=== PATIENT | male | born 1940 | race Caucasian/White ===

== ENCOUNTER → 2016-11-26 | Outpatient (CLI) | payer OTHER ==
[~2016-11-26] MED LIST: ASPEC325 PO; ATOR-22 PO; INSDGI SC; LISI-729 PO; METF-384 PO; NTRGSL/4 UT; TAMS0.4C38 PO
[2016-11-26 10:11] LABS: ESTIMATED AVERAGE GLUCOSE 163 mg/dl; HA1C FLAG Normal (Normal)
[2016-11-26 10:34] LABS: RATIO 47.7 mcg/mg (0-30.0)
[2016-11-26 10:43] LABS: ALB/GLOB RATIO 1.2 (0.9-2); ALKALINE PHOSPHATASE 74 U/L (45-117); ALT/SGPT 40 U/L (12-78); AST/SGOT 18 U/L (15-37); BLOOD UREA NITROGEN 29 mg/dl (7-18); BUN/CREATININE RATIO 20.8 (10-20); CALCIUM 9.2 mg/dl (8.5-10.1); CARBON DIOXIDE 26 mmol/L (21-32); CHLORIDE 104 mmol/L (98-107); CHOLESTEROL 111 mg/dl (0-200); CHOLESTEROL/HDL RATIO 3.1; GLUCOSE 159 mg/dl (70-99); HDL CHOLESTEROL 36 mg/dl; LDL CHOLESTEROL CALCULATED 55 mg/dl; POTASSIUM 4.9 mmol/L (3.5-5.1); SODIUM 136 mmol/L (136-145); TRIGLYCERIDES 102 mg/dl (0-150); VERY LOW DENSITY LIPOPROT CALC 20 mg/dl
== END | disposition home or self-care (01) ==
LOC: C.LAB1850 08:29
PROVIDERS: ATTEND Internal Medicine Cardiovascular Disease
DX: I10 Essential (primary) hypertension (principal); E78.00 Pure hypercholesterolemia, unspecified; E11.9 Type 2 diabetes mellitus without complications

== ENCOUNTER → 2017-06-08 | Outpatient (CLI) | payer OTHER ==
[2017-06-08 09:53] LABS: CHOLESTEROL/HDL RATIO 3.1
[2017-06-08 10:10] LABS: ESTIMATED AVERAGE GLUCOSE 148 mg/dl; HA1C FLAG Normal (Normal)
[2017-06-08 10:10] LABS: RATIO 29.2 mcg/mg (0-30.0)
== END | disposition home or self-care (01) ==
LOC: C.LAB1850 07:48
PROVIDERS: ATTEND Internal Medicine Cardiovascular Disease
DX: E78.00 Pure hypercholesterolemia, unspecified (principal); E11.9 Type 2 diabetes mellitus without complications

== ENCOUNTER 2017-09-13 08:25 | Emergency (ER) | payer OTHER ==
[~2017-09-13] VITALS: Ht 165.1 cm; Wt 84.2 kg
[2017-09-13 08:29] VITALS: TEMP 36.9; Ht 165.1 cm; Wt 84.2 kg
[2017-09-13] MEDS ORDERED: ALBUT/IPRATROP 3MG/0.5MG NEB 3 ML VIAL INH STA (08:57)
[2017-09-13 09:37] LABS: HEMATOCRIT 38.6 % (42-52); HEMOGLOBIN 13.7 g/dL (14.0-18.0); MEAN CELL VOLUME 91.7 fL (80-100); MEAN CORPUSCULAR HEMOGLOBIN 32.5 pg (25-34); MEAN CORPUSCULAR HGB CONC 35.5 g/dl (32-36); MEAN PLATELET VOLUME 8.4 fL (7.4-10.4); PLATELET COUNT 251 K/uL (130-400); RED CELL DISTRIBUTION WIDTH CV 13.3 % (11.5-14.5); RED CELL DISTRIBUTION WIDTH SD 44.4 fL (36.4-46.3); WHITE BLOOD COUNT 5.51 K/uL (4.8-10.8)
[2017-09-13 09:49] LABS: ALBUMIN 3.5 gm/dl (3.4-5.0); ALT/SGPT 30 U/L (12-78); BLOOD UREA NITROGEN 20 mg/dl (7-18); CALCIUM 8.8 mg/dl (8.5-10.1); CARBON DIOXIDE 25 mmol/L (21-32); CREATININE 1.41 mg/dl (0.60-1.40); GLUCOSE 169 mg/dl (70-99); POTASSIUM 4.6 mmol/L (3.5-5.1); SODIUM 135 mmol/L (136-145)
[2017-09-13 09:52] LABS: INR 1.1 (0.9-1.1); PTT PATIENT 28.9 SECONDS (21.0-31.0)
[2017-09-13 09:54] LABS: ALKALINE PHOSPHATASE 60 U/L (45-117); AST/SGOT 15 U/L (15-37); CKMB < 0.5 ng/ml (0.5-3.6); TOTAL PROTEIN 7.6 gm/dl (6.4-8.2)
--- NOTE | 2017-09-13 09:54 | DIAGNOSTIC IMAGING REPORT ---
CHEST ONE VIEW PORTABLE CLINICAL HISTORY: Fever, sepsis COMPARISON STUDY: October 2013 FINDINGS: The heart is enlarged. There is aortic tortuosity/ectasia. There are left basal airspace opacities suspicious for a pneumonia. Films subsequent to treatment are recommended in follow-up[ IMPRESSION: Left basal airspace opacities suspicious for pneumonia. Films subsequent to treatment are recommended in follow-up Electronically signed by: Ayush Dillon M.D. 09/13/2017 9:53 AM Dictated Date/Time: 09/13/2017 9:52 AM
[2017-09-13] MEDS ORDERED: ASPI325T39 PO (10:01)
[2017-09-13] MEDS ORDERED: INSDGI SC (10:01)
[2017-09-13 10:09] LABS: BASO % 0.4 %; BASO ABS # 0.02 K/uL (0-0.2); EOS % 0.2 %; EOS ABS # 0.01 K/uL (0-0.5); IG# 0.04 K/uL (0.00-0.02); LYMPH % 17.2 %; LYMPH ABS # 0.95 K/uL (1.2-3.4); MONO % 9.8 %; MONO ABS # 0.54 K/uL (0.11-0.59); NEUT % 71.7 %; NEUT ABS # 3.95 K/uL (1.4-6.5)
[2017-09-13 10:20] LABS: INFLUENZA B ANTIGEN Neg for Influ B (NEG)
[2017-09-13] MEDS ORDERED: LEVO-366 PO (10:55)
--- NOTE | 2017-09-13 10:56 | EMERGENCY ROOM VISIT NOTE ---
History Report prepared by Juan Manuel: Jan Claros Under the Supervision of: Dr. Ridge Gary D.O. First contact with patient: 08:51 Chief Complaint: DEHYDRATION Stated Complaint: DEHYDRATED FLU Nursing Triage Summary: Pt reports "My equilibrium is entirely off". Pt c/o cough over a week, loss of appetite, denies n/v/d. Pt daughter states "I think he has the flu. He's dehyradted" History of Present Illness The patient is a 76 year old male with a history of CAD who presents to the Emergency Room with complaints of a worsening illness that started a week ago. Per the patient's daughter, the patient started getting a bit better a few days after the onset of the illness, but started a few days ago, his symptoms worsened again and are now worse than they ever had been. The patient states that he has generalized achiness, and has had a decreased appetite. The patient says that he has not been drinking much as well, and thinks that he is dehydrated. He notes that he has had a dry cough, and has been in bed all day for the past 2 days. Per the patient's daughter, the patient was exposed to someone with the flu a week ago. He is an ex-smoker. The patient denies any vomiting. Per the patient's daughter, the patient had a recent stress echo a few months ago. The patient's daughter adds that the patient has been having increased shortness of breath on exertion recently, and may be developing COPD. Source of History: patient, family (daughter) Onset: A week ago Position: other (global - illness) Quality: other (exposed to flu) Timing: worsening Associated Symptoms: + cough (dry), + fatigue, No vomiting Note: Associated symptoms: Generalized achiness. Decreased appetite, not drinking much. Review of Systems See HPI for pertinent positives & negatives. A total of 10 systems reviewed and were otherwise negative. 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 (2) Coron Atheroscler Nos Type Vessel, [place] Or Graft (3) Diab Alicia Wo Compl, Type Ii Or Unspec Type, Not Uncntrld (4) Diverticulosis Colon (W/O Ment Of Hemorrhage) (5) Dysmetabolic Syndrome X (6) Hypertension Nos (7) Pure Hypercholesterolem Surgical Problems: (1) History of cardiac cath Family History No printed history provided Social History Smoking Status: Former Smoker Alcohol Use: occasionally Marital Status: Housing Status: lives with significant other Occupation Status: retired Current/Historical Medications Scheduled Aspirin (Aspirin Ec), 325 MG PO DAILY Atorvastatin (Lipitor), 20 MG PO HS Insulin Glargine (Lantus), 30 UNITS SC AMPM Levofloxacin (Levaquin), 500 MG PO DAILY Lisinopril (Zestril), 2.5 MG PO QAM Metformin Hcl (Glucophage), 1,000 MG PO BID Nitroglycerin (Nitrostat), 0.4 MG UT PRN Tamsulosin Hcl (Flomax), 0.4 MG PO HS Allergies Coded Allergies: No Known Allergies (Verified , 09/13/17) Physical Exam Vital Signs Date Time Temp Pulse Resp B/P (MAP) Pulse Ox O2 Delivery O2 Flow Rate FiO2 09/13/17 10:59 81 21 129/65 92 Room Air 09/13/17 09:57 70 18 146/78 96 Room Air 09/13/17 09:02 68 09/13/17 08:47 75 16 146/78 94 Room Air 09/13/17 08:29 36.9 78 20 108/56 94 Room Air Physical Exam CONSTITUTIONAL/VITAL SIGNS: Reviewed / noted above. GENERAL: Non-toxic in appearance. INTEGUMENTARY: Warm, dry, and [place]. HEAD: Normocephalic. EYES: without scleral icterus or trauma. ENT/OROPHARYNX: clear and moist. LYMPHADENOPATHY/NECK: Is supple without lymphadenopathy or meningismus. RESPIRATORY: Scattered wheezing left lung. CARDIOVASCULAR: Regular rate and rhythm. GI/ABDOMEN: Soft and nontender. No organomegaly or pulsatile mass. No rebound or guarding. Normal bowel sounds. EXTREMITIES: Warm and well perfused. BACK: No CVA tenderness. NEUROLOGICAL: Intact without focal deficits. PSYCHIATRIC: normal affect. MUSCULOSKELETAL: Normally developed with good muscle tone. Medical Decision & Procedures ER Provider Diagnostic Interpretation: X ray results and stated below per my interpretation and radiology interpretation. CHEST ONE VIEW PORTABLE CLINICAL HISTORY: Fever, sepsis COMPARISON STUDY: October 2013 FINDINGS: The heart is enlarged. There is aortic tortuosity/ectasia. There are left basal airspace opacities suspicious for a pneumonia. Films subsequent to treatment are recommended in follow-up[ IMPRESSION: Left basal airspace opacities suspicious for pneumonia. Films subsequent to treatment are recommended in follow-up Electronically signed by: Ayush Dillon M.D. 09/13/2017 9:53 AM Dictated Date/Time: 09/13/2017 9:52 AM Laboratory Results 09/13/17 09:20 Red Blood Count 4.21, Mean Corpuscular Volume 91.7, Mean Corpuscular Hemoglobin 32.5, Mean Corpuscular Hemoglobin Concent 35.5, Mean Platelet Volume 8.4, Neutrophils (%) (Auto) 71.7, Lymphocytes (%) (Auto) 17.2, Monocytes (%) (Auto) 9.8, Eosinophils (%) (Auto) 0.2, Basophils (%) (Auto) 0.4, Neutrophils # (Auto) 3.95, Lymphocytes # (Auto) 0.95, Monocytes # (Auto) 0.54, Eosinophils # (Auto) 0.01, Basophils # (Auto) 0.02 09/13/17 09:20 Test 09/13/17 09:20 09/13/17 09:30 White Blood Count 5.51 K/uL (4.8-10.8) Red Blood Count 4.21 M/uL (4.7-6.1) Hemoglobin 13.7 g/dL (14.0-18.0) Hematocrit 38.6 % (42-52) Mean Corpuscular Volume 91.7 fL (80-100) Mean Corpuscular Hemoglobin 32.5 pg (25-34) Mean Corpuscular Hemoglobin Concent 35.5 g/dl (32-36) Platelet Count 251 K/uL (130-400) Mean Platelet Volume 8.4 fL (7.4-10.4) Neutrophils (%) (Auto) 71.7 % Lymphocytes (%) (Auto) 17.2 % Monocytes (%) (Auto) 9.8 % Eosinophils (%) (Auto) 0.2 % Basophils (%) (Auto) 0.4 % Neutrophils # (Auto) 3.95 K/uL (1.4-6.5) Lymphocytes # (Auto) 0.95 K/uL (1.2-3.4) Monocytes # (Auto) 0.54 K/uL (0.11-0.59) Eosinophils # (Auto) 0.01 K/uL (0-0.5) Basophils # (Auto) 0.02 K/uL (0-0.2) RDW Standard Deviation 44.4 fL (36.4-46.3) RDW Coefficient of Variation 13.3 % (11.5-14.5) Immature Granulocyte % (Auto) 0.7 % Immature Granulocyte # (Auto) 0.04 K/uL (0.00-0.02) Prothrombin Time 11.4 SECONDS (9.0-12.0) Prothromb Time International Ratio 1.1 (0.9-1.1) Activated Partial Thromboplast Time 28.9 SECONDS (21.0-31.0) Partial Thromboplastin Ratio 1.1 Anion Gap 9.0 mmol/L (3-11) Est Creatinine Clear Calc Drug Dose 45.9 ml/min Estimated GFR () 56.5 Estimated GFR (Non- 48.7 BUN/Creatinine Ratio 14.2 (10-20) Calcium Level 8.8 mg/dl (8.5-10.1) Total Bilirubin 1.0 mg/dl (0.2-1) Direct Bilirubin 0.2 mg/dl (0-0.2) Aspartate Amino Transf (AST/SGOT) 15 U/L (15-37) Alanine Aminotransferase (ALT/SGPT) 30 U/L (12-78) Alkaline Phosphatase 60 U/L (45-117) Total Creatine Kinase 191 U/L (39-308) Creatine Kinase MB < 0.5 ng/ml (0.5-3.6) Creatine Kinase MB Ratio (0-3.0) Troponin I < 0.015 ng/ml (0-0.045) Total Protein 7.6 gm/dl (6.4-8.2) Albumin 3.5 gm/dl (3.4-5.0) Influenza Type A Antigen Neg for Influ A (NEG) Influenza Type B Antigen Neg for Influ B (NEG) Laboratory results as stated above per my review. Medications Administered Medications (Trade) Dose Ordered Sig/Jb Route Start Time Stop Time Status Last Admin Dose Admin Albuterol/ Ipratropium (Duoneb) 3 ml NOW STAT INH 09/13/17 08:57 09/13/17 09:00 DC 09/13/17 08:57 3 ML Levofloxacin (Levaquin Tab) 500 mg DAILY@11 PO 09/13/17 11:00 09/13/17 12:14 DC 09/13/17 11:20 500 MG ECG Per My Interpretation Indication: weakness Rate (beats per minute): 68 Rhythm: normal sinus Findings: other (no ST elevations, no ST depressions) ED Course 0852: Previous medical records were reviewed. The patient was evaluated in room B11B. A complete history and physical examination was performed. 0857: Ordered DuoNeb 3 ml INH. 1055: On reevaluation, the patient is resting comfortably. I discussed the results and findings with the patient. He verbalized agreement of the treatment plan. He was discharged home. 1100: Ordered Levaquin Tab 500 mg PO. Medical Decision Differentials include: Acute coronary syndrome, myocardial infarction, CVA, TIA , anemia, infection, pneumonia, UTI, pyelonephritis, poor nutrition, dehydration , electrolyte disturbance, and hypoglycemia. This is a 76-year-old male who presents to the ED with a chief complaint of cough for the past week. He has had decreased p.o. intake has felt a little off balance. There was concerns for dehydration. He denies any fevers. His cough is nonproductive. He does report some achiness as well. Last Thursday he was in contact with somebody who had the flu. His vital signs are normal. He is not febrile. His saturations are normal. EKG shows normal sinus rhythm. CBC is unremarkable, complete metabolic panel was unremarkable, troponin was negative, flu swab was negative. Chest x-ray is concerning for left base pneumonia. The patient was started on Levaquin p.o. He was felt to be stable for discharge and outpatient follow-up. Medication Reconcilliation Current Medication List: was personally reviewed by me Blood Pressure Screening Patient's blood pressure: Normal blood pressure Impression Primary Impression: Pneumonia Scribe Attestation The scribe's documentation has been prepared under my direction and personally reviewed by me in its entirety. I confirm that the note above accurately reflects all work, treatment, procedures, and medical decision making performed by me. Departure Information Dispostion Home / Self-Care Prescriptions Levofloxacin (Levaquin) 500 Mg Tab 500 MG PO DAILY for 7 Days, #7 TAB Prov: Ridge Gary D.O. 09/13/17 Referrals Kimo Lamar III, CRNP (PCP) Patient Instructions My [facility] Additional Instructions Levaquin as prescribed. Follow-up with your doctor for further care and evaluation in 1-2 days. Return to the emergency department for worsening or new symptoms or any concerns. You have been examined and treated today on an emergency basis only. This is not a substitute for, or an effort to provide, complete comprehensive medical care. It is impossible to recognize and treat all injuries or illnesses in a single emergency department visit. It is therefore important that you follow up closely with your doctor. Call as soon as possible for an appointment.
[2017-09-13 10:59] VITALS: BP 129/65; PULSE 81; O2SAT 92
[2017-09-13] MEDS ORDERED: LEVOFLOXACIN 250 MG TAB ONE (11:17)
[2017-09-13] MEDS: LEVOFLOXACIN 500 MG TAB PO SCH ×2 (11:20→11:21)
== END 2017-09-13 11:30 | disposition home or self-care (01) ==
LOC: C.EDB 08:26
DX: J18.9 Pneumonia, unspecified organism (principal); E86.0 Dehydration; E78.00 Pure hypercholesterolemia, unspecified; E11.9 Type 2 diabetes mellitus without complications; I10 Essential (primary) hypertension; Z79.899 Other long term (current) drug therapy

== ENCOUNTER → 2017-10-06 | Outpatient (CLI) | payer OTHER ==
[~2017-10-06] MED LIST changes: -ASPEC325 PO; +ASPI325T39 PO
--- NOTE | 2017-10-06 10:51 | DIAGNOSTIC IMAGING REPORT ---
CHEST 2 VIEWS ROUTINE CLINICAL HISTORY: 76 years-old Male presenting with J18.9 history of pneumonia 2 weeks ago. TECHNIQUE: PA and lateral views of the chest were obtained. COMPARISON: 09/13/2017. FINDINGS: Atherosclerosis of the aortic arch. Cardiac silhouette normal in size. Interval resolution of previously noted left lower lung opacity. No new focal opacity. No pleural effusion or pneumothorax. Osseous structures normal. Upper abdomen normal. IMPRESSION: 1. Interval resolution of left lower lung consolidation. No acute cardiopulmonary disease. Electronically signed by: Juan Mota M.D. 10/06/2017 10:49 AM Dictated Date/Time: 10/06/2017 10:48 AM
== END | disposition home or self-care (01) ==
LOC: C.RAD1850 10:34
PROVIDERS: ATTEND Nurse Practitioner Family
DX: J18.9 Pneumonia, unspecified organism (principal)

== ENCOUNTER → 2017-12-07 | Outpatient (CLI) | payer OTHER ==
[2017-12-07 10:10] LABS: ALBUMIN 3.7 gm/dl (3.4-5.0); ALKALINE PHOSPHATASE 66 U/L (45-117); ALT/SGPT 31 U/L (12-78); AST/SGOT 17 U/L (15-37); BLOOD UREA NITROGEN 23 mg/dl (7-18); CALCIUM 8.7 mg/dl (8.5-10.1); CARBON DIOXIDE 27 mmol/L (21-32); CHOLESTEROL 96 mg/dl (0-200); CREATININE 1.28 mg/dl (0.60-1.40); GLUCOSE 114 mg/dl (70-99); LDL CHOLESTEROL CALCULATED 45 mg/dl; POTASSIUM 4.8 mmol/L (3.5-5.1); SODIUM 137 mmol/L (136-145); TOTAL PROTEIN 7.2 gm/dl (6.4-8.2)
[2017-12-07 10:39] LABS: HEMOGLOBIN A1C 6.6 % (4.5-5.6)
== END | disposition home or self-care (01) ==
LOC: C.LAB1850 07:36
PROVIDERS: ATTEND Internal Medicine Cardiovascular Disease
DX: E78.00 Pure hypercholesterolemia, unspecified (principal); I10 Essential (primary) hypertension; E88.81 Metabolic syndrome and other insulin resistance; R80.9 Proteinuria, unspecified; I25.10 Atherosclerotic heart disease of native coronary artery without angina pectoris; N40.1 Benign prostatic hyperplasia with lower urinary tract symptoms; E11.9 Type 2 diabetes mellitus without complications

== ENCOUNTER 2019-03-25 08:11 | Inpatient (IN) ==
--- NOTE | 2019-02-21 15:19 | PAT Medication Instructions ---
Medication Instructions Date of Service February 21, 2019 Home Medications Medication Instructions Recorded albuterol sulfate HFA 90 2 puffs INH QID PRN #8 gm 12/22/18 mcg/actuation aerosol inhaler metoprolol succinate ER 25 mg 25 mg PO BID #60 ea 12/22/18 capsule sprinkle, ext. release 24 hr albuterol sulfate HFA 90 mcg/actuation aerosol inhaler 2 puffs INH QID PRN metoprolol succinate ER 25 mg capsule sprinkle, ext. release 24 hr 25 mg PO BID aspirin 325 mg tablet 325 mg PO HS atorvastatin 20 mg tablet 20 mg PO HS metformin 1,000 mg tablet 1,000 mg PO BID insulin degludec [Tresiba FlexTouch U-200] 46 units SQ QPM tamsulosin 0.4 mg PO HS ASK your prescriber and surgeon aspirin 325 mg tablet 325 mg PO HS DO NOT take the morning of surgery metformin 1,000 mg tablet 1,000 mg PO BID Take morning of surgery With a small sip of water, OTHERWISE NOTHING TO EAT OR DRINK AFTER MIDNIGHT: albuterol sulfate HFA 90 mcg/actuation aerosol inhaler 2 puffs INH QID PRN (use if needed; please bring with you to hospital day of surgery if possible) metoprolol succinate ER 25 mg capsule sprinkle, ext. release 24 hr 25 mg PO BID Take evening before surgery albuterol sulfate HFA 90 mcg/actuation aerosol inhaler 2 puffs INH QID PRN (if needed) metoprolol succinate ER 25 mg capsule sprinkle, ext. release 24 hr 25 mg PO BID atorvastatin 20 mg tablet 20 mg PO HS metformin 1,000 mg tablet 1,000 mg PO BID insulin degludec [Tresiba FlexTouch U-200] 46 units SQ QPM tamsulosin 0.4 mg PO HS Other Notes If you have any questions please call us at [phone] or [phone] or [phone] or [phone]
--- NOTE | 2019-02-22 10:15 | Anesthesiology Consultation ---
Date of Service February 22, 2019 Assessment & Plan (1) Encounter for pre-operative examination: - Check BSG AM DOS - ASA instructions: per surgeon/cardio - Cardio: 12/01/18: "stable from a CV standpoint." Suspect chronic exertional dyspnea related moderate LVH and diastolic dysfunction [stable at PAT visit 02/22/19]. Continued on same regimen. F/U 6 months recommended. Chart Review Chart Review: Acceptable Risk for Surgery (pending evaluation of clinical status AM DOS) and Patient seen in Pre Admission Testing Teaching & Discussion Pre-Anesthesia Teaching/Discussion Notes: Instructed NPO after midnight before surgery,except medications with 15 cc of water. Medication instructions provided according to the [facility] guidelines. History Surgery Operation Date: 03/25/19 10:40 Proposed Procedures p Left Total Shoulder Arthroplasty - Rashaun Bright DO Height/Weight Height: 5 ft 5 in Weight: 89.6 kg Allergies Allergy/AdvReac Type Severity Reaction Status Date / Time lisinopril AdvReac Mild Dizziness Verified 02/17/19 08:39 Medications Home Medications Medication Instructions Recorded Confirmed Last Taken albuterol sulfate HFA 90 2 puffs INH QID PRN #8 gm 12/22/18 02/17/19 Unknown mcg/actuation aerosol inhaler metoprolol succinate ER 25 mg 25 mg PO BID #60 ea 12/22/18 02/17/19 Unknown capsule sprinkle, ext. release 24 hr aspirin 325 mg tablet 325 mg PO HS tab 02/10/19 02/17/19 Unknown atorvastatin 20 mg tablet 20 mg PO HS #1 tab 02/10/19 02/17/19 Unknown metformin 1,000 mg tablet 1,000 mg PO BID #180 tab 02/10/19 02/17/19 Unknown insulin degludec [Tresiba 46 units SQ QPM 02/17/19 02/17/19 Unknown FlexTouch U-200] tamsulosin 0.4 mg PO HS 02/17/19 02/17/19 Unknown Past Medical History Medical History BPH (benign prostatic hyperplasia) Coronary artery disease 100% RCA with collateralization per cardio Diabetes mellitus, type 2 IDDM Hyperlipidemia Obesity Osteoarthritis Uses inhaler device ? remote hx bronchitis with inhaler PRN; per patient, no recent inhaler use/need Exercise / Class Metabolic Activity III < 4 Walking/Shop/Light housework Past Family History Family History Father Heart murmur Acute myocardial infarction Cardiac disorder Past Surgical History Surgical History History of cardiac cath 7 YEARS AGO History of colonoscopy History of repair of rotator cuff RT History of tonsillectomy History of tooth extraction Hx of vasectomy Past Anesthesia History No Hx of Anesthesia Complications and No Family Hx of Anesthesia Complications History of PONV No Hx of PONV and No Hx of Motion Sickness Social History Smoking Status: Former smoker tobacco type: cigarettes Do You Dip or Chew Tobacco: Yes (CHEWS SNUFF/PACK EVERY 2 DAYS; ADVISED NPO AM DOS) Smoking End Date: Quit 10 years ago Hx Alcohol Use: Yes Alcohol type: hard liquor alcohol intake frequency: holidays/special occasions only Hx Substance Use: No substance use type: does not use Review of Systems Patient denies chest pain, shortness of breath, reflux, cough, wheezing, palpitations. Physical Exam Vital Signs VITALS BP 117/63 P 57 TEMP 98.0 SP02 96%RA RESP 18 PHYSICAL Full neck and c-spine range of motion. Full TMJ range of motion. TMD 3 finger breaths Mallampati Score 3 Dentition: full dentures upper/lower; edentulous Lungs: clear throughout to auscultation Cardiac: regular rate and rhythm, I/ systolic murmur Spine: normal Carotid arteries: negative bruit Extremities: no edema Testing Laboratory Results 02/22/19 10:56 02/22/19 10:56 PT 10.5 Seconds (9.0-12.0) 02/22/19 10:56 INR 1.0 (0.9-1.1) 02/22/19 10:56 APTT 24.2 Seconds (21.0-31.0) 02/22/19 10:56 Hemoglobin A1c 7.6 % (4.5-5.6) H 02/22/19 10:56 Blood Type B Positive 02/22/19 10:56 Antibody Screen NEGATIVE 02/22/19 10:56 *Surgeon made aware elevated hgba1c* Electrocardiogram Date: 02/22/19 SB with first degree AVB at 54bpm. LAD. NS STA. No significant change compared to 08/2017 EKG per cardio. Chest X-Ray Date: 02/22/19 No pneumothorax. No pleural effusions. The heart remains mildly enlarged. Mild perihilar interstitial thickening most pronounced at the right lung base. This is slightly progressed. Calcifications within the aortic knob remain unchanged. Echocardiogram Date: 11/14/13 EF 54%. Mild cLVH. No RWMA. No significant valvular disease. Stress Test Date: 06/29/17 Type: DSE EF 65%. Basal inferior wall HK. Abnormal DSE with small area of proximal inferior wall ischemia at 88% MPHR. This was reviewed by cardio and felt consistent with known 100% RCA obstruction with distal collateralization (no further cardiac testing recommended).
--- NOTE | 2019-02-22 12:00 | XRay Report ---
XR chest Pre-admission PA/Lat HISTORY: Preop. COMPARISON: Chest 10/06/2017. FINDINGS: No pneumothorax. No pleural effusions. The heart remains mildly enlarged. Mild perihilar in terstitial thickening most pronounced at the right lung base. This is slightly progressed. Calcificat ions within the aortic knob remain unchanged. IMPRESSION: 1. Slight progression of the mild perihilar interstitial thickening. This is nonspecific but could re present developing congestive change. 2. Stable mild cardiomegaly. Electronically signed by: Thaddeus Park M.D. 02/22/2019 11:58 AM
[2019-02-22 12:58] LABS: Basophils # (auto) 0.02 K/uL (0-0.2); Basophils % (auto) 0.3 %; Eosinophils # (auto) 0.13 K/uL (0-0.5); Hematocrit (blood only) 35.9 % (42-52); Hemoglobin 12.2 g/dL (14.0-18.0); Immature Granulocytes # (auto) 0.03 K/uL (0.00-0.02); Immature Granulocytes % (auto) 0.5 %; Lymphocytes # (auto) 1.75 K/uL (1.2-3.4); Lymphocytes % (auto) 26.9 %; Mean Platelet Volume 9.5 fL (7.4-10.4); Monocytes # (auto) 0.32 K/uL (0.11-0.59); Monocytes % (auto) 4.9 %; Neutrophils # (auto) 4.25 K/uL (1.4-6.5); Neutrophils % (auto) 65.4 %; Platelet Count 276 K/uL (130-400); RDW Standard Deviation 47.3 fL (36.4-46.3); Red Blood Count 3.86 M/uL (4.7-6.1)
[2019-02-22 13:07] LABS: BUN Creatinine Ratio 17.2 (10-20); Calcium 8.6 mg/dl (8.5-10.1); Creatinine Clr Calc Pharmacy 46.2 ml/min; Est GFR (African American) 56.2; Est GFR (Non-African American) 48.5; Potassium 5.1 mmol/L (3.5-5.1)
[2019-02-22 13:09] LABS: Estimated Average Glucose 171 mg/dl; Hemoglobin A1C 7.6 % (4.5-5.6)
[2019-02-22 13:17] LABS: Partial Thromboplastin Ratio 0.9; Partial Thromboplastin Time 24.2 Seconds (21.0-31.0); Prothrombin Time 10.5 Seconds (9.0-12.0)
--- NOTE | 2019-03-25 06:35 | History & Physical Report ---
Date of Service March 25, 2019 Assessment & Plan (1) Osteoarthritis of left shoulder: We will proceed with a left total shoulder arthroplasty. Postoperatively he will be placed in a sling and kept overnight for postop medical management. He plans to use STEERads upon discharge. Present on Admission?: Yes History of Present Illness Chief Complaint: Primary osteoarthritis of the left shoulder Primary Care Provider: Kimo Lamar III, NIK Ronn is a pleasant 78-year-old male who is been dealing with chronic increasing left shoulder pain. X-rays and clinical examination have been diagnostic for primary osteoarthritis of the left shoulder. After failing conservative treatment, he has elected to proceed with a left total shoulder arthroplasty. Allergies Allergy/AdvReac Type Severity Reaction Status Date / Time lisinopril AdvReac Mild Dizziness Verified 02/17/19 08:39 Home Medications Home Medications Medication Instructions Recorded Confirmed Type albuterol sulfate HFA 90 2 puffs INH QID PRN #8 gm 12/22/18 02/17/19 Rx mcg/actuation aerosol inhaler metoprolol succinate ER 25 mg 25 mg PO BID #60 ea 12/22/18 02/17/19 Rx capsule sprinkle, ext. release 24 hr aspirin 325 mg tablet 325 mg PO HS tab 02/10/19 02/17/19 History atorvastatin 20 mg tablet 20 mg PO HS #1 tab 02/10/19 02/17/19 History metformin 1,000 mg tablet 1,000 mg PO BID #180 tab 02/10/19 02/17/19 History insulin degludec [Tresiba 46 units SQ QPM 02/17/19 02/17/19 History FlexTouch U-200] tamsulosin 0.4 mg PO HS 02/17/19 02/17/19 History Past Med/Surg History Medical History BPH (benign prostatic hyperplasia) Coronary artery disease 100% RCA with collateralization per cardio Diabetes mellitus, type 2 IDDM Hyperlipidemia Obesity Osteoarthritis Uses inhaler device ? remote hx bronchitis with inhaler PRN; per patient, no recent inhaler use/need Surgical History History of cardiac cath 7 YEARS AGO History of colonoscopy History of repair of rotator cuff RT History of tonsillectomy History of tooth extraction Hx of vasectomy Family History Father Heart murmur Acute myocardial infarction Cardiac disorder Social History Preferred Language: Jordanian Communication Ability: Effective Palletiser Operator Required: No Beliefs That Will Affect Care: None Current Living Situation: Family Other Information That Helps Us Care for You: No Feels Safe at Home: Yes Safety Concerns: Feels Safe At This Time Smoking Status: Former smoker Tobacco Type: cigarettes ; Do You Dip or Chew To bacco: Yes (CHEWS SNUFF/PACK EVERY 2 DAYS; ADVISED NPO AM DOS) ; Smoking End Date: Quit 10 years ago ; Second Hand Exposure: No ; Tobacco Cessation Education Requested by Patient: No Hx Alcohol Use: Yes Alcohol type: hard liquor Hx Substance Use: No Review of Systems All systems reviewed & are unremarkable except as noted in HPI & below Physical Exam Constitutional: WD/WN, vitals as above Eyes: PERRL, conjunctivae normal, anicteric sclerae ENMT: external ear and nose normal, oropharynx normal Neck: trachea midline, no thyromegaly Respiratory: normal respiratory effort Cardiovascular: RRR, no murmur, no edema Gastrointestinal (Abdomen): normal bowel sounds, soft, nontender, no hepatosplenomegaly Musculoskeletal: Physical examination of the left shoulder reveals decreased range of motion and crepitis throughout. There is good strength with full can testing and external rotation. There is tenderness palpation along the anterior glenohumeral joint line. The right upper extremity is neurovascularly intact. Psychiatric: A+Ox3, euthymic affect Results & Data Diagnostic Findings Radiographs of the left shoulder show osteoarthritis of the glenohumeral joint. There is joint space narrowing, osteophyte formation, and [id number] articulation.
[~2019-03-25 08:11] MED LIST changes: +ACETAMINOPHEN 500 MG TAB PO SCH; -ASPI325T39 PO; -ATOR-22 PO; +BUPIVACAINE 0.5 % 5 MG/1 ML PF 10ML VIAL ONE; +CEFAZOLIN 2000MG 2,000 MG/15 ML SYR IV SCH; +FAMOTIDINE 20 MG TAB PO SCH; +GABAPENTIN 300 MG CAP PO SCH; -INSDGI SC; -LISI-729 PO; +LR 15ML/HR IV SCH; +LR 60ML/HR IV SCH; -METF-384 PO; -NTRGSL/4 UT; +ROPIVACAINE 0.5% HCL/PF 150 MG, BUPIVACAINE 0.5% MPF 30 ML, EPINEPHrine 30MG/30ML (OR U... INSTIL SCH; -TAMS0.4C38 PO; +TRANEXAMIC ACID 1,000 MG **IV Intra-op IV SCH; +TRANEXAMIC ACID 1,000 MG **IV Pre-op IV SCH
--- NOTE | 2019-03-25 08:40 | History & Physical Bridge Note ---
Date of Service March 25, 2019 History & Physical Bridge Note I have examined the patient, reviewed the History & Physical and in the interval since the performance of the History & Physical I have noted the following changes of clinical significance: no changes noted
[2019-03-25] MEDS ORDERED: ONDANSETRON INJ 2 MG/ML 2 ML VIAL ONE (09:48)
[2019-03-25] MEDS ORDERED: PROPOFOL IV EMULSION 10 MG/ML 20 ML VIAL IV ONE (09:48)
[2019-03-25] MEDS ORDERED: ROCURONIUM BROMIDE 10 MG/ML 5 ML VIAL ONE (09:48)
[2019-03-25] MEDS ORDERED: MIDAZOLAM HCL 1 MG/ML 2ML VIAL ONE (09:48)
[2019-03-25] MEDS ORDERED: LIDOCAINE HCL 2% 2 ML VIAL/AMP(20MG/ML) INFIL ONE (09:48)
[2019-03-25] MEDS ORDERED: fentaNYL citrate 100 MCG/2 ML VIAL ONE (09:48)
[2019-03-25] MEDS ORDERED: ORTHO JOINT ANESTHETIC ONE (11:13)
[2019-03-25] MEDS ORDERED: ONDANSETRON INJ 2 MG/ML 2 ML VIAL IV PRN ×2 (11:45→14:14)
[2019-03-25] MEDS ORDERED: fentaNYL citrate 100 MCG/2 ML VIAL IV PRN (11:45)
[2019-03-25] MEDS ORDERED: ePHEDrine sulfate 50 MG/ML AMP IV PRN (11:45)
[2019-03-25] MEDS ORDERED: ATROPINE SULFATE 0.1 MG/ML 10ML SYR IV PRN (11:45)
[2019-03-25] MEDS ORDERED: ePHEDrine sulfate 50 MG/ML SYR ONE (11:49)
--- NOTE | 2019-03-25 12:57 | Operative Report ---
Post Operative Report Pre & Post Diagnosis Operation Date: 03/25/19 10:40 Pre-Op Diagnosis: Left Shoulder Degnerative Joint Disease Post-Op Diagnosis: Left Shoulder Degnerative Joint Disease Procedure Operation Date: 03/25/19 10:40 Actual Procedures p Left Total Shoulder Arthroplasty(Left) - Rashaun Bright DO Surgeon Rashaun Bright DO Woven Label Designer Rashaun Corea PAC Estimated Blood Loss 250 Findings Consistent with Post-Op Diagnosis Specimens Left humeral head Complications none Disposition Disposition: Recovery Room Indications Ronn is a pleasant 78-year-old male who is been complaining of chronic increasing left shoulder pain. X-rays and clinical examination were diagnostic for primary osteoarthritis of the left shoulder. After failing conservative treatment, he elected to proceed with a left total shoulder arthroplasty. Description of Procedure Implants used: I used a Biomet Comprehensive total shoulder arthroplasty system with a size 13 press fit mini humeral stem, a size 50 x 21 eccentric humeral head, and a large size glenoid with a Regenerex peg. The glenoid was cemented in place with Palacos G cement. The patient arrived at [facility] for the above procedure. There were seen in the preoperative holding area and the operative extremity was identified and signed. They were given a preoperative antibiotic and an interscalene nerve block. They were taken back to the operating room, laid on table in supine position, and put under general anesthesia. They were then put into the beachchair position. The shoulder was then prepped and draped in sterile fashion. A timeout was done and the patient in the operative extremity was properly identified. A deltopectoral approach was used. Dissection was taken down through the fascia and the deltoid was retracted laterally and the conjoined tendon was retracted medially. The anterior shoulder was exposed. The long head of the biceps tendon was tenodesed to the upper border of the pectoralis major. The subscapularis was then released off the lesser tuberosity with a centimeter of cuff tissue remaining. The inferior capsule was released and the humeral head was dislocated. The rotator cuff was inspected and intact. A canal finding reamer was sent down the center of the humeral canal. Sequential reaming up to a size 13 reamer was done. Offset reamer a proximal humeral resection guide was placed. The proximal humerus was resected at 135 of inclination and 30 of retroversion. Inferior osteophytes were then removed and the glenoid was exposed. Time was spent doing an appropriate labral release. The glenoid measured to be a size large. A 3.2 mm Steinmann pin was placed in the central hole of the glenoid vault pin guide. The glenoid was then reamed with a propeller reamer. The central post cutter was then used to prepare for the central boss. The cannulated peripheral peg drill guide was then placed and 3 peg holes were drilled. The final size large glenoid was then cemented in place with Palacos G cement. Surrounding soft tissues were then injected with 100 cc of an orthopedic pain control cocktail. Once cement had dried the proximal humerus was once again exposed. Sequential broaching of the humerus up to a size 13 broach was done. Off that broach a size 50 x 21 eccentric humeral head was trialed. The shoulder was then reduced, brought through a full range of motion and felt to be stable. The shoulder was then dislocated and the broach was removed. The final size 13 mini humeral stem implant was then impacted into place. A size 50 x 21 eccentric humeral head was then impacted onto the humeral stem. The shoulder was then reduced and once again brought through a full range of motion and felt to be stable. The subscapularis was then tenodesed back to the lesser tuberosity with transosseous FiberWire sutures and side to side sutures with the arm in 45 of external rotation. 2 sutures were placed in the lateral rotator interval. A dilute betadyne lavage was then done for 3 minutes. The joint was then irrigated with normal saline solution. Hemostasis was obtained. The skin was then closed with 2-0 Vicryl, 3-0V lock suture, and faisal. A soft dressing was placed as well as a regular arm sling. The patient was then extubated and transferred to a hospital bed. There were taken to the postanesthesia care unit in stable condition. The tolerated the procedure well. I attest to the content of the Intraoperative Record and any orders documented therein. Any exceptions are noted below.
[2019-03-25] MEDS ORDERED: ESMOLOL HCL INJ 10 MG/ML 10ML VIAL IV ONE (13:15)
[2019-03-25] MEDS ORDERED: NEOSTIGMINE METHYLSULFATE 5 MG/5 ML SYR ONE (13:15)
[2019-03-25] MEDS ORDERED: GLYCOPYRROLATE 0.2 MG/ML VIAL ONE (13:15)
--- NOTE | 2019-03-25 13:44 | Anesthesiology Progress Note ---
Date of Service March 25, 2019 Anesthesia Post Procedure Vital Signs Vital Signs: Temp Pulse Pulse Resp BP Pulse Ox 03/25/19 13:40 57 L 16 123/57 L 100 03/25/19 13:30 62 16 118/59 L 99 03/25/19 13:20 36.5 C 64 16 85/72 L 99 03/25/19 08:57 36.6 C 49 L 20 137/68 98 Pain Intensity Left Shoulder: Pain Intensity: 2 Transfer of Care Handoff Completed per policy Notes Mental Status: alert / awake / arousable and participated in evaluation Patient Amnestic to Procedure: Yes Nausea / Vomiting: adequately controlled Pain: adequately controlled Airway Patency, RR, SpO2: stable & adequate BP & HR: stable & adequate Hydration State: stable & adequate Anesthetic Complications: no major complications apparent and Pt Satisfied with anesthetic care Notes: block is functioning well
[2019-03-25] MEDS ORDERED: OXYCODONE HCL IR 5 MG TAB (IMMEDIATE RELEASE) PO PRN (14:14)
[2019-03-25] MEDS ORDERED: METOCLOPRAMIDE HCL INJ 5 MG/ML 2 ML VIAL IV PRN (14:14)
[2019-03-25] MEDS ORDERED: ALBUTEROL HFA 8 GM INHALER INH PRN (14:14)
[2019-03-25] MEDS ORDERED: NALOXONE HCL 0.4 MG/1 ML VIAL/CARP IV PRN (14:14)
[2019-03-25] MEDS ORDERED: SODIUM CHLORIDE 0.9% 1000ML 1,000 ML IV SCH (14:14)
[2019-03-25] MEDS ORDERED: MAGNESIUM HYDROXIDE SUSP 30 ML UDC PO PRN (14:14)
[2019-03-25] MEDS ORDERED: HYDROmorphone INJ 0.5 MG/0.5 ML SYR IV PRN (14:14)
[2019-03-25] MEDS ORDERED: BISACODYL 10 MG SUPP PR PRN (14:14)
[2019-03-25] MEDS ORDERED: PHARMACY GLYCEMIC MGMT CONSULT PRN (14:30)
--- NOTE | 2019-03-25 14:41 | XRay Report ---
XR shoulder LT min 2V routine CLINICAL HISTORY: Post shoulder surgery COMPARISON: June 2018 DISCUSSION: There are postsurgical changes of a total left shoulder arthroplasty. There is no disloca tion. There are no fractures. Overlying skin faisal are evident. IMPRESSION: Postsurgical changes of a total left shoulder arthroplasty Electronically signed by: Ayush Dillon M.D. 03/25/2019 2:40 PM
[2019-03-25] MEDS ORDERED: DEXTROSE 50% 50 ML SYRINGE IV PRN (15:00)
[2019-03-25] MEDS ORDERED: GLUCOSE 40% GEL 15 GM TUBE PO PRN (15:00)
[2019-03-25] MEDS ORDERED: GLUCOSE 10 TABS/TUBE PO PRN (15:00)
[2019-03-25] MEDS ORDERED: CARBOHYDRATES FOR HYPOGLYCEMIA PO PRN (15:00)
[2019-03-25] MEDS ORDERED: GLUCAGON FOR INJ 1 MG VIAL SQ PRN (15:00)
--- NOTE | 2019-03-25 16:12 | Pharmacy Report ---
Pharmacy Glycemic Short Note 2 - Date of Service March 25, 2019 - Glycemic Short BSG Results (Last 24 hours): 03/25/19 03/25/19 08:39 14:00 POC Glucose 138 H 140 H OUTPATIENT ANTIDIABETIC REGIMEN: * Tresiba 46 units SQ qPM + metformin 1000 mg PO BID * A1c 7.6% 02/22/19 ASSESSMENT: * 78 yr old T2DM male s/p left total shoulder arthroplasty * Patient was not administered steroids in the [facility]-op setting * Basal insulin dose will be based on home usage of 46 units per day * Novolog parameters will be based on weight/stress 2 * Metformin will be resumed once patient is tolerating oral diet and there is evidence of renal function at baseline PLAN FOR INPATIENT GLYCEMIC CONTROL: * Hold outpatient oral diabetes medications * Basal insulin * Lantus SQ qPM per scale: * 35 units for BSG < 140 * 46 units for BSG 140 - 180 (home dose) * 55 units for BSG > 180 * Bolus insulin * NovoLog per scale ACHS or Q6hrs while NPO * Goal Range: Low 110 mg/dL - High 140 mg/dL * Correction Factor: 25 mg/dL/unit * Nutritional / Prandial insulin per carb ratio of 1 unit per 9 grams CHO consumed
[2019-03-25] MEDS: KETOROLAC TROMETHAMINE 15 MG/ML VIAL IV SCH ×2 (17:13→21:03)
[2019-03-25] MEDS: INSULIN ASPART 100 UNITS/ML 3 ML PEN SC SCH ×2 (18:28→20:49)
[2019-03-25] MEDS: DOCUSATE SODIUM 100 MG CAP PO SCH (20:43)
[2019-03-25] MEDS: METOPROLOL SUCC 25MG EXT REL TAB PO SCH (20:43)
[2019-03-25] MEDS: CEFAZOLIN 2000MG 2,000 MG/15 ML SYR IV SCH (20:51)
[2019-03-25] MEDS ORDERED: INSULIN GLARGINE SOLOSTAR 100 UNITS/ML 3 ML PEN SC SCH (21:00)
[2019-03-25] MEDS ORDERED: ASPIRIN 325 MG ECTAB PO SCH (21:00)
[2019-03-25] MEDS ORDERED: TAMSULOSIN HCL 0.4 MG CAP PO SCH (21:00)
[2019-03-25] MEDS ORDERED: ATORVASTATIN 20 MG TAB PO SCH (21:00)
[2019-03-25] MEDS ORDERED: SENNA 8.6 MG TAB PO SCH (21:00)
[2019-03-25] MEDS: ACETAMINOPHEN 500 MG TAB PO SCH (21:02)
[2019-03-26] MEDS: KETOROLAC TROMETHAMINE 15 MG/ML VIAL IV SCH ×2 (03:51→10:31)
[2019-03-26] MEDS: CEFAZOLIN 2000MG 2,000 MG/15 ML SYR IV SCH (03:52)
[2019-03-26] MEDS: ACETAMINOPHEN 500 MG TAB PO SCH (05:32)
[2019-03-26 07:17] LABS: Basophils # (auto) 0.01 K/uL (0-0.2); Basophils % (auto) 0.1 %; Eosinophils # (auto) 0.02 K/uL (0-0.5); Eosinophils % (auto) 0.2 %; Hematocrit (blood only) 33.6 % (42-52); Hemoglobin 11.4 g/dL (14.0-18.0); Immature Granulocytes # (auto) 0.03 K/uL (0.00-0.02); Immature Granulocytes % (auto) 0.4 %; Lymphocytes # (auto) 1.09 K/uL (1.2-3.4); Lymphocytes % (auto) 12.7 %; Mean Corpuscular Hgb Conc 33.9 g/dL (32-36); Mean Corpuscular Volume 93.3 fL (80-100); Mean Platelet Volume 8.6 fL (7.4-10.4); Monocytes # (auto) 0.74 K/uL (0.11-0.59); Monocytes % (auto) 8.6 %; Neutrophils # (auto) 6.68 K/uL (1.4-6.5); Platelet Count 217 K/uL (130-400); RDW Coefficient of Variation 14.3 % (11.5-14.5); RDW Standard Deviation 48.8 fL (36.4-46.3); White Blood Count 8.57 K/uL (4.8-10.8)
[2019-03-26 07:52] LABS: BUN Creatinine Ratio 16.5 (10-20); Calcium 8.3 mg/dl (8.5-10.1); Creatinine Clr Calc Pharmacy 39.7 ml/min; Est GFR (African American) 47.4; Est GFR (Non-African American) 40.9; Potassium 4.4 mmol/L (3.5-5.1)
--- NOTE | 2019-03-26 08:21 | Orthopedic Progress Note ---
Date of Service March 26, 2019 Assessment & Plan (1) Osteoarthritis of left shoulder: Overall he is doing very well. Is not having much pain in the left shoulder. He will be seen by physical therapy this morning for range of motion exercises and ambulation. He can be discharged home later today. He will follow-up with orthopedics in 2 weeks. Present on Admission?: Yes Subjective Ronn was seen and examined at bedside this morning. Overall he is doing very well. Is not having great he was able to get some sleep last night. He has no complaints. Physical Exam 2 Musculoskeletal: On physical examination of the left shoulder, the dressing is clean and dry. He has a little bit of extension of his fingers but the nerve bl ock is still working. He has minimal motion of his left hand. Results & Data Vital Signs (Past 12 Hours) Vital Signs Temp Pulse Pulse Resp BP Pulse Ox 03/26/19 07:26 36.8 C 64 16 133/64 98 03/26/19 07:00 36.8 C 61 17 149/75 H 93 03/26/19 03:18 36.9 C 66 18 138/69 97 03/26/19 00:00 36.7 C 63 17 146/70 H 95 03/25/19 21:39 151/76 H 03/25/19 20:40 66 176/78 H Laboratory Results H & H 02/22/19 03/26/19 Range/Units 10:56 06:43 Hgb 12.2 L 11.4 L (14.0-18.0) g/dL Hct 35.9 L 33.6 L (42-52) % Coagulation 02/22/19 Range/Units 10:56 INR 1.0 (0.9-1.1) Diagnostic Findings Postoperative x-rays of the left shoulder show the prosthesis to be in anatomic alignment without any evidence of fracture, dislocation, or loosening. PG Care Time/CCT Total # of Minutes Spent Total Time Spent with Patient: Total time spent is greater than 50% in coordination of care (as documented) at patient's floor/unit and/or counseling patient:
--- NOTE | 2019-03-26 08:22 | Discharge Summary ---
Date of Service March 26, 2019 Admission HPI Per Admitting Provider Ronn is a pleasant 78-year-old male who is been dealing with chronic increasing left shoulder pain. X-rays and clinical examination have been diagnostic for primary osteoarthritis of the left shoulder. After failing conservative treatment, he has elected to proceed with a left total shoulder arthroplasty. Principal Diagnosis Left total shoulder arthroplasty Discharge Data Allergies Allergy/AdvReac Type Severity Reaction Status Date / Time lisinopril AdvReac Mild Dizziness Verified 03/25/19 08:49 Consultations 03/25/19 14:14 Consult Case Management - Discharge Planning Routine Procedures Performed Operation Date: 03/25/19 10:40 Actual Procedures p Left Total Shoulder Arthroplasty(Left) - Rashaun Bright DO Ordered Studies 03/25/19 05:00 US - OR guided needle placemen Routine Hospital Course (1) Osteoarthritis of left shoulder: On March 25, 2019 Ronn arrived at [facility] in the hospital and underwent a left total shoulder arthroplasty without complication. He had a general anesthetic and a left interscalene nerve block. Postoperatively he was placed in arm sling and discharged to general orthopedic floors. His hospital course is uneventful. On postop day #1 his H&H was stable and his pain was well controlled. He was able to participate well with physical therapy doing range of motion exercises. He was then discharged home. He will follow-up with orthopedics in 2 weeks. Total Time Total Time Spent Total Time Spent (In Minutes): 20 Discharge Plan Discharge Items Patient Disposition: Home - Home Health Services Reason For Visit: Left Shoulder Degnerative Joint Disease Discharge Diagnosis: Left total shoulder arthroplasty Discharge Goals: Decrease discomfort and Improve function Activity: Per 'Additional Instructions' section Non-emergency contact: Surgeon Call non-emergency contact if: your wound has increased redness and your wound has increased drainage Follow-up/Referrals: Kimo Lamar III, CRNP [Primary Care Provider] - Diet: Carb Consistent or DM2 Addtl Provider Instructions: Activity and Therapy Recommendations: * If you are using [facility] then therapy will be provided at your home until they feel you have accomplished all of your goals. * If you are using [facility] then Physical Therapy will be provided until they feel you are ready to start Outpatient Physical Therapy. * If you are not using home therapy then Outpatient Physical Therapy should start about 3-5 days from your day of surgery. Therapy will last about 8-12 weeks * Wear your sling for 3 weeks, unless otherwise instructed. You may remove your sling to shower and to dress, but otherwise, you should be in your sling at all times, including while sleeping * The shoulder replacement is very stable and you can use your hand while in the sling * You were shown a series of exercises in the hospital. Do these exercises daily including the exercises you were shown in physical therapy. Medications: * Narcotic You will likely be sent home from the hospital with a prescription for the narcotic pain medication that worked best throughout your stay. * Other medications may be prescribed for specific circumstances. If you have any questions, please call the office at . * Resume previous home medications unless otherwise instructed Dressing Care: Leave the plastic dressing in place for 5 days. After 5 days you may remove the plastic dressing. If the incision is not draining then you may leave the faisal open to air. If there is a little bit of drainage or if the faisal are getting stuck on your clothing then cover the incision with a dry dressing. The faisal will be removed at your 2 week follow-up appointment. Showering: You may shower with the plastic dressing in place. Let the shower spray hit the other shoulder. You can pat the plastic dry. If the dressing becomes wet underneath the plastic then simply remove the dressing. Keep the incision dry until you are 5 days out from the day of surgery. At that time you can shower with the faisal exposed. Let the soapy shower water run over the faisal and pat them dry. Do not scrub or soak the incision. Things To Watch For: * Drainage from the incision site that occurs more than one week after your surgery. * Increased redness at the incision site. * Fever above 102 degrees Fahrenheit. * Unusual chest pain or shortness of breath. * Call [facility] at with any of the above problems Follow-Up Visit: Follow-up with Dr. Bright 2-3 weeks after your day of surgery. An appointment was probably scheduled when you signed-up for surgery in the office. If you have any questions call Office Instructions: More detailed instructions as well as Frequently Asked Questions were provided in a folder by our office when you signed-up for surgery. Please review these instructions when you get home. If you have any further questions or concerns, please feel free to call the office at [phone] Prescriptions: New oxycodone 5 mg Tablet 5 mg PO Q4H PRN (Reason: pain) Qty: 20 RF: 0 Continued metoprolol succinate 25 mg capsule,sprinkle,ER 24hr 25 mg PO BID Qty: 60 RF: 2 albuterol sulfate [ProAir HFA] 90 mcg/actuation HFA aerosol inhaler 2 puffs INH QID PRN (Reason: shortness of breath or wheezing) Qty: 8 RF: 0 atorvastatin 20 mg tablet 20 mg PO HS Qty: 1 RF: 0 aspirin 325 mg tablet 325 mg PO HS RF: 0 metformin 1,000 mg tablet 1,000 mg PO BID Qty: 180 RF: 0 tamsulosin 0.4 mg Capsule 0.4 mg PO HS RF: 0 Tresiba FlexTouch U-200 200 unit/mL (3 mL) insulin pen 46 units SQ QPM RF: 0 Stand-Alone Forms: [facility] Discharge Orders: Discharge Order (Routine); Ordered 03/26/19 Ordered By: Rashaun Bright Admission Data Admit Date/Time: 03/25/19 13:22 Attending Provider: Rashaun Bright Admit Provider: Rashaun Bright Primary Care Provider: Kimo Lamar III Service: Surgical Services
[2019-03-26] MEDS: METOPROLOL SUCC 25MG EXT REL TAB PO SCH (08:42)
[2019-03-26] MEDS: DOCUSATE SODIUM 100 MG CAP PO SCH (08:42)
[2019-03-26] MEDS: INSULIN ASPART 100 UNITS/ML 3 ML PEN SC SCH (08:43)
[2019-03-26] MEDS ORDERED: MULTIVITAMIN TAB PO SCH (09:00)
== END 2019-03-26 11:19 | disposition home health service (06) | DRG 483 ==
LOC: ASU 08:11 → 3E 13:22

== ENCOUNTER 2021-04-06 15:04 | Observation (INO) ==
--- NOTE | 2021-04-06 15:27 | Emergency Department Note ---
Impression & Plan Syncope and collapse Admission ED Provider Note HPI: The patient is a 80-year-old gentleman with history of hypertension, coronary artery disease, insulin-dependent diabetes, presents the emergency department with a chief complaint of several presyncopal episodes over the past month. Patient states that the last episode of actual syncope when he completely lost consciousness was 2 to 3 weeks ago. He states, however, that he has had multiple issues with presyncope since. He states that he was discussing the symptoms with some of his friends today who recommended that he come to the emergency department to be evaluated. Patient states that at times when he ambulates or walks long distances he gets a sensation as if he is going to pass out. He denies any chest pain, states at times he does get some intermittent shortness of breath. Denies any recent coughing or fevers. Patient states currently he feels well, denies any chest pain or shortness of breath on my evaluation. He is otherwise in no acute distress on arrival to the ED, hemodynamically stable, no focal deficits. He is saturating well on room air on my initial assessment. ROS: - Neuro: Presyncope *10 point review systems was conducted and is otherwise negative unless stated above *Outpatient medications and allergy history reviewed PE: General: Alert, NAD HEENT: Normocephalic, atraumatic, trachea midline Eyes: Extraocular eye movement is intact, no scleral erythema Pulmonary: Clear to auscultation bilaterally, no wheezing Cardio: Regular rate and rhythm, systolic murmur GI: Abdomen is soft, nontender : No suprapubic tenderness, no flank tenderness to palpation bilaterally MSK: No evidence of trauma or malformation of the extremities, no edema Skin: No evidence of rash Neuro: Alert, no focal deficits, Symmetrical facial movements are appreciated, equal bilateral personnel and payroll technician strength, patient is ambulatory without issue in the ED Psychiatric: Cooperative Order placed for cardiac monitoring, patient noted to be in Sinus rhythm with Regular rate ED Interventions:Patient was given IV fluid bolus EKG: - Time:1531 - Rate:54 - Rhythm:Sinus bradycardia with first-degree AV block, Bifascicular block - Intervals:WV interval 256 ms, QRS 140 ms, QTC 432 ms - ST changes:No ST elevation Medical Decision Making: On my evaluation the patient appears well, lab work-up was initiated, troponin is negative x1, Creatinine slightly elevated beyond baseline,D-dimer was elevated therefore CT angiography of the chest was performed that shows some aortic valvular calcifications. Patient was given IV fluids in the ED. CT scan of the head does not show any evidence of an acute process. Patient's EKG shows evidence of a bifascicular block with prolonged WV interval. Case was discussed with on-call cardiology, Dr. Harrison, EKG reviewed, recommendation was made for the patient to be admitted to a telemetry bed for evaluation for possible pacemaker to be placed given EKG changes. Patient is in agreement to this plan. Case was discussed with the on-call hospitalist Dr. Mai, who is in agreement for admission for cardiology consultation and further care. Patient was admitted in stable condition. * Diagnosis: Presyncope, abnormal EKG * Disposition: Admission Salvador Salmon DO Emergency Medicine Past Med/Surg History Medical History (Updated 04/06/21 @ 19:14 by Salvador Salmon DO) BPH (benign prostatic hyperplasia) Ch DVT/embl low ext NOS Coronary artery disease 100% RCA with collateralization per cardio Diabetes mellitus, type 2 IDDM Diverticulosis of colon Hyperlipidemia Obesity Osteoarthritis Uses inhaler device ? remote hx bronchitis with inhaler PRN; per patient, no recent inhaler use/need Surgical History History of cardiac cath 7 YEARS AGO History of colonoscopy History of repair of rotator cuff RT History of tonsillectomy History of tooth extraction Hx of vasectomy Status post total shoulder arthroplasty Left- done 03/25/[address] Bright Family History Father Heart murmur Acute myocardial infarction Cardiac disorder Myocardial infarction Denies family history of Ovarian cancer Prostate cancer Breast cancer Colorectal cancer Social History Smoking Status: Never smoker Tobacco Type: Cigarettes and Cigars Age Started Using Tobacco: 8; Age Quit Using Tobacco: 62; packs per day: 1; Years Smoked: 56; Second Hand Exposure: No; Hx Alcohol Use: Yes Alcohol type: hard liquor Alcohol Intake Frequency: Monthly or Less Hx Substance Use: No Preferred Language: Iranian Communication Ability: Effective Visual Impairment: No Limitations Hearing Ability: Normal Photo Cartographer Required: No Beliefs That Will Affect Care: None marital status: / Current Living Situation: Family current occupational status: retired Feels Safe at Home: Yes Childhood Exposure to Second-Hand Smoke: Yes Dental Care, Regularly: No Physical Activity Frequency: Does not Exercise Seatbelt Use: sometimes Sunscreen Use: No Assistive Devices: Denture - Upper and Denture - Lower Allergies Allergies Allergy/AdvReac Type Severity Reaction Status Date / Time lisinopril AdvReac Mild Dizziness Verified 04/06/21 16:13 Home Meds Home Medications Medication Instructions Recorded Confirmed aspirin 325 mg tablet 325 mg PO HS tab 02/10/19 04/06/21 blood-glucose meter (Axion BioSystemsTouch #1 ea 03/29/19 02/28/21 Ultra2 Meter) lancets 33 gauge (OneTouch Delica #100 ea 03/29/19 02/28/21 Plus Lancet) pen needle, diabetic 31 gauge x #30 ea 03/29/19 02/28/21 3/16" (BD Ultra-Fine Mini Pen Needle) metformin 1,000 mg tablet 1,000 mg PO BID 04/06/21 04/06/21 Previous Rx's Medication Instructions Recorded albuterol sulfate 90 mcg/actuation 2 puffs INH QID PRN #8 gm 12/22/18 aerosol inhaler (ProAir HFA) tamsulosin 0.4 mg capsule 0.4 mg PO DAILY #90 cap 11/07/20 dulaglutide 0.75 mg/0.5 mL 0.75 mg SUBCUT ONCE #6 ml 11/12/20 subcutaneous pen injector (Trulicity) insulin degludec 200 unit/mL (3 46 unit SQ QPM #21 ml 12/11/20 mL) subcutaneous pen (Tresiba FlexTouch U-200 insulin) atorvastatin 20 mg tablet 20 mg PO HS #90 tab 12/24/20 blood sugar diagnostic (OneTouch #200 ea 12/24/20 Ultra Blue Test Strip) metoprolol succinate 25 mg 25 mg PO DAILY #90 tab 02/18/21 tablet,extended release 24 hr (Toprol XL) Results & Data (ED) Vital Signs Vital Signs - 24 hr 04/06/21 15:15 04/06/21 15:42 04/06/21 16:49 Temperature 36.6 C 36.8 C 36.7 C Temperature Source Temporal Artery Scan Oral Oral Pulse Rate 61 652 H Pulse Rate [Apical] 53 L 147 H Pulse Rhythm Regular Pulse Rhythm [Apical] Regular Regular Pulse Strength [Apical] Normal Normal Respiratory Rate 18 18 16 Respiratory Effort / Characteristics Non-Labored Non-Labored Non-Labored Respiratory Depth Normal Normal Normal Respiratory Pattern Regular Regular Blood Pressure 121/70 Blood Pressure [Left Arm] 139/77 147/79 H Blood Pressure Mean 87 Blood Pressure Mean [Left Arm] 97 101 Pulse Oximetry 97 98 97 Oxygen Delivery Method Room Air Room Air Room Air Sepsis Recent Fever Within 48 Hours No Sepsis New/Unexplained Change in Mental Status No Sepsis Action Taken by Nursing No Action Required 04/06/21 18:18 Temperature 36.7 C Temperature Source Oral Pulse Rate Pulse Rate [Apical] 55 L Pulse Rhythm Pulse Rhythm [Apical] Regular Pulse Strength [Apical] Normal Respiratory Rate 17 Respiratory Effort / Characteristics Non-Labored Respiratory Depth Normal Respiratory Pattern Regular Blood Pressure Blood Pressure [Left Arm] 165/71 H Blood Pressure Mean Blood Pressure Mean [Left Arm] 102 Pulse Oximetry 97 Oxygen Delivery Method Room Air Sepsis Recent Fever Within 48 Hours Sepsis New/Unexplained Change in Mental Status Sepsis Action Taken by Nursing Laboratory Data Result diagrams: 04/06/21 15:45 04/06/21 15:45 Lab Results 04/06/21 04/06/21 04/06/21 Range/Units 15:45 15:45 15:45 WBC 5.52 (4.8-10.8) K/uL RBC 4.01 L (4.7-6.1) M/uL Hgb 12.7 L (14.0-18.0) g/dL Hct 37.4 L (42-52) % MCV 93.3 (80-100) fL MCH 31.7 (25-34) pg MCHC 34.0 (32-36) g/dL RDW Std Deviation 50.8 H (36.4-46.3) fL RDW Coeff of Karin 15.0 H (11.5-14.5) % Plt Count 310 (130-400) K/uL MPV 8.2 (7.4-10.4) fL Immature Gran % (Auto) 0.4 % Neut % (Auto) 58.5 % Lymph % (Auto) 29.7 % Elbert % (Auto) 8.5 % Eos % (Auto) 2.5 % Baso % (Auto) 0.4 % Neut # (Auto) 3.23 (1.4-6.5) K/uL Lymph # (Auto) 1.64 (1.2-3.4) K/uL Elbert # (Auto) 0.47 (0.11-0.59) K/uL Eos # (Auto) 0.14 (0-0.5) K/uL Baso # (Auto) 0.02 (0-0.2) K/uL Immature Gran # (Auto) 0.02 (0.00-0.02) K/uL PT 10.3 (9.0-12.0) Seconds INR 1.0 (0.9-1.1) D-Dimer 600 H* (0-500) ug/L FEU Sodium 141 (136-145) mmol/L Potassium 4.1 (3.5-5.1) mmol/L Chloride 109 H (98-107) mmol/L Carbon Dioxide 29 (21-32) mmol/L Anion Gap 3.0 (3-11) BUN 21 H (7-18) mg/dl Creatinine 1.49 H (0.6-1.4) mg/dl Est Cr Clr Drug Dosing 41.8 ml/min Est GFR ( Amer) 51.4 ml/min Est GFR (Non-Af Amer) 44.3 ml/min BUN/Creatinine Ratio 14.2 (10-20) Glucose 127 H (70-99) mg/dl Calcium 8.5 (8.5-10.1) mg/dl Magnesium 2.0 (1.8-2.4) mg/dl Total Bilirubin 0.5 (0.2-1) mg/dl AST 13 L (15-37) U/L ALT 25 (12-78) U/L Alkaline Phosphatase 107 (45-117) U/L Troponin I < 0.015 (0-0.045) ng/ml Total Protein 7.1 (6.4-8.2) gm/dl Albumin 3.7 (3.4-5.0) gm/dl Globulin 3.4 (2.5-4.0) gm/dl Albumin/Globulin Ratio 1.1 (0.9-2) Urine Color Urine Appearance (Clear) Urine pH (4.5-7.5) Ur Specific [place] (1.000-1.030) Urine Protein (Negative) Urine Glucose (UA) (Negative) Urine Ketones (Negative) Urine Blood (Negative) Urine Nitrite (Negative) Urine Bilirubin (Negative) Urine Urobilinogen (Negative) Ur Leukocyte Esterase (Negative) COVID-19 Eval Order 04/06/21 04/06/21 Range/Units 15:45 19:31 WBC (4.8-10.8) K/uL RBC (4.7-6.1) M/uL Hgb (14.0-18.0) g/dL Hct (42-52) % MCV (80-100) fL MCH (25-34) pg MCHC (32-36) g/dL RDW Std Deviation (36.4-46.3) fL RDW Coeff of Karin (11.5-14.5) % Plt Count (130-400) K/uL MPV (7.4-10.4) fL Immature Gran % (Auto) % Neut % (Auto) % Lymph % (Auto) % Elbert % (Auto) % Eos % (Auto) % Baso % (Auto) % Neut # (Auto) (1.4-6.5) K/uL Lymph # (Auto) (1.2-3.4) K/uL Elbert # (Auto) (0.11-0.59) K/uL Eos # (Auto) (0-0.5) K/uL Baso # (Auto) (0-0.2) K/uL Immature Gran # (Auto) (0.00-0.02) K/uL PT (9.0-12.0) Seconds INR (0.9-1.1) D-Dimer (0-500) ug/L FEU Sodium (136-145) mmol/L Potassium (3.5-5.1) mmol/L Chloride (98-107) mmol/L Carbon Dioxide (21-32) mmol/L Anion Gap (3-11) BUN (7-18) mg/dl Creatinine (0.6-1.4) mg/dl Est Cr Clr Drug Dosing ml/min Est GFR ( Amer) ml/min Est GFR (Non-Af Amer) ml/min BUN/Creatinine Ratio (10-20) Glucose (70-99) mg/dl Calcium (8.5-10.1) mg/dl Magnesium (1.8-2.4) mg/dl Total Bilirubin (0.2-1) mg/dl AST (15-37) U/L ALT (12-78) U/L Alkaline Phosphatase (45-117) U/L Troponin I (0-0.045) ng/ml Total Protein (6.4-8.2) gm/dl Albumin (3.4-5.0) gm/dl Globulin (2.5-4.0) gm/dl Albumin/Globulin Ratio (0.9-2) Urine Color Yellow Urine Appearance Clear (Clear) Urine pH 6.0 (4.5-7.5) Ur Specific [place] 1.007 (1.000-1.030) Urine Protein Negative (Negative) Urine Glucose (UA) Trace H (Negative) Urine Ketones Negative (Negative) Urine Blood Negative (Negative) Urine Nitrite Negative (Negative) Urine Bilirubin Negative (Negative) Urine Urobilinogen Negative (Negative) Ur Leukocyte Esterase Negative (Negative) COVID-19 Eval Order Covid19 at [facility] Administered Medications Discontinued Medications Sodium Chloride (Nss) 500 mls @ 999 mls/hr IV .Q31M STARLA Stop: 04/06/21 16:00 Last Infusion: 04/06/21 17:36 Dose: 0 mls/hr Documented by: [id number] Admin: 04/06/21 16:18 Dose: 999 mls/hr Documented by: [id number] Ioversol (Optiray 320 125ml) 117 ml IV ONCE ONE Stop: 04/06/21 17:50 Last Admin: 04/06/21 17:50 Dose: 117 ml Documented by: [id number] Imaging Data Radiologist's Impression: Chest X-Ray 04/06/21 15:24 XR chest 1V portable CLINICAL HISTORY: syncope COMPARISON STUDY: Chest radiograph February 22, 2019. FINDINGS: Lung volumes are normal. Lungs are clear. There is no pneumothorax. Cardiac size is stable. Mediastinal contours are normal. There is no evidence for pulmonary edema. Left shoulder arthroplasty is partially imaged. Postoperative findings within the right shoulder are incidentally noted as well. Several old left rib fractures are noted. There is a possible trace right pleural effusion. IMPRESSION: No acute cardiopulmonary findings. ACT 112: Negative or not required by law. Electronically signed by: Tip Liu M.D. 04/06/2021 3:[address] 04/06/21 15:25 CT OF THE HEAD WITHOUT CONTRAST CLINICAL HISTORY: Syncope. COMPARISON STUDY: Head CT November 13, 2013. CT DOSE: 537.48 mGy.cm TECHNIQUE: Helical axial images of the head were obtained without IV contrast. Automated exposure control was utilized for the study. A dose lowering technique was utilized adhering to the principles of ALARA. FINDINGS: No acute intracranial hemorrhage, midline shift or mass effect is present. The ventricular system is unremarkable. The basal cisterns are patent. No extra-axial collections are present. There are no findings to suggest acute dural sinus thrombosis or acute territorial infarct. No significant calvarial abnormalities are present. Visualized portions of the sinuses and mastoid air cells are clear. IMPRESSION: No acute intracranial findings. ACT 112: Negative or not required by law. Electronically signed by: Tip Liu M.D. 04/06/2021 4:04 PM Chest CTA 04/06/21 17:41 CT ANGIOGRAPHY OF THE CHEST, PULMONARY EMBOLUS PROTOCOL CLINICAL HISTORY: Shortness of breath. Syncope. COMPARISON STUDY: Chest radiograph February 22, 2019 and April 06, 2021. TECHNIQUE: Following IV administration of 117 mL of Optiray, helical axial images of the chest were obtained utilizing the pulmonary embolus protocol. Maximal intensity projections and sagittal and coronal reformats were viewed on an independent 3D workstation. IV contrast was administered without complication. Automated exposure control was utilized for the study. A dose lowering technique was utilized adhering to the principles of ALARA. CT DOSE: 392.55 mGy.cm FINDINGS: No pulmonary emboli are identified. There is no thoracic aortic dissection. Note is made of moderate aortic valvular and supravalvular calcification. Caliber of the thoracic aorta is normal. There is moderate plaque of the descending thoracic aorta. There is moderate coronary artery calcification. No pericardial effusion is present. There is a small hiatal hernia. There is no thoracic lymphadenopathy. There is no consolidation to suggest pneumonia. No pneumothorax or pleural effusion is present. No acute fracture or suspicious lesion is identified within visualized portions of the bony thorax. IMPRESSION: 1. No pulmonary emboli identified. 2. No acute process within the chest. 3. Mild to moderate aortic valvular/supravalvular calcification. Echocardiography could be performed if clinical suspicion for aortic stenosis. Normal caliber thoracic aorta. No thoracic aortic dissection. 4. Moderate coronary artery calcification. ACT 112: Negative or not required by law. Electronically signed by: Tip Liu M.D. 04/06/2021 6:26 PM Discharge Plan Visit Data Chief Complaint: Syncope (Near Syncope) Stated Complaint: PASSING OUT ED Provider: Salvador Salmon Discharge Problem: Syncope and collapse Forms Stand Alone Forms: My [facility] TimePoints Prescriptions Prescriptions: No Action albuterol sulfate [ProAir HFA] 90 mcg/actuation HFA aerosol inhaler 2 puffs INH QID PRN (Reason: shortness of breath or wheezing) Qty: 8 RF: 0 tamsulosin 0.4 mg capsule 0.4 mg PO DAILY Qty: 90 RF: 1 Tresiba FlexTouch U-200 200 unit/mL (3 mL) insulin pen 46 unit SQ QPM Qty: 21 RF: 1 metoprolol succinate [Toprol XL] 25 mg tablet extended release 24 hr 25 mg PO DAILY Qty: 90 RF: 3 aspirin 325 mg tablet 325 mg PO HS RF: 0 (DME) lancets [Axion BioSystemsTouch Delica Plus Lancet] 33 gauge misc See Dose Instructions .ROUTE .MEDSUPPLY Qty: 100 RF: 0 (DME) blood-glucose meter [Axion BioSystemsTouch Ultra2 Meter] kit See Dose Instructions .ROUTE .MEDSUPPLY Qty: 1 RF: 0 (DME) pen needle, diabetic [BD Ultra-Fine Mini Pen Needle] 31 gauge x 3/16" needle See Dose Instructions .ROUTE .MEDSUPPLY Qty: 30 RF: 0 Trulicity 0.75 mg/0.5 mL pen injector 0.75 mg subcut ONCE Qty: 6 RF: 1 (DME) OneTouch Ultra Blue Test Strip Strip See Dose Instructions .ROUTE .MEDSUPPLY Qty: 200 RF: 3 atorvastatin 20 mg tablet 20 mg PO HS Qty: 90 RF: 3 metformin 1,000 mg tablet 1,000 mg PO BID RF: 0 Referrals Referrals: Kimo Lamar III, CRNP [Primary Care Provider] -
[2021-04-06] MEDS ORDERED: SODIUM CHLORIDE 0.9% 500 ML IV SCH (15:30)
--- NOTE | 2021-04-06 15:44 | XRay Report ---
XR chest 1V portable CLINICAL HISTORY: syncope COMPARISON STUDY: Chest radiograph February 22, 2019. FINDINGS: Lung volumes are normal. Lungs are clear. There is no pneumothorax. Cardiac size is stable. Mediastinal contours are normal. There is no evidence for pulmonary edema. Left shoulder arthroplast y is partially imaged. Postoperative findings within the right shoulder are incidentally noted as wel l. Several old left rib fractures are noted. There is a possible trace right pleural effusion. IMPRESSION: No acute cardiopulmonary findings. ACT 112: Negative or not required by law. Electronically signed by: Tip Liu M.D. 04/06/2021 3:42 PM
[2021-04-06 15:55] LABS: Basophils # (auto) 0.02 K/uL (0-0.2); Basophils % (auto) 0.4 %; Eosinophils # (auto) 0.14 K/uL (0-0.5); Eosinophils % (auto) 2.5 %; Hematocrit (blood only) 37.4 % (42-52); Hemoglobin 12.7 g/dL (14.0-18.0); Immature Granulocytes # (auto) 0.02 K/uL (0.00-0.02); Immature Granulocytes % (auto) 0.4 %; Lymphocytes # (auto) 1.64 K/uL (1.2-3.4); Lymphocytes % (auto) 29.7 %; Mean Corpuscular Hemoglobin 31.7 pg (25-34); Mean Corpuscular Volume 93.3 fL (80-100); Mean Platelet Volume 8.2 fL (7.4-10.4); Monocytes # (auto) 0.47 K/uL (0.11-0.59); Monocytes % (auto) 8.5 %; Neutrophils # (auto) 3.23 K/uL (1.4-6.5); Neutrophils % (auto) 58.5 %; Platelet Count 310 K/uL (130-400); RDW Standard Deviation 50.8 fL (36.4-46.3); Red Blood Count 4.01 M/uL (4.7-6.1); White Blood Count 5.52 K/uL (4.8-10.8)
[2021-04-06 15:57] LABS: Appearance Urine Clear (Clear); Bilirubin Urine Negative (Negative); Blood Urine Negative (Negative); Color Urine Yellow; Glucose Urine UA Trace (Negative); Ketones Urine Negative (Negative); Leukocyte Esterase Urine Negative (Negative); Nitrite Urine Negative (Negative); Protein Urine Negative (Negative); Specific Gravity Urine 1.007 (1.000-1.030); Urobilinogen Urine Negative (Negative)
[2021-04-06 16:06] LABS: Prothrombin Time 10.3 Seconds (9.0-12.0)
--- NOTE | 2021-04-06 16:06 | CT Scan Report ---
CT OF THE HEAD WITHOUT CONTRAST CLINICAL HISTORY: Syncope. COMPARISON STUDY: Head CT November 13, 2013. CT DOSE: 537.48 mGy.cm TECHNIQUE: Helical axial images of the head were obtained without IV contrast. Automated exposure con trol was utilized for the study. A dose lowering technique was utilized adhering to the principles o f ALARA. FINDINGS: No acute intracranial hemorrhage, midline shift or mass effect is present. The ventricular system is unremarkable. The basal cisterns are patent. No extra-axial collections are present. There are no findings to suggest acute dural sinus thrombosis or acute territorial infarct. No significant calvarial abnormalities are present. Visualized portions of the sinuses and mastoid air cells are migue ar. IMPRESSION: No acute intracranial findings. ACT 112: Negative or not required by law. Electronically signed by: Tip Liu M.D. 04/06/2021 4:04 PM
[2021-04-06 16:14] LABS: Alanine Aminotransferase 25 U/L (12-78); Albumin Level 3.7 gm/dl (3.4-5.0); Aspartate Aminotransferase 13 U/L (15-37); BUN Creatinine Ratio 14.2 (10-20); Blood Urea Nitrogen 21 mg/dl (7-18); Calcium 8.5 mg/dl (8.5-10.1); Carbon Dioxide 29 mmol/L (21-32); Chloride 109 mmol/L (98-107); Creatinine Clr Calc Pharmacy 41.8 ml/min; Est GFR (African American) 51.4 ml/min; Est GFR (Non-African American) 44.3 ml/min; Glucose 127 mg/dl (70-99); Potassium 4.1 mmol/L (3.5-5.1); Sodium 141 mmol/L (136-145)
[2021-04-06 16:19] LABS: Albumin Globulin Ratio 1.1 (0.9-2); Alkaline Phosphatase 107 U/L (45-117); Bilirubin,Total 0.5 mg/dl (0.2-1); Globulin 3.4 gm/dl (2.5-4.0); Total Protein 7.1 gm/dl (6.4-8.2); Troponin I < 0.015 ng/ml (0-0.045)
[2021-04-06 16:33] LABS: D Dimer 600 ug/L FEU (0-500)
[2021-04-06] MEDS ORDERED: OPTIRAY 320 125ml IV ONE (17:49)
--- NOTE | 2021-04-06 18:27 | CT Scan Report ---
CT ANGIOGRAPHY OF THE CHEST, PULMONARY EMBOLUS PROTOCOL CLINICAL HISTORY: Shortness of breath. Syncope. COMPARISON STUDY: Chest radiograph February 22, 2019 and April 06, 2021. TECHNIQUE: Following IV administration of 117 mL of Optiray, helical axial images of the chest were o btained utilizing the pulmonary embolus protocol. Maximal intensity projections and sagittal and cor onal reformats were viewed on an independent 3D workstation. IV contrast was administered without co mplication. Automated exposure control was utilized for the study. A dose lowering technique was ut ilized adhering to the principles of ALARA. CT DOSE: 392.55 mGy.cm FINDINGS: No pulmonary emboli are identified. There is no thoracic aortic dissection. Note is made o f moderate aortic valvular and supravalvular calcification. Caliber of the thoracic aorta is normal. There is moderate plaque of the descending thoracic aorta. There is moderate coronary artery calcific ation. No pericardial effusion is present. There is a small hiatal hernia. There is no thoracic lymph adenopathy. There is no consolidation to suggest pneumonia. No pneumothorax or pleural effusion is pr esent. No acute fracture or suspicious lesion is identified within visualized portions of the bony th orax. IMPRESSION: 1. No pulmonary emboli identified. 2. No acute process within the chest. 3. Mild to moderate aortic valvular/supravalvular calcification. Echocardiography could be performed if clinical suspicion for aortic stenosis. Normal caliber thoracic aorta. No thoracic aortic dissecti on. 4. Moderate coronary artery calcification. ACT 112: Negative or not required by law. Electronically signed by: Tpi Liu M.D. 04/06/2021 6:26 PM
--- NOTE | 2021-04-06 20:13 | History & Physical Report ---
Date of Service April 06, 2021 Assessment & Plan (1) Syncope and collapse: Plan: 80 yo M w/ pMHx. of CAD (100% RCA with collaterals), HTN, Hypercholesterolemia, BPH and IDDM (A1c 7.1 in November) who presents with 2 months of progressively worsening presyncopal and syncopal symptoms last episode this morning. Syncope/Presyncope potentially due to symptomatic bradycardia, currently HR 55 and asymptomatic vs. ischemia less likely with nl. troponin, lack of chest pain although symptoms are worse with activity vs. structural cardiac causes such as worsening valvular disease - admitted to a monitored floor - cardiology consulted for evaluation and if necessary pace maker placement - trend troponin Q6H - Metoprolol held - TTE ordered to evaluate for a structural cause of his syncope - lyme testing given bradycardia, heart block and potential for exposure IDDM - held oral agents - placed on SSI - 10U BID long acting insulin - consider increasing if poorly controlled HTN - holding Metoprolol due to bradycardia BPH - continue tamsulosin Hypercholesterolemia - continue Atorvastatin CAD w/ 100% RCA occlusion with collaterals - continue ASA - Metoprolol held currently due to bradycardia Tobacco use disorder w/ 73 years of tobacco use not interested in stopping currently - consider nicotine replacement if patient has cravings while hospitalized Code: DNR/DNI Diet: CC DM II, NPO at midnight DVT: SCD's (2) Diabetes mellitus: (3) Benign essential hypertension: (4) Coronary artery arteriosclerosis: (5) Benign localized hyperplasia of prostate with urinary obstruction: (6) Diastolic dysfunction: (7) Cor athrscl-uns vessel: History of Present Illness Chief Complaint: presyncope Primary Care Provider: Kimo Lamra, ZAHRA, NIK Alvarezale is a 80-year-old male who has a past medical history of CAD (100% RCA with collaterals), HTN, Hypercholesterolemia, BPH and IDDM (A1c 7.1 in November) who presents with 2 months of presyncopal and syncopal symptoms. He has never had anything like this before and the episodes are occurring daily and are getting progressively worse. His most recent episode was on 04/06 at 11AM. He does not have any warning prior to the episode. The episodes consist of lightheadedness, shortness of breath and disorientation. He does not have chest pain or palpitations with this. He notes that the episodes are occurring with activity and do not occur if he is at rest or lying down. He has noted that over the last couple days that he the episodes are lasting longer. They were lasting 30 minutes and now are lasting over the day. 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 He has not tried any medication for this. He mentions he had a cold a couple of days ago and he is not vaccinated against COVID. He is outside frequently hunting but has not been bitten by a tick that he is aware of. He has not had any rashes. Social Hx. - chewed tobacco for 73 years, no alcohol over the last several months, no recreational drug use. Allergies Allergy/AdvReac Type Severity Reaction Status Date / Time lisinopril AdvReac Mild Dizziness Verified 04/06/21 16:13 Home Medications Medication Instructions Recorded Confirmed Type albuterol sulfate 90 mcg/actuation 2 puffs INH QID PRN #8 gm 12/22/18 04/06/21 Rx aerosol inhaler (ProAir HFA) aspirin 325 mg tablet 325 mg PO HS tab 02/10/19 04/06/21 History blood-glucose meter (OneTouch #1 ea 03/29/19 02/28/21 History Ultra2 Meter) lancets 33 gauge (OneTouch Delica #100 ea 03/29/19 02/28/21 History Plus Lancet) pen needle, diabetic 31 gauge x #30 ea 03/29/19 02/28/21 History 3/16" (BD Ultra-Fine Mini Pen Needle) tamsulosin 0.4 mg capsule 0.4 mg PO DAILY #90 cap 11/07/20 04/06/21 Rx dulaglutide 0.75 mg/0.5 mL 0.75 mg SUBCUT ONCE #6 ml 11/12/20 04/06/21 Rx subcutaneous pen injector (Trulicity) insulin degludec 200 unit/mL (3 46 unit SQ QPM #21 ml 12/11/20 04/06/21 Rx mL) subcutaneous pen (Tresiba FlexTouch U-200 insulin) atorvastatin 20 mg tablet 20 mg PO HS #90 tab 12/24/20 04/06/21 Rx blood sugar diagnostic (OneTouch #200 ea 12/24/20 04/06/21 Rx Ultra Blue Test Strip) metoprolol succinate 25 mg 25 mg PO DAILY #90 tab 02/18/21 04/06/21 Rx tablet,extended release 24 hr (Toprol XL) metformin 1,000 mg tablet 1,000 mg PO BID 04/06/21 04/06/21 History Past Med/Surg History Medical History (Updated 04/07/21 @ 13:37 by Hadley Harrison MD) BPH (benign prostatic hyperplasia) Ch DVT/embl low ext NOS Coronary artery disease 100% RCA with collateralization per cardio Diabetes mellitus, type 2 IDDM Diverticulosis of colon Hyperlipidemia Obesity Osteoarthritis Uses inhaler device ? remote hx bronchitis with inhaler PRN; per patient, no recent inhaler use/need Surgical History History of cardiac cath 7 YEARS AGO History of colonoscopy History of repair of rotator cuff RT History of tonsillectomy History of tooth extraction Hx of vasectomy Status post total shoulder arthroplasty Left- done 03/25/[address] Bright Family History Father Heart murmur Acute myocardial infarction Cardiac disorder Myocardial infarction Denies family history of Ovarian cancer Prostate cancer Breast cancer Colorectal cancer Social History Smoking Status: Never smoker Tobacco Type: Cigarettes and Cigars Age Started Using Tobacco: 8; Age Quit Using Tobacco: 62; packs per day: 1; Years Smoked: 56; Second Hand Exposure: No; Do You Dip or Chew Tobacco: Yes; Hx Alcohol Use: Yes Alcohol type: beer Alcohol Intake Frequency: Monthly or Less Hx Substance Use: No Preferred Language: Surinamese Communication Ability: Effective Visual Impairment: No Limitations Hearing Ability: Normal Supervisor Customer Complaint Service Required: No Beliefs That Will Affect Care: None marital status: / Current Living Situation: Alone current occupational status: retired Other Information That Helps Us Care for You: No Feels Safe at Home: Yes Safety Concerns: Feels Safe At This Time Childhood Exposure to Second-Hand Smoke: Yes Dental Care, Regularly: No Physical Activity Frequency: Does not Exercise Seatbelt Use: sometimes Sunscreen Use: No Assistive Devices: Denture - Upper and Denture - Lower Review of Systems Review of Systems: Constitutional: denies fevers, chills, nausea, general weakness, diaphoresis, night sweats, weight loss Head: denies trauma, headaches, confusion, vision changes, admits lightheadedness Neuro: denies slurring speech, focal weakness, numbness, tingling ENT: denies rhinorrhea, stuffiness, sneezing, sore throat Cardiac: denies chest pain, palpitations, leg edema, orthopnea Pulm.: denies cough, hemoptysis admits shortness of breath with episodes, a small amount of brown sputum (associates to tobacco use) GI: denies diarrhea, constipation, blood in stool : denies urgency, pain, frequency Physical Exam Constitutional: WD/WN, vitals as above no acute distress Eyes: PERRL, conjunctivae normal, anicteric sclerae ENMT: external ear and nose normal, oropharynx normal Neck: normal visual inspection Respiratory: normal respiratory effort, lungs clear to auscultation Cardiovascular: Rate/Rhythm: regular rate Heart Sounds: + murmur Gastrointestinal (Abdomen): normal bowel sounds, soft, nontender, no hepatosplenomegaly Musculoskeletal: no cyanosis or clubbing, extremities motor strength 5/5 Skin: no rashes, warm and dry Neurologic: PERRL, EOMI, accommodation nl, no face palsy, no dysarthria Psychiatric: A+Ox3, euthymic affect Results & Data Results & Data ([facility]) Vital Signs (Past 12 Hours) Vital Signs Temp Pulse Pulse Resp BP BP Pulse Ox 04/06/21 18:18 36.7 C 55 L 17 165/71 H 97 04/06/21 16:49 36.7 C 147 H 16 147/79 H 97 04/06/21 15:42 36.8 C 652 H 53 L 18 139/77 98 04/06/21 15:15 36.6 C 61 18 121/70 97 CBC Results Results Complete Blood Count Results: RBC 3.96 M/uL (4.7-6.1) L 04/07/21 WBC 5.73 K/uL (4.8-10.8) 04/07/21 Hgb 12.3 g/dL (14.0-18.0) L 04/07/21 Hct 37.0 % (42-52) L 04/07/21 Plt Count 347 K/uL (130-400) 04/07/21 Chemistry (BMP) Results BMP Results: Sodium 141 mmol/L (136-145) 04/07/21 Potassium 4.5 mmol/L (3.5-5.1) 04/07/21 Chloride 110 mmol/L (98-107) H 04/07/21 BUN 20 mg/dl (7-18) H 04/07/21 Creatinine 1.27 mg/dl (0.6-1.4) 04/07/21 Glucose 140 mg/dl (70-99) H 04/07/21 Code Status & VTE Plan VTE Prophylaxis Plan VTE Prophylaxis will be ordered: Yes Supervising Physician Co-Signing Physician Notes Attending addendum: I have physically seen this patient, have supervised the medical residents activities, and agree with the H&P unless as otherwise noted. Assessment and Plan: Syncope and collapse- The patient will be admitted to telemetry for serial cardiac enzymes, serial EKG's, cardiac rhythm monitoring and a 2-D echocardiogram with Dopplers. Concern regarding potential symptomatic bradycardia hold metoprolol succinate Consult cardiology Diabetes mellitus- Holding oral agents Placed on Accu-Cheks before meals and at bedtime with NovoLog coverage per scale Reducing insulin degludec as noted Hypertension/CAD with 100% RCA occlusion with collaterals- Holding metoprolol as noted above due to bradycardia continue aspirin BPH- Continue tamsulosin Remaining orders and notations as noted Resident Activity Tracking Resident Involvement: Resident Care Provided Care Provided: Adult Hospital Medicine
[2021-04-06] MEDS ORDERED: CARBOHYDRATES FOR HYPOGLYCEMIA PO PRN (21:55)
[2021-04-06] MEDS ORDERED: GLUCOSE 10 TABS/TUBE PO PRN (21:55)
[2021-04-06] MEDS ORDERED: GLUCOSE 40% GEL 15 GM TUBE PO PRN (21:55)
[2021-04-06] MEDS ORDERED: DEXTROSE 50% 50 ML SYRINGE IV PRN (21:55)
[2021-04-06] MEDS ORDERED: GLUCAGON FOR INJ 1 MG VIAL SQ PRN (21:55)
[2021-04-06] MEDS ORDERED: POLYETHYLENE (MIRALAX) 17 GM PACK PO PRN (21:55)
[2021-04-06] MEDS ORDERED: ACETAMINOPHEN 325 MG TAB PO PRN (21:55)
[2021-04-06] MEDS ORDERED: ALBUTEROL HFA 8 GM INHALER INH PRN (21:59)
[2021-04-06] MEDS ORDERED: INSULIN ASPART 100 UNITS/ML 3 ML PEN SC SCH (22:30)
[2021-04-06 22:36] LABS: Lyme Ab IgG w/WB Rflx Negative (Negative); Lyme Ab IgM w/WB Rflx Negative (Negative)
[2021-04-06] MEDS: ASPIRIN 325 MG ECTAB PO SCH (22:38)
[2021-04-06] MEDS: ATORVASTATIN 20 MG TAB PO SCH (22:38)
[2021-04-06] MEDS: INSULIN GLARGINE SOLOSTAR 100 UNITS/ML 3 ML PEN SC SCH (22:40)
[2021-04-07] MEDS ORDERED: Nursing to Pharmacy Communication SCH ×2 (07:00→15:15)
[2021-04-07] MEDS: INSULIN ASPART 100 UNITS/ML 3 ML PEN SC SCH ×4 (07:13→21:53)
[2021-04-07] MEDS: TAMSULOSIN HCL 0.4 MG CAP PO SCH (08:29)
[2021-04-07] MEDS: INSULIN GLARGINE SOLOSTAR 100 UNITS/ML 3 ML PEN SC SCH ×2 (08:29→21:52)
[2021-04-07 08:30] LABS: Basophils # (auto) 0.02 K/uL (0-0.2); Basophils % (auto) 0.3 %; Eosinophils % (auto) 3.5 %; Hemoglobin 12.3 g/dL (14.0-18.0); Immature Granulocytes # (auto) 0.02 K/uL (0.00-0.02); Immature Granulocytes % (auto) 0.3 %; Lymphocytes # (auto) 1.52 K/uL (1.2-3.4); Lymphocytes % (auto) 26.5 %; Mean Corpuscular Hemoglobin 31.1 pg (25-34); Mean Corpuscular Hgb Conc 33.2 g/dL (32-36); Mean Corpuscular Volume 93.4 fL (80-100); Mean Platelet Volume 8.8 fL (7.4-10.4); Monocytes # (auto) 0.43 K/uL (0.11-0.59); Monocytes % (auto) 7.5 %; Neutrophils # (auto) 3.54 K/uL (1.4-6.5); Neutrophils % (auto) 61.9 %; Platelet Count 347 K/uL (130-400); RDW Standard Deviation 51.1 fL (36.4-46.3); Red Blood Count 3.96 M/uL (4.7-6.1); White Blood Count 5.73 K/uL (4.8-10.8)
[2021-04-07 08:52] LABS: BUN Creatinine Ratio 15.9 (10-20); Blood Urea Nitrogen 20 mg/dl (7-18); Calcium 8.6 mg/dl (8.5-10.1); Carbon Dioxide 25 mmol/L (21-32); Chloride 110 mmol/L (98-107); Creatinine Clr Calc Pharmacy 48.9 ml/min; Est GFR (African American) 62.3 ml/min; Est GFR (Non-African American) 53.8 ml/min; Glucose 140 mg/dl (70-99); Potassium 4.5 mmol/L (3.5-5.1); Sodium 141 mmol/L (136-145)
[2021-04-07 08:57] LABS: Troponin I < 0.015 ng/ml (0-0.045)
--- NOTE | 2021-04-07 09:16 | Hospitalist Progress Note ---
Date of Service April 07, 2021 Assessment & Plan (1) Syncope and collapse: Plan: 80 yo M w/ pMHx. of CAD (100% RCA with collaterals), HTN, HLD, IDDM (A1c 7.1 in November) admitted for chronic presyncope with multiple syncopal episodes 1) Chronic presyncope with syncopal episodes - Most likely cardiogenic given significant history of cardiac disease, persistent bradycardia with EKG demonstrating 1st degree heart block with bifascicular block - Echocardiogram ordered to evaluate for structural/valvular abnormality - Cardiology consulted to evaluate for potential pacemaker placement- recommended treadmill stress test tomorrow in AM to reproduce symptoms and obse rve for development of heart block/hypoxia. Bradyarrhythmia still possible, pt will likely receive pacemaker placement this hospitalization. - Serial troponins wnl, low suspicion for ischemic process - Home metoprolol held for bradyardia - Lyme testing negative 2) HTN - Holding metoprolol for bradycardia 3) CAD - Continue ASA - Low suspicion for acute coronary disease as etiology of syncope 4) IDDM - Novolog ISS - Lantus 10u BID 5) HLD - Continue atorvastatin 6) Tobacco use disorder - Former smoker, quit in 60s - Continuing to chew tobacco, currently in contemplative stage Code: DNR/DNI Diet: CC DM II DVT: SCD's (2) Diabetes mellitus: (3) Benign essential hypertension: (4) Coronary artery arteriosclerosis: (5) Benign localized hyperplasia of prostate with urinary obstruction: (6) Diastolic dysfunction: (7) Cor athrscl-uns vessel: Admission and Anticipated Discharge Date Admission Date: April 06, 2021 Supervising Physician Co-Signing Physician Notes I personally examined the patient and verified all lynn points of history and exam, discussed case, and agree with decision making with Dr Calvillo. Feeling okay, but notes that he is just lying in bed. Cardiology input greatly appreciated. Vitals noted, in general he is awake and alert pleasant no distress. HEENT normocephalic atraumatic mucous membranes moist. Breathing unlabored no accessory muscle use good effort. Skin shows no rashes no pallor or icterus. Neuro without focal deficits. Syncope/weakness/dizzinesshis symptoms, his recurrent syncopal events with very little to no prodrome, his bradycardia, and his bifascicular block all raise high concern for bradycardia arrhythmia/intermittent high-grade AV block as the cause of his symptoms. Appreciate cardiology inputagree with plan to try to reproduce symptoms or capture rhythm, anticipate eventually this will end with pacemaker placement once the etiology has been clearly identified. Otherwise as above. Subjective Pt denying any acute complaints, has not experienced similar presyncopal episodes since being hospitalized. Denying chest pain, SOB, lightheadedness on exam. Is aware he may need pacemaker placement. Review of Systems Constitutional: as per Subjective / HPI Physical Exam Constitutional: WD/WN, vitals as above no acute distress Neck: normal visual inspection Respiratory: normal respiratory effort, lungs clear to auscultation Cardiovascular: Rate/Rhythm: regular rhythm and + bradycardic Heart Sounds: normal S1, normal S2 and + murmur (low grade systolic over LUSB) Gastrointestinal (Abdomen): Percussion/Palpation: abdomen soft; abdomen nontender and no guarding Skin: no rashes, warm and dry Psychiatric: Orientation: alert Results & Data Results & Data ([facility]) Vital Signs (Past 12 Hours) Vital Signs Temp Pulse Pulse Resp BP Pulse Ox 04/07/21 08:20 36.8 C 52 L 16 162/73 H 97 04/07/21 05:17 36.4 C L 56 L 18 137/65 94 04/07/21 02:28 54 L 04/06/21 23:26 66 04/06/21 22:00 36.5 C 64 18 153/64 H 97 04/06/21 21:45 36.5 C 64 18 153/64 H 97 Resident Activity Tracking Resident Involvement: Resident Care Provided Care Provided: Adult Hospital Medicine
--- NOTE | 2021-04-07 12:54 | XCELERA ---
[id number] \\[id number]
--- NOTE | 2021-04-07 13:22 | Cardiology Consultation ---
Date of Consultation April 07, 2021 Assessment & Plan (1) Syncope and collapse: (2) Bifascicular bundle branch block: (3) Coronary artery arteriosclerosis: 1. Presyncope and syncope: From his description I can't tell for sure whether he actually loses consciousness or just has to stop due to "wooziness". The symptoms always occur with exercise, with his baseline conduction abnormalities (noted below) this is worrisome as it could be due to heart block. With walking in the hallway today I did not reproduce his symptoms but did not observe heart block. He has not clinically had any heart block on the monitor. There are 2 possible approaches, 1 would be to send him home with a monitor to see whether the symptoms are due to an arrhythmia the other is to try to reproduce them here. I am in favor of reproducing them here, although he tells me he can't walk on a treadmill because he loses his breath quickly I think it would be worthwhile to try a treadmill stress test to see if we can reproduce his symptoms. I would like to see if he develops heart block or hypoxia. I'm going to arrange that for tomorrow morning. If that fails I would probably recommend sending you home with some type of monitoring to try to identify his rhythm during the symptoms. I would keep him on the monitor to see if anything occurs spontaneously. 2. Bifascicular bundle branch block: This appears to be a new development based on his electrocardiogram and it certainly could be related to his symptoms. The time course might be about right and he may have transient higher degree AV block causing his symptoms. His Lyme screen was negative yesterday. It is not likely beta-blockade is doing it but he is now off of beta-blockade and he may need a pacemaker in this case. 3. Coronary disease: He does have coronary disease but this does not sound like an anginal equivalent although I suppose it is conceivable. It would probably be prudent to do his stress test as a stress echo although we may not get appropriate heart rate response but this should not be done as a pharmacologic stress test since we are trying to reproduce his symptoms. History of Present Illness Reason for Consultation: Presyncope and syncope Attending Physician: Elvin Maynard, History of Present Illness This is a 80-year-old male with a history of hypertension, hyperlipidemia, coronary artery disease including an occluded right coronary artery with collateralization. He also has moderate left ventricular hypertrophy and d iastolic dysfunction. He presented to the emergency room on April 06, 2021 with presyncopal and syncopal episodes. He describes to me progressive worsening of a symptom complex which starts with shortness of breath while he is active (his symptoms never occur at rest) and then proceed to lightheadedness and presyncope, I can't tell if he is truly lost consciousness. The symptoms can occur multiple times in a day, they're not associated with chest discomfort. He does not have palpitations. He is on metoprolol succinate 25 mg daily which has been held now. His presenting electrocardiogram showed sinus bradycardia 54 bpm with first- degree AV block (PA interval 256 ms) as well as bifascicular block with a right bundle branch block and left anterior fascicular block. A prior electroca rdiogram of February 22, 2019 showed sinus bradycardia at the same heart rate with first-degree AV block but no intraventricular conduction abnormalities. An echocardiogram done today shows normal left ventricular systolic function with borderline concentric left ventricular hypertrophy and no significant valvular abnormality. He does have mild aortic sclerosis without stenosis. Troponin x3 is normal. Telemetry monitoring demonstrates sinus rhythm with first-degree AV block but no higher degree AV block or bradycardia. Allergies Allergy/AdvReac Type Severity Reaction Status Date / Time lisinopril AdvReac Mild Dizziness Verified 04/06/21 16:13 Home Medications Medication Instructions Recorded Confirmed Type albuterol sulfate 90 mcg/actuation 2 puffs INH QID PRN #8 gm 12/22/18 04/06/21 Rx aerosol inhaler (ProAir HFA) aspirin 325 mg tablet 325 mg PO HS tab 02/10/19 04/06/21 History blood-glucose meter (OneTouch #1 ea 03/29/19 02/28/21 History Ultra2 Meter) lancets 33 gauge (OneTouch Delica #100 ea 03/29/19 02/28/21 History Plus Lancet) pen needle, diabetic 31 gauge x #30 ea 03/29/19 02/28/21 History 3/16" (BD Ultra-Fine Mini Pen Needle) tamsulosin 0.4 mg capsule 0.4 mg PO DAILY #90 cap 11/07/20 04/06/21 Rx dulaglutide 0.75 mg/0.5 mL 0.75 mg SUBCUT ONCE #6 ml 11/12/20 04/06/21 Rx subcutaneous pen injector (Trulicity) insulin degludec 200 unit/mL (3 46 unit SQ QPM #21 ml 12/11/20 04/06/21 Rx mL) subcutaneous pen (Tresiba FlexTouch U-200 insulin) atorvastatin 20 mg tablet 20 mg PO HS #90 tab 12/24/20 04/06/21 Rx blood sugar diagnostic (OneTouch #200 ea 12/24/20 04/06/21 Rx Ultra Blue Test Strip) metoprolol succinate 25 mg 25 mg PO DAILY #90 tab 02/18/21 04/06/21 Rx tablet,extended release 24 hr (Toprol XL) metformin 1,000 mg tablet 1,000 mg PO BID 04/06/21 04/06/21 History Patient History Medical History (Updated 04/07/21 @ 13:37 by Hadley Harrison MD) BPH (benign prostatic hyperplasia) Ch DVT/embl low ext NOS Coronary artery disease 100% RCA with collateralization per cardio Diabetes mellitus, type 2 IDDM Diverticulosis of colon Hyperlipidemia Obesity Osteoarthritis Uses inhaler device ? remote hx bronchitis with inhaler PRN; per patient, no recent inhaler use/need Surgical History History of cardiac cath 7 YEARS AGO History of colonoscopy History of repair of rotator cuff RT History of tonsillectomy History of tooth extraction Hx of vasectomy Status post total shoulder arthroplasty Left- done 03/25/[address] Bright Family History Father Heart murmur Acute myocardial infarction Cardiac disorder Myocardial infarction Denies family history of Ovarian cancer Prostate cancer Breast cancer Colorectal cancer Social History Smoking Status: Never smoker Tobacco Type: Cigarettes and Cigars Age Started Using Tobacco: 8; Age Quit Using Tobacco: 62; packs per day: 1; Years Smoked: 58; Second Hand Exposure: No; Do You Dip or Chew Tobacco: Yes; Hx Alcohol Use: Yes Alcohol type: beer Alcohol Intake Frequency: Monthly or Less Hx Substance Use: No Preferred Language: Lithuanian Communication Ability: Effective Visual Impairment: No Limitations Hearing Ability: Normal Chairman Emeritus Required: No Beliefs That Will Affect Care: None marital status: / Current Living Situation: Alone current occupational status: retired Other Information That Helps Us Care for You: No Feels Safe at Home: Yes Safety Concerns: Feels Safe At This Time Childhood Exposure to Second-Hand Smoke: Yes Dental Care, Regularly: No Physical Activity Frequency: Does not Exercise Seatbelt Use: sometimes Sunscreen Use: No Assistive Devices: Denture - Upper and Denture - Lower Review of Systems Review of Systems: All systems reviewed & are unremarkable except as noted in HPI & below Physical Exam Physical Exam: Constitutional: Alert, cooperative and in no distress. HEENT: Unremarkable Neck: No jugular venous distention, carotid pulses are normal and equal bilaterally without bruits. Pulmonary: Clear to auscultation bilaterally. Cardiac: Regular rhythm with no murmur, gallop or rub. Abdomen: Soft, nontender with normal bowel sounds. Extremities: No edema. Distal pulses intact. Neurologic: No focal findings. Gait is steady. Skin: No rash, ecchymoses or petechiae. Results & Data ([facility]) Vital Signs (Past 12 Hours) Vital Signs Temp Pulse Pulse Resp BP Pulse Ox 04/07/21 11:35 36.7 C 53 L 16 137/69 94 04/07/21 08:20 36.8 C 52 L 16 162/73 H 97 04/07/21 05:17 36.4 C L 56 L 18 137/65 94 04/07/21 02:28 54 L Laboratory Results Cardiac Enzymes 04/06/21 04/06/21 04/07/21 Range/Units 15:45 22:25 07:14 AST 13 L (15-37) U/L Troponin I < 0.015 < 0.015 < 0.015 (0-0.045) ng/ml Coagulation 04/06/21 Range/Units 15:45 PT 10.3 (9.0-12.0) Seconds CBC 04/06/21 04/07/21 Range/Units 15:45 07:14 WBC 5.52 5.73 (4.8-10.8) K/uL RBC 4.01 L 3.96 L (4.7-6.1) M/uL Hgb 12.7 L 12.3 L (14.0-18.0) g/dL Hct 37.4 L 37.0 L (42-52) % Plt Count 310 347 (130-400) K/uL Neut # (Auto) 3.23 3.54 (1.4-6.5) K/uL Lymph # (Auto) 1.64 1.52 (1.2-3.4) K/uL [place] # (Auto) 0.47 0.43 (0.11-0.59) K/uL Eos # (Auto) 0.14 0.20 (0-0.5) K/uL Baso # (Auto) 0.02 0.02 (0-0.2) K/uL Comprehensive Metabolic Panel 04/06/21 04/07/21 Range/Units 15:45 07:14 Sodium 141 141 (136-145) mmol/L Potassium 4.1 4.5 (3.5-5.1) mmol/L Chloride 109 H 110 H (98-107) mmol/L Carbon Dioxide 29 25 (21-32) mmol/L BUN 21 H 20 H (7-18) mg/dl Creatinine 1.49 H 1.27 (0.6-1.4) mg/dl Glucose 127 H 140 H (70-99) mg/dl Calcium 8.5 8.6 (8.5-10.1) mg/dl AST 13 L (15-37) U/L ALT 25 (12-78) U/L Alkaline Phosphatase 107 (45-117) U/L Total Protein 7.1 (6.4-8.2) gm/dl Albumin 3.7 (3.4-5.0) gm/dl Intake and Output 04/06/21 04/07/21 04/07/21 22:59 06:59 14:59 Intake Total 500 / 500 Output Total 500 / 500 Balance 500 / 0 -500 / 0 Intake: IV 500 / 500 Sodium Chloride 0.9% 500 ml @ 500 / 500 999 mls/hr IV .Q31M [facility] Rx#: [id number] Output: Urine 500 / 500 Other: Other Intake Source npo,sip, ice chips npo,ice chips, sips Weight 84.7 kg Weight Measurement Method Standing Scale Diagnostic Findings Telemetry: On telemetry his rhythm is sinus with first-degree AV block and no higher degree AV block. I had him walk around the hallway several times, initially on standing he felt "woozy" and seemed a little bit unsteady but had a steady pulse, we walked a round the hallway several times, his heart rate picked up appropriately and he had no AV block on telemetry but we did not reproduce his clinical symptoms. PG Care Time/CCT Total # of Minutes Spent Total Time Spent with Patient: Total time spent is greater than 50% in coordination of care (as documented) at patient's floor/unit and/or counseling patient: Coding Level of Care Code 21317 Initial Inpt Care Lvl 3 Diagnoses Syncope and collapse R55 Coronary artery arteriosclerosis I25.10 Bifascicular bundle branch block I45.2
--- NOTE | 2021-04-07 16:26 | Billing Data ---
Date of Service April 07, 2021 Coding Level of Care Code 35905 Subseq Hosp Care Lvl 2
--- NOTE | 2021-04-07 19:18 | Billing Data ---
Date of Service April 07, 2021 Coding Level of Care Code 74669 Initial Inpt Care Lvl 3
--- NOTE | 2021-04-07 20:23 | Electrocardiogram Report ---
Test Reason : Blood Pressure : / mmHG Vent. Rate : 054 BPM Atrial Rate : 054 BPM P-R Int : 256 ms QRS Dur : 140 ms QT Int : 456 ms P-R-T Axes : 023 -61 013 degrees QTc Int : 432 ms Poor data quality, interpretation may be adversely affected Sinus bradycardia with 1st degree A-V block Right bundle branch block Left anterior fascicular block Bifascicular block Abnormal ECG When compared with ECG of 22-FEB-2019 10:54, (RBBB and left anterior fascicular block) is now Present Confirmed by Hadley Harrison ([id number]) on 04/07/2021 8:23:08 PM Referred By: Confirmed By:Hadley Harrison
[2021-04-07] MEDS: ATORVASTATIN 20 MG TAB PO SCH (21:53)
[2021-04-07] MEDS: ASPIRIN 325 MG ECTAB PO SCH (21:53)
[2021-04-08 06:26] LABS: BUN Creatinine Ratio 15.9 (10-20); Calcium 8.5 mg/dl (8.5-10.1); Creatinine Clr Calc Pharmacy 46.4 ml/min; Est GFR (African American) 58.4 ml/min; Est GFR (Non-African American) 50.4 ml/min; Potassium 4.2 mmol/L (3.5-5.1)
--- NOTE | 2021-04-08 07:15 | Hospitalist Progress Note ---
Date of Service April 08, 2021 Assessment & Plan Admission and Anticipated Discharge Date Admission Date: April 06, 2021 Results & Data Results & Data ([facility]) Vital Signs (Past 12 Hours) Vital Signs Temp Pulse Pulse Resp BP Pulse Ox 04/08/21 03:00 36.4 C L 54 L 18 129/69 97 04/07/21 23:12 36.5 C 51 L 18 139/62 96 04/07/21 22:19 58 L Resident Activity Tracking Resident Involvement: Resident Care Provided Care Provided: Adult [facility] Medicine
[2021-04-08 07:31] LABS: Estimated Average Glucose 189 mg/dl; Hemoglobin A1C 8.2 % (4.5-5.6)
[2021-04-08] MEDS: INSULIN ASPART 100 UNITS/ML 3 ML PEN SC SCH ×2 (08:22→12:44)
[2021-04-08] MEDS: TAMSULOSIN HCL 0.4 MG CAP PO SCH (08:23)
[2021-04-08] MEDS: INSULIN GLARGINE SOLOSTAR 100 UNITS/ML 3 ML PEN SC SCH (08:23)
--- NOTE | 2021-04-08 09:24 | Cardiology Progress Note ---
Date of Service April 08, 2021 Assessment & Plan (1) Syncope and collapse: Plan: -No further episodes since hospital admission. -No ischemia on stress echocardiogram performed today. -clinical research monitor has been benign. -We will place a 30 day long-term event monitor. -Stable for hospital discharge. (2) Bifascicular bundle branch block: Plan: -Lyme titer negative. -clinical research monitor has been benign. -Thirty day event monitor as described above. (3) Coronary artery arteriosclerosis: Plan: -History of totally occluded RCA with good distal collateralization. -Undetectable troponin I level -No ischemia on stress echocardiogram today. -Would continue to hold metoprolol. (4) Benign essential hypertension: Plan: -With moderate LVH on echocardiogram. -Continue to hold metoprolol. -Consider addition of amlodipine if blood pressure elevated. Admission and Anticipated Discharge Date Admission Date: April 06, 2021 Subjective The patient is resting comfortably in bed without complaints of chest pain, dyspnea, syncope, or presyncope. Physical Exam Physical Exam: In general this is a well-developed well-nourished white male in no acute distress. HEENT exam is negative. Neck reveals normal carotid upstrokes without bruits. No jugular venous distention. There is no thyromegaly. Cardiovascular exam reveals a regular rhythm with a normal S1 and S2. No murmurs, S3, or S4 are noted. Lungs are clear without rales, rhonchi, or wheezes. Abdomen is soft without bruits. Extremities reveal intact radial artery and posterior tibial pulses bilaterally. There is no peripheral edema. Results & Data ([facility]) Vital Signs (Past 12 Hours) Vital Signs Temp Pulse Pulse Resp BP BP Pulse Ox 04/08/21 08:12 53 L 04/08/21 07:56 36.3 C L 50 L 18 144/66 H 97 04/08/21 03:00 36.4 C L 54 L 18 129/69 97 04/07/21 23:12 36.5 C 51 L 18 139/62 96 04/07/21 22:19 58 L Laboratory Results Troponin I level has been undetectable x3. Diagnostic Findings EKG notes sinus bradycardia with right bundle-branch block and left anterior hemiblock. clinical research monitor notes sinus bradycardia and sinus rhythm. No p auses or inappropriate bradycardias. PG Care Time/CCT Total # of Minutes Spent Total Time Spent with Patient: Total time spent is greater than 50% in coordination of care (as documented) at patient's floor/unit and/or counseling patient: Coding Level of Care Code 89869 Subseq Hosp Care Lvl 3 Diagnoses Syncope and collapse R55 Bifascicular bundle branch block I45.2 Coronary artery arteriosclerosis I25.10 Benign essential hypertension I10
--- NOTE | 2021-04-08 09:41 | XCELERA ---
[id number] \\[id number]
--- NOTE | 2021-04-08 14:45 | Discharge Summary ---
Date of Service April 08, 2021 Admission HPI Per Admitting Provider Ronn Lima is a 80-year-old male who has a past medical history of CAD (100% RCA with collaterals), HTN, Hypercholesterolemia, BPH and IDDM (A1c 7.1 in November) who presents with 2 months of presyncopal and syncopal symptoms. He has never had anything like this before and the episodes are occurring daily and are getting progressively worse. His most recent episode was on 04/06 at 11AM. He does not have any warning prior to the episode. The episodes consist of lightheadedness, shortness of breath and disorientation. He does not have chest pain or palpitations with this. He notes that the episodes are occurring with activity and do not occur if he is at rest or lying down. He has noted that over the last couple days that he the episodes are lasting longer. They were lasting 30 minutes and now are lasting over the day. He came to the ER today because a friend told him that he should get evaluated, he has not seen or discussed this with his PCP or box annealer. He has not tried any medication for this. He men tions he had a cold a couple of days ago and he is not vaccinated against COVID. He is outside frequently hunting but has not been bitten by a tick that he is aware of. He has not had any rashes. Social Hx. - chewed tobacco for 73 years, no alcohol over the last several months, no recreational drug use. Admission Exam Per Admitting Provider Constitutional: WD/WN, vitals as above no acute distress Eyes: PERRL, conjunctivae normal, anicteric sclerae ENMT: external ear and nose normal, oropharynx normal Neck: normal visual inspection Respiratory: normal respiratory effort, lungs clear to auscultation Cardiovascular: Rate/Rhythm: regular rate Heart Sounds: + murmur Gastrointestinal (Abdomen): normal bowel sounds, soft, nontender, no hepatosplenomegaly Musculoskeletal: no cyanosis or clubbing, extremities motor strength 5/5 Skin: no rashes, warm and dry Neurologic: PERRL, EOMI, accommodation nl, no face palsy, no dysarthria Psychiatric: A+Ox3, euthymic affect Principal Diagnosis Syncope Discharge Exam General: Well appearing, age appropriate Heart: RRR, +S1 S2, no murmurs/gallops/rubs Lungs: cta b/l, no wheezes/rales/rhonchi Abd: soft, NT/ND, +BS Extremities: no swelling, no rashes Discharge Data Allergies Allergy/AdvReac Type Severity Reaction Status Date / Time lisinopril AdvReac Mild Dizziness Verified 04/06/21 16:13 Consultations 04/06/21 20:34 ED Decision to Admit Stat 04/06/21 21:55 Consult Cardiology Routine Ordered Studies 04/06/21 15:25 CT head/brain wo con Stat 04/06/21 17:41 CT angio chest PE protocol Stat Hospital Course (1) Syncope and collapse: 80 yo M w/ pMHx. of CAD (100% RCA with collaterals), HTN, HLD, IDDM (A1c 7.1 in November) admitted for chronic presyncope with multiple syncopal episodes 1) presyncope with syncopal episodes Most likely cardiogenic given significant history of cardiac disease, persistent bradycardia with EKG demonstrating 1st degree heart block with bifascicular block. Serial troponins negative. Lyme negative. Echocardiogram 04/07 demonstrated EF 55-60% borderline concentric LVH and mild tricuspid regurge. Cardiology consulted, recommended stress echo performed 04/08, patient tolerated 2.14min exercise, negative stress test. Cardiology recommends 30 day event monitor, stopping metoprolol, and starting amlodipine for his HTN. Patient will be sent home with cardiac event monitor, metoprolol discontinued, start amlodipine 5mg daily. He is to follow up with his PCP and his box annealer. 2) HTN Stopped metoprolol, start amlodipine 5mg daily 3) CAD Low suspicion for acute coronary disease as etiology of syncope. Continue aspirin. 4) IDDM Continue home insulin 5) HLD Continue atorvastatin 6) Tobacco use disorder Former smoker, quit in 60s.Continuing to chew tobacco, currently in contemplative stage (2) Diabetes mellitus: (3) Benign essential hypertension: (4) Coronary artery arteriosclerosis: (5) Benign localized hyperplasia of prostate with urinary obstruction: (6) Diastolic dysfunction: (7) Cor athrscl-uns vessel: Total Time Total Time Spent Total Time Spent (In Minutes): see attending attestation Discharge Plan Discharge Items Patient Disposition: Home - Self-Care Reason For Visit: SYNCOPE Discharge Diagnosis: Syncope Activity: Resume your previous activity Non-emergency contact: Primary Care Provider Call non-emergency contact if: your symptoms worsen and you have a fever Follow-up/Referrals: Kimo Lamar III, CRNP [Primary Care Provider] - 04/17/21 9:20 am Diet: Regular Addtl Attending Provider Instructions: You were admitted to the hospital for syncope, otherwise known as fainting. You were evaluated for possible cardiac related causes of syncope. When we imaged your heart we found that it is still pumping normally, there is no evidence of a previous heart attack, and it continues to pump normally even while you are exercising. We think your syncope may be caused by an arrythmia, or unusual heart rhythm, that happens occasionally and has not occured while you were in the hospital. Therefore we are sending you home with a heart monitor for 30 days to see if we can catch any unusual heart rhythms you may have at home, to better evualuate your condition. We will replace one of your hypertension medications called Metoprolol with Amlodipine, as it is less likely to worsen your syncope. A discharge summary will be sent to your primary care physician to ensure continuity of care. Please bring this discharge summary with you to your next office appointment so that your provider can review it at that time. Follow-up appointments: Make a follow-up appointment with your PCP within the next week. It is very important that you follow up with them shortly after discharge from the hospital. Make a follow-up appointment with your box annealer. It is very important that you follow up with them after discharge from the hospital. Keep all your follow-up appointments as already scheduled. If you cannot make an appointment, notify your provider. Medications: Your medication list has been reviewed and reconciled upon discharge to ensure accuracy and continuity of care. An updated list of all your medications is included with your hospital discharge paperwork. Please review this list closely, and make note of any changes. * We sent a new medication called Amlodipine to your pharmacy. Take Amlodipine 5mg one tablet daily. * We have discontinued your medication called Metoprolol. Take your medications as instructed; do not skip a dose of your medicines. Make sure all of your doctors know every medicine you are taking (including tswv-krm-psxnhzl medicines, vitamins, and supplements). Call your primary care provider before taking any new medicines (including pcts-fak-kghptir medicines, vitamins, and supplements), because some of these may interact with your current medications, or may make your symptoms worse. Tell your primary care provider if you cannot afford your medications. CONTACT YOUR PRIMARY CARE PROVIDER if you experience any of the following: Chest pain, shortness of breath Fainting at rest Difficulty following your treatment plan, or difficulty taking medications CALL 911 OR GO TO THE EMERGENCY DEPARTMENT if you experience any of the following: Sudden, severe abdominal pain or nausea/vomiting Severe chest pain, or chest pain that radiates (moves) to your jaw or arm Sudden, severe shortness of breath or difficulty breathing Thank you for allowing us to participate in your care. Pending Studies at Discharge: No Stand-Alone Forms: [facility], Smoking Cessation Medications and DC Order Prescriptions: New amlodipine 5 mg tablet 5 mg PO DAILY 30 Days Qty: 30 RF: 0 Continued albuterol sulfate [ProAir HFA] 90 mcg/actuation HFA aerosol inhaler 2 puffs INH QID PRN (Reason: shortness of breath or wheezing) Qty: 8 RF: 0 tamsulosin 0.4 mg capsule 0.4 mg PO DAILY Qty: 90 RF: 1 Tresiba FlexTouch U-200 200 unit/mL (3 mL) insulin pen 46 unit SQ QPM Qty: 21 RF: 1 aspirin 325 mg tablet 325 mg PO HS RF: 0 (DME) lancets [OneTouch Delica Plus Lancet] 33 gauge misc See Dose Instructions .ROUTE .MEDSUPPLY Qty: 100 RF: 0 (DME) blood-glucose meter [BlizuuTouch Ultra2 Meter] kit See Dose Instructions .ROUTE .MEDSUPPLY Qty: 1 RF: 0 (DME) pen needle, diabetic [BD Ultra-Fine Mini Pen Needle] 31 gauge x 3/16" needle See Dose Instructions .ROUTE .MEDSUPPLY Qty: 30 RF: 0 Trulicity 0.75 mg/0.5 mL pen injector 0.75 mg subcut ONCE Qty: 6 RF: 1 atorvastatin 20 mg tablet 20 mg PO HS Qty: 90 RF: 3 metformin 1,000 mg tablet 1,000 mg PO BID RF: 0 Discontinued metoprolol succinate [Toprol XL] 25 mg tablet extended release 24 hr 25 mg PO DAILY Qty: 90 RF: 3 No Action (DME) OneTouch Ultra Blue Test Strip Strip See Dose Instructions .ROUTE .MEDSUPPLY Qty: 200 RF: 3 Discharge Orders: Discharge Order (Routine); Ordered 04/08/21 Ordered By: Robina Stokes/Other Patient Handouts: A1C, Managing Type 2 Diabetes Admission Data Admit Date/Time: 04/06/21 20:33 Attending Provider: Roxie Pope Admit Provider: Dawood Lynn Primary Care Provider: Kimo Lamar III Other Providers: Robin Park ; Hadley Harrison Other Interventions: Discharge Summary Assessment (RN) Last Done: 04/08/21 14:55 Supervising Physician Co-Signing Physician Notes Resident Physician Supervision Note: I independently interviewed and examined the patient and verified the lynn history and physical, reviewed labs and image studies and agree with resident Dr. Pedraza findings and care plan. Resident Activity Tracking Resident Involvement: Resident Care Provided Care Provided: Adult Hospital Medicine
== END 2021-04-08 14:57 | disposition home or self-care (01) | DRG 310 ==
LOC: ED 15:04 → INTOOBSV 20:33 → 2N 20:33 → SUATTDRO 20:33 → 2N 21:29
DX: E66.9 Obesity, unspecified; R00.1 Bradycardia, unspecified; N40.1 Benign prostatic hyperplasia with lower urinary tract symptoms; Z79.899 Other long term (current) drug therapy; Z86.718 Personal history of other venous thrombosis and embolism; I25.10 Atherosclerotic heart disease of native coronary artery without angina pectoris; I44.0 Atrioventricular block, first degree; M19.90 Unspecified osteoarthritis, unspecified site; Z68.28 Body mass index [BMI] 28.0-28.9, adult; I45.2 Bifascicular block; E78.00 Pure hypercholesterolemia, unspecified; Z87.891 Personal history of nicotine dependence; Z79.82 Long term (current) use of aspirin; E11.9 Type 2 diabetes mellitus without complications; I10 Essential (primary) hypertension; Z20.822 Contact with and (suspected) exposure to COVID-19; Z88.8 Allergy status to other drugs, medicaments and biological substances; Z79.4 Long term (current) use of insulin; R55 Syncope and collapse; Z82.49 Family history of ischemic heart disease and other diseases of the circulatory system

== ENCOUNTER 2025-01-30 14:04 | Inpatient (IN) ==
--- NOTE | 2025-01-30 15:20 | Electrocardiogram Report ---
Test Reason : Blood Pressure : */* mmHG Vent. Rate : 57 BPM Atrial Rate : 57 BPM P-R Int : 246 ms QRS Dur : 146 ms QT Int : 466 ms P-R-T Axes : 33 -67 -36 degrees QTcB Int : 453 ms Sinus bradycardia with 1st degree A-V block Right bundle branch block Left anterior fascicular block Bifascicular block Minimal voltage criteria for LVH, may be normal variant ( R in aVL ) T wave abnormality, consider lateral ischemia Abnormal ECG When compared with ECG of 06-Apr-2021 15:31, T wave inversion more evident in Inferior leads T wave inversion now evident in Anterolateral leads Confirmed by Ezra Rodriges ([id number]) on 01/30/2025 3:20:11 PM Referred By: Confirmed By: Ezra Rodriges
--- NOTE | 2025-01-30 15:31 | XRay Report ---
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 Heart size and pulmonary vasculature are normal. No consolidation or p leural effusion. No pneumothorax. IMPRESSION: No acute findings. ACT 112: Negative or not required by law. Electronically signed by: Camilo Otero M.D. 01/30/2025 3:29 PM
[2025-01-30 15:32] LABS: Hematocrit (blood only) 35.9 % (42.0-52.0); Hemoglobin 12.1 g/dl (14.0-18.0); Immature Granulocytes # (auto) 0.04 K/uL (0.01-0.20); Immature Granulocytes % (auto) 0.7 %; Mean Corpuscular Hemoglobin 30.3 pg (25.0-34.0); Mean Corpuscular Volume 90.0 fL (80.0-100.0); Platelet Count 277 K/uL (130-400); RDW Standard Deviation 46.9 fL (36.4-46.3); Red Blood Count 3.99 M/uL (4.70-6.10); White Blood Count 5.94 K/ul (4.8-10.8)
[2025-01-30 15:47] LABS: Alanine Aminotransferase 19.0 U/L (7-52); Albumin Globulin Ratio 1.3 (0.9-2); Alkaline Phosphatase 93.0 U/L (34-104); Anion Gap 7.0 (3-11); Bilirubin,Total 0.6 mg/dl (0.2-1.0); Blood Urea Nitrogen 34.0 mg/dl (6-23); Calcium 8.7 mg/dl (8.6-10.3); Carbon Dioxide 31.0 mmol/L (21-32); Chloride 102.0 mmol/L (98-107); Creatinine Clr Calc Pharmacy 35.2 ml/min; Globulin 3.2 gm/dl (2.5-4.0); Glucose 175.0 mg/dl (70-99(Fasting)); Potassium 4.0 mmol/L (3.5-5.1); Sodium 140.0 mmol/L (136-145); Total Protein 7.4 gm/dl (6.0-8.3)
[2025-01-30 16:07] LABS: INR 1.0 (0.9-1.1); Partial Thromboplastin Time 24 Seconds (21-31); Prothrombin Time 10.7 Seconds (9.0-12.0)
--- NOTE | 2025-01-30 16:21 | Emergency Department Note ---
Impression & Plan Syncope and collapse, CKD (chronic kidney disease), Atrioventricular block, first degree, Bradycardia ED Provider Note NAME: NANCY MAGUIRE AGE: 84 SEX: M : 1940 ARRIVES VIA: Walk-In INFORMANT: Patient, friend ED PROVIDER(S): Jovany Wyatt DO CHIEF COMPLAINT: syncope HPI: This is a 84-year-old male with the PMHx of CAD s/p CABG at [facility] Feb 2024, HTN, HLD, LVH, and DM presenting to [facility] for further evaluation of syncopal episodes. Patient is accompanied by friend who provide additional history. They report ongoing issues with lightheadedness and syncopal episodes. Patient states this did happen prior to his CABG but now is happening again. He states that they were out picking up a motor today when he was talking with his friend. He states next thing that he knew he was on the ground. The friend witnessed this. May have lost consciousness for a few seconds. Landed on his butt and back. Did not strike his head. [place] lightheaded and warm prior to falling. Has been compliant with his medications. They deny fever or chills. No cough or congestion. Denies chest pain or palpitations. No shortness of breath. They deny abdominal pain, nausea and vomiting. No urinary complaints. No recent changes in bowel movements. Patient denies recent changes in medications or OTC supplements. Patient offers no other complaints, today. ADDITIONAL HISTORY OBTAINED: Per HPI Chronic Medical/Social Conditions Affecting Care: Per HPI PAST MEDICAL HISTORY: See Below PAST SURGICAL HISTORY: See Below FAMILY HISTORY: See Below SOCIAL HISTORY: See Below HOME MEDICATIONS: See Below ALLERGIES: See Below VITALS: See Below PHYSICAL EXAMINATION: GENERAL: Sitting up in bed, alert, well appearing, well nourished, no distress, non-toxic EYE EXAM: normal conjunctiva. PERRL and EOM's grossly intact. OROPHARYNX: no exudate, no erythema, lips, buccal mucosa, and tongue normal and mucous membranes are moist NECK: supple, no nuchal rigidity, no adenopathy, non-tender LUNGS: Clear to auscultation. Normal chest wall mechanics HEART: no murmurs, regular rate, regular rhythm ABDOMEN: abdomen soft, non-tender, normo-active bowel sounds, no masses, no rebound or guarding. BACK: Back is symmetrical on inspection and there is no deformity, no midline tenderness, no CVA tenderness. SKIN: no rashes and no bruising UPPER EXTREMITIES: upper extremities are grossly normal. there is a single small skin abrasion/tear over the right mid forearm LOWER EXTREMITIES: No pitting edema. NEURO EXAM: Normal sensorium, cranial nerves II-XII grossly intact, normal speech, no gross weakness of arms, no gross weakness of legs. No drift. Finger to nose intact. Gross sensation intact. MEDICAL DECISION MAKING: Differential diagnoses includes but not limited to ACS, dysrhythmia, cardiac syncope, vasovagal episode, orthostasis, intracranial hemorrhage, CVA, traumatic injuries In summary, this is a 84 year old male who presented with syncope. Differential as above. Nursing notes and pertinent past medical records reviewed. Vital signs reviewed and the patient is bradycardic but otherwise hemodynamically stable. History and presentation revealed ongoing issues of lightheadedness and syncopal episodes. Could be related to heat and mild dehydration but given his extensive past medical history including cardiac disease, my primary concern is for cardiac syncope. While the patient did fall, he does not believe he has any significant trauma. Physical examination revealed as above. As a result of my initial evaluation, we will plan for labs as well as troponin levels. Plan for EKG and chest x-ray. Given the patient's significant comorbidities and cardiac history, the patient will require admission for high risk syncope. He will require telemetry and close monitoring. Diagnostics interpreted by me include EKG and cardiac monitoring as listed below: -Cardiac Monitoring: An order was placed for continuous cardiac monitoring. The monitor shows a rate of 55-70 with regular rhythm. -ECG: EKG independently interpreted by me reveals sinus bradycardia at a rate of 57 bpm. There is a new first-degree AV block. There is a bifascicular block present. There are global T wave inversions throughout the precordial leads as well as lateral leads. Patient completed laboratory studies and imaging. Results independently interpreted by me are worsening kidney function. Patient does have mild anemia that is improved from prior. No significant leukocytosis. No electrolyte derangements. In summary, this is a 84yoM PMHx CAD s/p CABG Feb 2024, HTN, HLD, minimal valvular disease presenting for sudden fall today. Slightly antonia and hypertensive but otherwise stable. Unclear if he passed out. GCS 15, no deficits. Skin tear to the RUE. Does not appear in heart failure. No lab findings to suggest cause of syncope. EKG showed some worsening T wave inversions, mostly lateral, compared to prior. Last TTE looks to be in 2023. I did [place] text Dr. Rodriges who is covering for [facility] cardiology group. The patient follows with Dr. Rodriges as well. He is agreeable for plan of admission with telemetry and repeat TTE. He did recommend that the patient is discharged on likely longer-term monitoring. Patient was discussed with the hospitalist team for admission and they accepted. Consults/Care Managements Discussions: Per MDM ER treatment provided: See above Procedures:none Critical Care: None The chart was completed utilizing [employer] Speech voice recognition software. Grammatical errors, random word insertions, pronoun errors, and incomplete sentences are an occasional consequence of this system due to software limitations, ambient noise, and hardware issues. Any formal questions or concerns about the content, text, or information contained within the body of this dictation should be directly addressed to the physician for clarification. Past Med/Surg History Problem List (Updated 01/30/25 @ 23:08 by Jovany Wyatt DO) Bradycardia (Acute) Atrioventricular block, first degree (Acute) CKD (chronic kidney disease) (Acute) Syncope and collapse (Acute) 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) Dysmetabolic syndrome X (Chronic) LVH (left ventricular hypertrophy) (Chronic) Benign localized hyperplasia of prostate with urinary obstruction (Chronic) Coronary artery arteriosclerosis (Chronic) Hypercholesterolemia (Chronic) Benign essential hypertension (Chronic) Microalbuminuria (Chronic) Osteoarthritis of left shoulder (Chronic) Diabetes mellitus (Chronic) Medical History (Updated 01/30/25 @ 23:08 by Jovany Wyatt DO) Multi-vessel coronary artery stenosis Hypertension Bifascicular bundle branch block Diastolic dysfunction Murmur Obesity Osteoarthritis BPH (benign prostatic hyperplasia) Diabetes mellitus, type 2 IDDM Coronary artery disease 100% RCA with collateralization per cardio Hyperlipidemia Ch DVT/embl low ext NOS Diverticulosis of colon Surgical History (Updated 03/17/24 @ 10:02 by Kimo Lamar III, NIK) Status post total shoulder arthroplasty Left- done 03/25/[address] Bright History of repair of rotator cuff RT Hx of vasectomy History of colonoscopy History of tooth extraction History of tonsillectomy History of cardiac cath 7 YEARS AGO Family History Father Heart murmur Acute myocardial infarction Cardiac disorder Myocardial infarction Denies family history of Ovarian cancer Prostate cancer Breast cancer Colorectal cancer Social History Smoking Status: Former smoker Tobacco Type: Cigarettes Age Started Using Tobacco: 8; Age Quit Using Tobacco: 62; packs per day: 1; Second Hand Exposure: No; Do You Dip or Chew Tobacco: No; Hx Alcohol Use: No Hx Substance Use: No Preferred Language: Faroese Communication Ability: Effective Visual Impairment: No Limitations Hearing Ability: Normal 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 Beliefs That Will Affect Care: None marital status: / Current Living Situation: Alone current occupational status: retired How many Children do You have: 2 Feels Safe at Home: Yes Childhood Exposure to Second-Hand Smoke: Yes Diet: regular caffeine: Yes during the past year weight has: remained stable Dental Care, Regularly: No Physical Activity Frequency: Does not Exercise Seatbelt Use: never Sunscreen Use: No Assistive Devices: Denture - Upper and Denture - Lower Allergies Allergies Allergy/AdvReac Type Severity Reaction Status Date / Time lisinopril AdvReac Mild Dizziness Verified 01/30/25 16:38 Home Meds Home Medications Medication Instructions Recorded Confirmed aspirin 325 mg tablet 325 mg PO HS 02/10/19 01/30/25 melatonin 5 mg capsule 5 mg PO PM 03/17/24 01/30/25 Previous Rx's Medication Instructions Recorded blood-glucose meter ([place]own AppTouch #1 ea 11/20/22 Ultra2 Meter) lancets 33 gauge (OneTouch Delica #200 ea 11/20/22 Plus Lancet) insulin degludec 200 unit/mL (3 40 - 50 unit (0.2 - 0.25 mL) 12/28/23 mL) subcutaneous pen (Tresiba subcut BID #45 mL FlexTouch U-200 insulin) atorvastatin 20 mg tablet 20 mg PO HS #90 tabs 03/16/24 tamsulosin 0.4 mg capsule 0.4 mg PO DAILY #90 caps 12/15/24 blood sugar diagnostic (OneTouch #200 strips 01/05/25 Ultra Test strips) furosemide 40 mg tablet 20 mg (1/2 x 40 mg) PO DAILY #90 01/24/25 tabs Results & Data (ED) Vital Signs Vital Signs - 24 hr 01/30/25 14:12 01/30/25 15:24 01/30/25 15:24 Temperature 36.5 C Temperature Source Temporal Artery Scan Pulse Rate 70 Pulse Rate [Apical] 59 L Respiratory Rate 16 17 Respiratory Effort / Characteristics Non-Labored Spontaneous Non-Labored Spontaneous Respiratory Depth Normal Normal Respiratory Pattern Regular Blood Pressure 121/64 Blood Pressure [Right Arm] 152/68 H Blood Pressure Mean 83 Blood Pressure Mean [Right Arm] 96 Pulse Oximetry 98 96 96 Oxygen Delivery Method Room Air Room Air Room Air Sepsis Recent Fever Within 48 Hours No Sepsis New/Unexplained Change in Mental Status No Sepsis Action Taken by Nursing No Action Required 01/30/25 16:00 01/30/25 17:00 Temperature Temperature Source Pulse Rate 54 L 55 L Pulse Rate [Apical] Respiratory Rate 19 Respiratory Effort / Characteristics Respiratory Depth Respiratory Pattern Blood Pressure 151/109 H Blood Pressure [Right Arm] Blood Pressure Mean 117 Blood Pressure Mean [Right Arm] Pulse Oximetry 95 Oxygen Delivery Method Room Air Sepsis Recent Fever Within 48 Hours Sepsis New/Unexplained Change in Mental Status Sepsis Action Taken by Nursing Laboratory Data 01/30/25 15:13 01/30/25 15:13 Lab Results 01/30/25 Range/Units 15:13 WBC 5.94 (4.8-10.8) K/ul RBC 3.99 L (4.70-6.10) M/uL Hgb 12.1 L (14.0-18.0) g/dl Hct 35.9 L (42.0-52.0) % MCV 90.0 (80.0-100.0) fL MCH 30.3 (25.0-34.0) pg MCHC 33.7 (32.0-36.0) g/dL RDW Std Deviation 46.9 H (36.4-46.3) fL RDW Coeff of Karin 14.5 (11.5-14.5) % Plt Count 277 (130-400) K/uL MPV 8.3 L (9.4-12.4) fL Immature Gran % (Auto) 0.7 % Neut % (Auto) 56.4 % Lymph % (Auto) 32.0 % [place]quois % (Auto) 7.4 % Eos % (Auto) 3.2 % Baso % (Auto) 0.3 % Neut # (Auto) 3.35 (1.40-6.50) K/uL Lymph # (Auto) 1.90 (1.20-3.40) K/uL [place]quois # (Auto) 0.44 (0.11-0.59) K/uL Eos # (Auto) 0.19 (0.00-0.50) K/uL Baso # (Auto) 0.02 (0.00-0.20) K/uL Immature Gran # (Auto) 0.04 (0.01-0.20) K/uL PT 10.7 (9.0-12.0) Seconds INR 1.0 (0.9-1.1) APTT 24 (21-31) Seconds PTT Ratio 0.9 Sodium 140 (136-145) mmol/L Potassium 4.0 (3.5-5.1) mmol/L Chloride 102 (98-107) mmol/L Carbon Dioxide 31 (21-32) mmol/L Anion Gap 7 (3-11) BUN 34 H (6-23) mg/dl Creatinine 1.67 H (0.6-1.4) mg/dl Est Cr Clr Drug Dosing 35.2 ml/min eGFR 40.61 BUN/Creatinine Ratio 20.4 H (10-20) Glucose 175 H (70-99(Fasting)) mg/dl Calcium 8.7 (8.6-10.3) mg/dl Total Bilirubin 0.6 (0.2-1.0) mg/dl AST 16 (13-39) U/L ALT 19 (7-52) U/L Alkaline Phosphatase 93 (34-104) U/L Troponin I High Sens 7.0 (0-20) pg/ml B-Natriuretic Peptide 50 (0-100) pg/ml Total Protein 7.4 (6.0-8.3) gm/dl Albumin 4.2 (3.4-5.0) gm/dl Globulin 3.2 (2.5-4.0) gm/dl Albumin/Globulin Ratio 1.3 (0.9-2) Administered Medications Aspirin (Aspirin 325 Mg Ectab) 325 mg PO HS STARLA Stop: 03/01/25 20:59 Last Admin: 01/30/25 21:33 Dose: 325 mg Documented By: LEWK Atorvastatin Calcium (Atorvastatin 20 Mg Tab) 20 mg PO HS STARLA Stop: 03/01/25 20:59 Last Admin: 01/30/25 21:33 Dose: 20 mg Documented By: EFK Lactated Ringer's (Lr) 1,000 mls @ 125 mls/hr IV .Q8H STARLA Stop: 02/02/25 20:55 Last Admin: 01/30/25 21:33 Dose: 125 mls/hr Documented By: EFK Insulin Aspart (Insulin Aspart Per Unit Charge) 0 units SC ACHS STARLA Stop: 03/01/25 20:59 Last Admin: 01/30/25 21:13 Dose: Not Given Documented By: EFK Imaging Data Radiologist's Impression: Chest X-Ray 01/30/25 14:17 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 Heart size and pulmonary vasculature are normal. No consolidation or pleural effusion. No pneumothorax. IMPRESSION: No acute findings. ACT 112: Negative or not required by law. Electronically signed by: Camilo Otero M.D. 01/30/2025 3:29 PM Discharge Plan Visit Data Chief Complaint: Syncope Stated Complaint: PASSING OUT 1X TODAY, 1X LAST EVENING ED Provider: Jovany Wyatt Discharge Problem: Syncope and collapse, CKD (chronic kidney disease), Atrioventricular block, first degree, Bradycardia Patient Disposition: Admitted As Inpatient Condition: Fair Discharge Instructions Interventions: ED Discharge Assessment Last Done: 01/30/25 19:45
--- NOTE | 2025-01-30 17:26 | History & Physical Report ---
Date of Service January 30, 2025 Assessment & Plan (1) Syncope and collapse: (2) Diabetes mellitus: (3) S/P coronary artery bypass graft x 4: (4) Benign essential hypertension: Plan Ronn is an 84yo M with PMH significant for CAD s/p CABG, HLD, HTN, DM2, COPD, OA, and BPH who presents to the hospital after multiple syncopal episodes. Syncope - Pt w/ lightheadedness > 1 year. Had falls w/ loss of consciousness prior to CABG but not since. Sx and falls have become more frequent recently. One yesterday and one today - abrasion on arm, no head hit, did have prodrome, no postictal state or LOC - Orthostatic vitals taken at PCP office showed 136/72 when lying down, 132/78 after sitting up, and 118/46 when standing - ED workup showed: Abnormal EKG w/ first-degree block, RBBB, and L anterior fascicular block. CXR normal. Labs notable for normal cardiac enzymes - Etiology hypovolemia vs symptomatic bradycardia. Worsening of pt's sx does coincide with hotter weather; suspect combination of heat, inadequate hydration, and ongoing orthostatic hypotension underlies frequent falls - Will start mIVF with LR. Also encourage po intake w/ regular diet - Lasix recently decreased from 40mg to 20mg daily; will hold for now, consider need to resume prior to discharge - Will obtain TTE to eval EF and worsening murmur - No cardiology consult at this time; will consider if sx persist despite volume repletion and seem more cardiogenic CAD s/p CABG - 4-vessel CABG in February 2024 at [facility] - EKG stable w/ no acute ischemic changes, trop 7.0, BNP 50 - Continue asa - Obtain TTE as above T2DM - Most recent a1c on 12/16/24 was 9.1% - Home regimen is 40-50u degludec BID - During admission, will do 25u glargine daily + SSI 50 CF, 10 CR. BSG check ACHS BPH - on tamsulosin 0.4mg qd; hold HLD - on atorvastatin 20mg qHS; continue Diet: Regular w/ HH, DM2 + mIVF w/ LR at 125 VTE ppx: lovenox Dispo: admit to med-tele; eventual d/c home with son Code: DNR History of Present Illness Primary Care Provider: Kimo Lamar III, CRNP Ronn is an 84yo M with PMH significant for CAD s/p CABG, HLD, HTN, DM2, OA, and BPH who presents to the hospital after multiple syncopal episodes. His son is present at bedside and helps provide the history. He lives with his son but is active and independent with his ADLs. He has been having lightheadedness whenever he stands for over one year, and associated falls. He had a quadruple bypass in February 2024. His falls before the CABG sometimes involved losing consciousness, whereas since the operation, they had been much less frequent and he remained alert; recently, they have worsened again, in terms of frequency. He denies any recent changes to his diet, lifestyle, or medications. He was seen by his PCP last week, where he had positive orthostatic vitals, and they reduced his Lasix dose by half. He had a fall yesterday and another this morning, while trying to get out of his truck. He did feel lightheaded and sense the fall coming, but was unable to sit back down in time. He caught himself on his arm and has a slight abrasion, but did not hit his head or lose consciousness. Son confirms he was awake and lucid throughout this episode. In the ED, an EKG was obtained showing sinus antonia w/ 1st degree A-V block, RBBB, and L anterior fascicular block along with more prominent T wave inversions compared w/ past EKGs. He is hemodynamically stable, alert, conversant. He denies any chest pain, palpitations, JASSO, vertigo, weakness, abnormal balance, numbness or tingling. He reports some shortness of breath that resolves quickly with rest. Allergies Allergy/AdvReac Type Severity Reaction Status Date / Time lisinopril AdvReac Mild Dizziness Verified 01/30/25 16:38 Home Medications Medication Instructions Recorded Confirmed Type aspirin 325 mg tablet 325 mg PO HS 02/10/19 01/30/25 History blood-glucose meter (OneTouch #1 ea 11/20/22 01/24/25 Rx Ultra2 Meter) lancets 33 gauge (OneTouch Delica #200 ea 11/20/22 01/24/25 Rx Plus Lancet) insulin degludec 200 unit/mL (3 40 - 50 unit (0.2 - 0.25 mL) 12/28/23 01/30/25 Rx mL) subcutaneous pen (Tresiba subcut BID #45 mL FlexTouch U-200 insulin) atorvastatin 20 mg tablet 20 mg PO HS #90 tabs 03/16/24 01/30/25 Rx melatonin 5 mg capsule 5 mg PO PM 03/17/24 01/30/25 History tamsulosin 0.4 mg capsule 0.4 mg PO DAILY #90 caps 12/15/24 01/30/25 Rx blood sugar diagnostic (OneTouch #200 strips 01/05/25 01/24/25 Rx Ultra Test strips) furosemide 40 mg tablet 20 mg (1/2 x 40 mg) PO DAILY #90 01/24/25 01/30/25 Rx tabs Past Med/Surg History Problem List (Updated 01/30/25 @ 23:08 by Jovany Wyatt DO) Bradycardia (Acute) Atrioventricular block, first degree (Acute) CKD (chronic kidney disease) (Acute) Syncope and collapse (Acute) 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) Dysmetabolic syndrome X (Chronic) LVH (left ventricular hypertrophy) (Chronic) Benign localized hyperplasia of prostate with urinary obstruction (Chronic) Coronary artery arteriosclerosis (Chronic) Hypercholesterolemia (Chronic) Benign essential hypertension (Chronic) Microalbuminuria (Chronic) Osteoarthritis of left shoulder (Chronic) Diabetes mellitus (Chronic) Medical History (Updated 01/30/25 @ 23:08 by Jovany Wyatt DO) Multi-vessel coronary artery stenosis Hypertension Bifascicular bundle branch block Diastolic dysfunction Murmur Obesity Osteoarthritis BPH (benign prostatic hyperplasia) Diabetes mellitus, type 2 IDDM Coronary artery disease 100% RCA with collateralization per cardio Hyperlipidemia Ch DVT/embl low ext NOS Diverticulosis of colon Surgical History (Updated 03/17/24 @ 10:02 by NIK Salguero III) Status post total shoulder arthroplasty Left- done 03/25/[address] Bright History of repair of rotator cuff RT Hx of vasectomy History of colonoscopy History of tooth extraction History of tonsillectomy History of cardiac cath 7 YEARS AGO Family History Father Heart murmur Acute myocardial infarction Cardiac disorder Myocardial infarction Denies family history of Ovarian cancer Prostate cancer Breast cancer Colorectal cancer Social History Smoking Status: Former smoker Tobacco Type: Cigarettes Age Started Using Tobacco: 8; Age Quit Using Tobacco: 62; packs per day: 1; Second Hand Exposure: No; Do You Dip or Chew Tobacco: No; Hx Alcohol Use: No Hx Substance Use: No Preferred Language: Armenian Communication Ability: Effective Visual Impairment: No Limitations Hearing Ability: Normal 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 Physical Exam Physical Exam: Gen: Pleasant, WD/WN, in NAD HEENT: NCAT, normal conjunctiva, anicteric sclera, MMM, trachea midline CV: RRR, +systolic murmur, S1/S2 present, no LE edema Resp: CTAB, symmetrical chest rise, breathing non-labored Abd: Soft, NT/ND, +BS, no masses MSK: Full ROM, no gross deformities on inspection Skin: Warm, dry, well-perfused, no rashes, small bruise on R forearm after fall Neuro: AOx3, EOMI, PERRL, face symmetric, tongue midline, str 5/5 x 4, SILT in face and ext x4, no focal deficits Psych: Full, euthymic affect. Speech pace normal. Thoughts linear and goal- directed. Results & Data Results & Data Vital Signs (Past 12 Hours) Vital Signs Temp Pulse Pulse Resp BP BP Pulse Ox 01/30/25 16:00 54 L 01/30/25 15:24 96 01/30/25 15:24 59 L 17 152/68 H 96 01/30/25 14:12 36.5 C 70 16 121/64 98 O2 Del Method 01/30/25 16:00 01/30/25 15:24 Room Air 01/30/25 15:24 Room Air 01/30/25 14:12 Room Air Supervising Physician Co-Signing Physician Notes I personally examined the patient and verified all lynn points of history and exam, discussed case, and agree with decision making with Dr Donna Jimenez whenever he gets up. No syncope. Vitals noted, in general he is awake and alert pleasant no distress. HEENT normocephalic atraumatic mucous membranes moist. Breathing unlabored no accessory muscle use good effort. Skin without rashes pallor or icterus. Neuro without focal deficits. Labs and diagnostics noted. Persistent lightheadednesshe was seen at his PCPs office recently and Lasix w as decreased, I suspect this was the right move, but that he is probably still a bit dry both between Lasix and the weather (probably compounded by poor p.o. intake). He does not carry a personal history of frequent CHF exacerbations, so I suspect we can get rid of the Lasix altogether. Check an echocardiogram for more updated information on his LV function and valve function. Gentle hydration. Follow his symptoms. He does not show significant bradycardia arrhythmias, but he does have some blocks on his EKGfollow on monitor to ensure he does not go in and out of symptomatic bradycardiabut I suspect this is much more likely a volume status issue. Otherwise as above. 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
--- NOTE | 2025-01-30 19:20 | Billing Data ---
Date of Service January 30, 2025 Coding Level of Care Code 37013 INT INP/OBS CARE
--- NOTE | 2025-01-30 19:20 | Billing Data ---
Date of Service January 30, 2025 Coding Level of Care Code 60724 INT INP/OBS CARE
[2025-01-30] MEDS ORDERED: POLYETHYLENE (MIRALAX) 17 GM PACK PO PRN (20:56)
[2025-01-30] MEDS ORDERED: ONDANSETRON INJ 2 MG/ML 2 ML VIAL IV PRN (20:56)
[2025-01-30] MEDS: INSULIN ASPART PER UNIT CHARGE SC SCH (21:13)
[2025-01-30] MEDS: ASPIRIN 325 MG ECTAB PO SCH (21:33)
[2025-01-30] MEDS: ATORVASTATIN 20 MG TAB PO SCH (21:33)
[2025-01-30] MEDS: LACTATED RINGER'S 1,000 ML IV SCH (21:33)
--- NOTE | 2025-01-31 07:45 | Hospitalist Progress Note ---
Date of Service January 31, 2025 Assessment & Plan (1) Syncope and collapse: (2) Diabetes mellitus: (3) S/P coronary artery bypass graft x 4: (4) Benign essential hypertension: Plan Ronn is an 84yo M with PMH significant for CAD s/p CABG, HLD, HTN, DM2, OA, and BPH who presents to the hospital after multiple syncopal episodes. Syncope - Pt w/ lightheadedness > 1 year. Had falls w/ loss of consciousness prior to CABG but not since. Sx and falls have become more frequent recently. One yesterday and one today - abrasion on arm, no head hit, did have prodrome, no postictal state or LOC - Orthostatic vitals taken at PCP office showed 136/72 when lying down, 132/78 after sitting up, and 118/46 when standing - ED workup showed: Abnormal EKG w/ first-degree block, RBBB, and L anterior fascicular block. CXR normal. Labs notable for normal cardiac enzymes - Etiology hypovolemia vs symptomatic bradycardia. Worsening of pt's sx does coincide with hotter weather; suspect combination of heat, inadequate hydration, and ongoing orthostatic hypotension underlies frequent falls - Will continue mIVF with LR. Also encourage po intake w/ regular diet - Lasix recently decreased from 40mg to 20mg daily; Continue to hold, consider need to resume prior to discharge - TTE to eval EF and worsening murmur- performed, pending results - No cardiology consult at this time; will consider if sx persist despite volume repletion and seem more cardiogenic CAD s/p CABG - EKG stable w/ no acute ischemic changes, trop 7.0, BNP 50 - Continue asa - Obtain TTE as above >TTE results pending T2DM - Most recent a1c on 12/16/24 was 9.1% - Home regimen is 40-50u degludec BID - During admission, will do 25u glargine daily + SSI 50 CF, 10 CR. BSG check ACHS -Will [employer] on lifestyle modifications and the importance of checking sugars at home and understanding of why these changes are important. BPH - on tamsulosin 0.4mg qd; hold HLD - on atorvastatin 20mg qHS; continue Diet: Regular w/ HH, DM2 + mIVF w/ LR at 125 VTE ppx: lovenox Dispo: admit to med-tele; eventual d/c home with son Code: DNR Admission and Anticipated Discharge Date Admission Date: January 30, 2025 Supervising Physician Co-Signing Physician Notes I personally examined the patient and verified all lynn points of history and exam, discussed case, and agree with decision making with Dr Dunn and Yeni Huber MS4 overall feeling better. had not gotten up when i saw him. with prompting - able to get up on his own without difficulty and without orthostasis, however, after only ~15-20ft ambulating he started to slow, blink heavily and express some feelings of lightheadedness. was able to walk back to room on his own and sit in bed, but did have lightheadedness with only a short distance of ambulation. vitals noted ambulation as above, breathing unlabored no accessory muscles good effort skin no rashes no pallor or icterus labs noted, echo still pending Persistent lightheadednessfits the most with hypovolemia. could potentially be a degree of orthostasis from alpha vy (tamsulosin) but since it's really helping him w BPH sx and becuase he's doing better with lasix on hold/getting IV fluids - will manage as purely hypovolemia for now and follow. doing better than yesterday but still seems too symptomatic to be safe at home. awaiting echo - if has a degree of cardiomyopathy that needs med management, would consider afterload reduction instead of diuresis and reserve diuresis just for prn volume overload (which does not sound to have been his situation) DM2 - on insulin, poor baseline control. continue to titrate basal/bolus, educate on lifestyle change DVT proph - lovenox Otherwise as above. Subjective Patient was lying in bed comfortably, in no acute distress. Stated that he just had his echo completed. Denies CP, SOB, abdominal pain, weakness, numbness and tingling in extremities. Stated he has not had any dizziness, but he has not been up out of bed. Review of Systems Review of Systems: Full ROS conducted and negative except as noted in HPI. Physical Exam Physical Exam: Gen: Pleasant, WD/WN, in NAD HEENT: NCAT, normal conjunctiva, anicteric sclera, MMM, trachea midline CV: RRR, +systolic murmur, S1/S2 present, no carotid bruits, no LE edema Resp: CTAB, symmetrical chest rise, breathing non-labored Abd: Soft, NT/ND, +BS, no masses MSK: Full ROM, no gross deformities on inspection Skin: Warm, dry, well-perfused, no rashes, small bruise on R forearm after fall Neuro: AOx3, EOMI, PERRL, face symmetric, tongue midline, str 5/5 x 4, SILT in face and ext x4, no focal deficits Psych: Full, euthymic affect. Speech pace normal. Thoughts linear and goal- directed. Results & Data Results & Data Vital Signs (Past 12 Hours) Vital Signs Temp Pulse Pulse Resp BP BP Pulse Ox 01/31/25 04:53 36.6 C 56 L 20 128/69 94 01/31/25 00:00 56 L 01/30/25 23:23 36.5 C 56 L 18 136/70 95 01/30/25 21:01 36.4 C L 57 L 18 149/70 H 94 01/30/25 21:00 55 L O2 Del Method 01/31/25 04:53 Room Air 01/31/25 00:00 01/30/25 23:23 Room Air 01/30/25 21:01 Room Air 01/30/25 21:00 (2) Diabetes mellitus Diabetes mellitus complication detail: with other circulatory complications Diabetes mellitus complication status: with circulatory complication Diabetes mellitus assisted insulin use: with assisted use Diabetes mellitus type: type 2 Qualified Code(s): E11.59 - Type 2 diabetes mellitus with other circulatory complications; Z79.4 - [facility] (current) use of insulin
[2025-01-31] MEDS: ENOXAPARIN INJ 40 MG/0.4 ML SYR SQ SCH (08:02)
[2025-01-31 08:37] LABS: Hematocrit (blood only) 34.5 % (42.0-52.0); Hemoglobin 11.7 g/dl (14.0-18.0); Mean Corpuscular Hemoglobin 30.8 pg (25.0-34.0); Mean Corpuscular Volume 90.8 fL (80.0-100.0); Platelet Count 275 K/uL (130-400); RDW Standard Deviation 47.8 fL (36.4-46.3); Red Blood Count 3.80 M/uL (4.70-6.10); White Blood Count 6.23 K/ul (4.8-10.8)
[2025-01-31 08:55] LABS: Anion Gap 4.0 (3-11); Blood Urea Nitrogen 26.0 mg/dl (6-23); Calcium 8.5 mg/dl (8.6-10.3); Carbon Dioxide 31.0 mmol/L (21-32); Chloride 105.0 mmol/L (98-107); Creatinine Clr Calc Pharmacy 37.8 ml/min; Glucose 192.0 mg/dl (70-99(Fasting)); Potassium 4.6 mmol/L (3.5-5.1); Sodium 140.0 mmol/L (136-145)
[2025-01-31] MEDS: LANTUS PER UNIT CHARGE SQ SCH (09:27)
--- NOTE | 2025-01-31 13:09 | Billing Data ---
Date of Service January 31, 2025 Coding Level of Care Code 94090 SUB INP/OBS CARE 3MIN
[2025-02-01 06:48] LABS: Hematocrit (blood only) 34.1 % (42.0-52.0); Hemoglobin 11.7 g/dl (14.0-18.0); Mean Corpuscular Hemoglobin 30.8 pg (25.0-34.0); Mean Corpuscular Volume 89.7 fL (80.0-100.0); Platelet Count 257 K/uL (130-400); RDW Standard Deviation 46.1 fL (36.4-46.3); Red Blood Count 3.80 M/uL (4.70-6.10); White Blood Count 4.99 K/ul (4.8-10.8)
[2025-02-01 07:08] LABS: Anion Gap 5.0 (3-11); Blood Urea Nitrogen 23.0 mg/dl (6-23); Calcium 8.7 mg/dl (8.6-10.3); Carbon Dioxide 29.0 mmol/L (21-32); Chloride 106.0 mmol/L (98-107); Creatinine Clr Calc Pharmacy 39.4 ml/min; Glucose 156.0 mg/dl (70-99(Fasting)); Potassium 4.5 mmol/L (3.5-5.1); Sodium 140.0 mmol/L (136-145)
[2025-02-01 08:21] VITALS: BP 170/75; RESP 18; TEMP 97.7; O2SAT 95
--- NOTE | 2025-02-01 10:09 | Discharge Summary ---
Date of Service February 01, 2025 Admission HPI Per Admitting Provider Ronn is an 84yo M with PMH significant for CAD s/p CABG, HLD, HTN, DM2, OA, and BPH who presents to the hospital after multiple syncopal episodes. His son is present at bedside and helps provide the history. He lives with his son but is active and independent with his ADLs. He has been having lightheadedness whenever he stands for over one year, and associated falls. He had a quadruple bypass in February 2024. His falls before the CABG sometimes involved losing consciousness, whereas since the operation, they had been much less frequent and he remained alert; recently, they have worsened again, in terms of frequency. He denies any recent changes to his diet, lifestyle, or medications. He was seen by his PCP last week, where he had positive orthostatic vitals, and they reduced his Lasix dose by half. He had a f all yesterday and another this morning, while trying to get out of his truck. He did feel lightheaded and sense the fall coming, but was unable to sit back down in time. He caught himself on his arm and has a slight abrasion, but did not hit his head or lose consciousness. Son confirms he was awake and lucid throughout this episode. In the ED, an EKG was obtained showing sinus antonia w/ 1st degree A-V block, RBBB, and L anterior fascicular block along with more prominent T wave inversions compared w/ past EKGs. He is hemodynamically stable, alert, conversant. He denies any chest pain, palpitations, JASSO, vertigo, weakness, abnormal balance, numbness or tingling. He reports some shortness of breath that resolves quickly with rest. Principal Diagnosis Syncope and collapse Discharge Exam General: Well appearing, age appropriate, no acute distress Heart: RRR, +S1 S2, no gallops/rubs, systolic murmur Lungs: cta b/l, no wheezes/rales/rhonchi Abd: soft, nontender to palpation Extremities: no swelling, no rashes, muscle strength 5/5 bilaterally in all extremities Neuro: CN2-12 grossly intact, sensation intact in all extremities, A&O x3 Discharge Data Allergies Allergy/AdvReac Type Severity Reaction Status Date / Time lisinopril AdvReac Mild Dizziness Verified 01/30/25 16:38 Hospital Course (1) Syncope and collapse: (2) Diabetes mellitus: (3) S/P coronary artery bypass graft x 4: (4) Benign essential hypertension: Kay Brody is an 84yo M with PMH significant for CAD s/p CABG, HLD, HTN, DM2, OA, and BPH who presents to the hospital after multiple syncopal episodes. Syncope - Pt w/ lightheadedness > 1 year. Had falls w/ loss of consciousness prior to CABG but not since. Sx and falls have become more frequent recently. One yesterday and one today - abrasion on arm, no head hit, did have prodrome, no postictal state or LOC - Orthostatic vitals taken at PCP office showed 136/72 when lying down, 132/78 after sitting up, and 118/46 when standing - ED workup showed: Abnormal EKG w/ first-degree block, RBBB, and L anterior fascicular block. CXR normal. Labs notable for normal cardiac enzymes - Etiology hypovolemia vs symptomatic bradycardia. Worsening of pt's sx does coincide with hotter weather; suspect combination of heat, inadequate hydration, and ongoing orthostatic hypotension underlies frequent falls - Started mIVF 125mL/hr with LR. Also encouraged po intake w/ regular diet - Lasix recently decreased from 40mg to 20mg daily; held while hospitalized, discontinue at discharge. - Obtained TTE to eval EF and worsening murmur - completed, below - No cardiology consult needed, patient was able to walk up and down the hallway today without symptoms and under his own power. - Counselled on drinking 60-80 oz of water daily to maintain hydration. CAD s/p CABG - EKG stable w/ no acute ischemic changes, trop 7.0, BNP 50 - Continue asa while hospitalized and at discharge. - Obtained TTE, as above >Left Ventricular Ejection Fraction = 60-65% There is mild concentric left ventricular hypertrophy The aortic valve is moderately calcified Mild valvular aortic stenosis Trace aortic regurgitation There is mild mitral regurgitation Grade I diastolic dysfunction T2DM - Most recent a1c on 12/16/24 was 9.1% - Home regimen is 40-50u degludec BID - During admission, gave 25u glargine daily + SSI 50 CF, 10 CR. BSG check ACHS - Counselled on lifestyle modifications and the importance of checking sugars at home and understanding of why these changes are important. - Continue 40-50 units degludec BID upon discharge BPH - on tamsulosin 0.4mg qd; held while hospitalized, continue at discharge. HLD - on atorvastatin 20mg qHS; continued while hospitalized and at discharge. Diet: Regular w/ HH, DM2 + mIVF w/ LR at 125 VTE ppx: lovenox Dispo: admit to med-tele; eventual d/c home with son Code: DNR Total Time Total Time Spent Total Time Spent (In Minutes): <30 Discharge Plan Discharge Items Patient Disposition: Home - Self-Care Reason For Visit: SYNCOPE Discharge Diagnosis: Dehydration Condition on Discharge: Fair Activity: Resume your previous activity Non-emergency contact: Primary Care Provider Call non-emergency contact if: your symptoms worsen Follow-up/Referrals: Kimo Lamar III, CRNP [Primary Care Provider] - 02/09/25 11:00 am Diet: Heart Healthy Addrobert Attending Provider Instructions: You were admitted for syncope (passing out) due to your recent progression in episodes. A full work up of your heart did not reveal a cardiac cause, however it was noted that you were dehydrated. You have been receiving IV fluids are well as your usual fluids by mouth. At this time we are recommending that you increase your daily fluid intake to 60-80oz daily and that you hold off on taking your lasix (furosemide) until you meet with your Primary Care Physician (PCP). Please resume taking your usual dose of Flomax (tamsulosin) to assist with emptying your bladder as we don't feel this is the main culprit of your dizziness/passing out. Please resume the rest of your daily medications as previous to his hospital stay. Please follow up with your PCP in the next 7-10 days. 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 - Adjusting or holding the dose from day to day can cause unintentional flucuations in blood sugar levels. - Goal is to find the right dose that helps keep blood sugar levels ~130-150 upon waking most days. - If you find it easier, you can take your insulin 1x/day in the evening. 2.) Other Medicaion Options: - Per review of your outpatient records, Kimo recommended adding Mounjaro to help improve your blood sugar levels thru the day. - This is a weekly injectable diabetes medication that helps stimulate your pancreas to make more insulin when needed, helps lower the amount of glucose made by your liver, and helps slow down digestion of food to promote fullness and minimize post-meal blood sugar spikes. - Recommend checking with your insurance to see if this medication or another similar medication (Ozempic or Trulicity) is covered and what your cost would be. 3.) Lifestyle changes: - Try to include protein with all meals to help balance blood sugar levels thru the day. - Try to be mindful of portion sizes of carbs/starches. 4.) Check your blood sugar: - Your provider may consider putting you on a continuous glucose monitor for closer monitoring of blood sugar levels. - These devices go on the back of your arm and automatically check your blood sugar without fingersticks. - These devices also have alarms to alert you if your blood sugar gets too low. Pending Studies at Discharge: No Stand-Alone Forms: [facility], Smoking Cessation Medications and DC Order Prescriptions: Continued (DME) blood-glucose meter [OneTouch Ultra2 Meter] [facility] [place] See Rx Instructions .Route Qty: 1 0RF Rx Instructions: As directed to check blood sugars two times a day (DME) lancets [OneTouch Delica Plus Lancet] 33 gauge [facility] [place] See Dose Instructions .ROUTE .MEDSUPPLY Qty: 200 3RF Rx Instructions: As directed to check blood sugars two times a day Tresiba FlexTouch U-200 200 unit/mL (3 mL) insulin pen 40 - 50 unit SQ BID Qty: 45 3RF Rx Instructions: or as directed atorvastatin 20 mg tablet 20 mg PO HS Qty: 90 3RF (DME) OneTouch Ultra Test Strip See Rx Instructions .ROUTE .COMPLEX Qty: 200 3RF Dose Instruction: TEST TWICE DAILY E11.9 Rx Instructions: TEST TWICE DAILY E11.9 aspirin 325 mg tablet 325 mg PO HS tamsulosin 0.4 mg capsule 0.4 mg PO DAILY Qty: 90 1RF melatonin 5 mg capsule 5 mg PO PM Discontinued furosemide 40 mg tablet 20 mg PO DAILY Qty: 90 3RF Discharge Orders: Discharge Order (Routine); Ordered 02/01/25 Ordered By: Rosita Stokes/Other Patient Handouts: Dehydration Admission Data Admit Date/Time: 01/30/25 17:15 Attending Provider: Elvin Maynard Admit Provider: Shobha Thompson Primary Care Provider: Kimo Lamar III Other Interventions: Discharge Summary Assessment (RN) Last Done: 02/01/25 10:11 Supervising Physician Co-Signing Physician Notes I personally examined the patient and verified all lynn points of history and exam, discussed case, and agree with decision making with Dr Dunn and Yeni Huber MS4 Feeling better. Still gets a little bit lightheaded with walking, but far less than before and is able to walk far better than before. Feels up to going home. Discussed holding off on diuretics, discussed the role of the tamsulosin potentially being a mild culprit in his orthostasis, but also that it seems to be really helping with his BPH symptoms. Vitals noted, in general he is awake and alert pleasant no distress. HEENT normocephalic atraumatic mucous membranes moist. Breathing unlabored no accessory muscle use good effort. Skin without rashes pallor or icterus. Neuro without focal deficits. Persistent lightheadednessfits the most with hypovolemia. could potentially be a degree of orthostasis from alpha vy (tamsulosin) but since it's really helping him w BPH sx and becuase he's doing better with lasix on hold/getting IV fluids - will manage as purely hypovolemia for now and follow. Echo overall reassuring that he seems to be low risk for a CHF decompensationespecially given that that has also not been his individual track record. Home, p.o. hydration outlined. Hold diuretics. Did discuss avoiding salt loading even though that could be helpful with hydration because it would also be a fairly easy way to precipitate CHF. Close outpatient PCP and cardiology follow- upcertainly could consider afterload reduction with TRIPP/ARB/Entresto, but would probably hold off on diuresis unless he shows true volume overload. DM2 - on insulin, poor baseline control. Ongoing close outpatient follow-up. Lifestyle change would be quite helpful. Was not able to really discuss in depth, as I did not want to overwhelm him with information, and discussing the orthostasis/hydration/holding off on diuresis was necessarily the bulk of our di scussions. DVT proph - lovenox Otherwise as above.
[2025-02-01 10:13] VITALS: PULSE 75
--- NOTE | 2025-02-01 16:09 | Billing Data ---
Date of Service February 01, 2025 Coding Level of Care Code 93123 IN/OBS DISCH 30 MIN/LESS
== END 2025-02-01 11:29 | disposition home or self-care (01) | DRG 641 ==
LOC: ED 14:04 → 2N 17:15

== ENCOUNTER 2025-02-08 13:39 | Inpatient (IN) ==
[2025-02-08] MEDS: SODIUM CHLORIDE 0.9% 500 ML IV ONE (14:15)
[2025-02-08 14:26] LABS: Hematocrit (blood only) 37.4 % (42.0-52.0); Hemoglobin 13.1 g/dl (14.0-18.0); Immature Granulocytes # (auto) 0.07 K/uL (0.01-0.20); Immature Granulocytes % (auto) 0.6 %; Mean Corpuscular Hemoglobin 30.8 pg (25.0-34.0); Mean Corpuscular Volume 88.0 fL (80.0-100.0); Platelet Count 342 K/uL (130-400); RDW Standard Deviation 47.3 fL (36.4-46.3); Red Blood Count 4.25 M/uL (4.70-6.10); White Blood Count 11.10 K/ul (4.8-10.8)
--- NOTE | 2025-02-08 14:36 | XRay Report ---
XR chest 1V portable CLINICAL HISTORY: eval for syncope COMPARISON STUDY: 01/30/2025 FINDINGS: Stable CABG. Heart size and pulmonary vasculature are normal. No consolidation or pleural e ffusion. No pneumothorax. IMPRESSION: No acute findings seen. ACT 112: Negative or not required by law. Electronically signed by: Camilo Otero M.D. 02/08/2025 2:34 PM
[2025-02-08 14:52] LABS: Alanine Aminotransferase 18 U/L (7-52); Albumin Globulin Ratio 1.4 (0.9-2); Alkaline Phosphatase 91 U/L (34-104); Anion Gap 8 (3-11); Bilirubin,Total 1.0 mg/dl (0.2-1.0); Blood Urea Nitrogen 25 mg/dl (6-23); Calcium 9.7 mg/dl (8.6-10.3); Carbon Dioxide 25 mmol/L (21-32); Chloride 97 mmol/L (98-107); Globulin 3.2 gm/dl (2.5-4.0); Glucose 336 mg/dl (70-99(Fasting)); Magnesium 1.9 mg/dl (1.7-2.4); Sodium 130 mmol/L (136-145); Total Protein 7.6 gm/dl (6.0-8.3)
[2025-02-08 15:03] LABS: Potassium 4.7 mmol/L (3.5-5.1)
[2025-02-08] MEDS: SODIUM CHLORIDE 0.9% 1,000 ML IV ONE (15:16)
--- NOTE | 2025-02-08 15:43 | Emergency Department Note ---
Impression & Plan Syncope, Hx of CABG, Acute hyponatremia, Acute hyperglycemia ED Provider Note NAME: NANCY MAGUIRE AGE: 84 SEX: M : 1940 ARRIVES VIA: Walk-In INFORMANT: Patient, ED PROVIDER(S): Paul Steinberg MD CHIEF COMPLAINT: Fall, syncope MEDICAL DECISION MAKING: Patient presents for the above. IV was established and blood work was obtained. Patient's EKG was reviewed. Patient was ordered IV fluids. Patient did have a blood pressure 104/58 initially ordered 500 of IV fluids but also ordered an additional thousand. Blood work shows a white count of 13.1. Platelet count is unremarkable. Kidney function about baseline. Possible pseudohyponatremia but slightly lower sodium at 130. Send acute change from the 16th when it was 140. Blood sugar of 336. TSH unremarkable. Screening chest x-ray unremarkable. I did speak with the patient and did speak with the on-call hospitalist Dr. Storey the patient was admitted to the medicine service. Discussion w/ other healthcare providers: Dr. Vera inpatient medicine service Prior /Outside records reviewed: None Differential diagnosis: Vasovagal event, dehydration, infection, hypoglycemia, electrolyte abnormalities, arrhythmia, pulmonary embolism, seizure among others were considered. Diagnostics, as interpreted by me: ECG: Sinus with a first-degree AV block, rate of 70 prolonged OK wide QRS, left axis deviation, right bundle branch block pattern, T wave inversions with depressions in the lateral leads which may be more pronounced from comparison EKG January 30, 2025. Cardiac monitoring: An order was placed for continuous cardiac monitoring. The monitor shows a rate of 75 with sinus rhythm. Patient was placed on pulse oximetry Medical decision rules: None Imaging studies: I informally interpreted the patient's chest x-ray does not show evidence of pneumonia or pneumothorax with formal report to follow. HPI: Patient presents due to concern for syncope. He reports that he was admitted for similar symptoms within the last week and was discharged and did have a follow-up visit today. The patient states that he has been persistently dizzy and passed out while in clinic. He had an EKG performed by Kimo Lamar was concerned about the EKG and sent him here for further evaluation treatment. Patient currently denies any chest pains. He does not complain of any headache and does not think that he struck his head. Patient did have an echocardiogram completed during his most recent admission. Patient reports that he did have his Lasix stopped after he was diagnosed with dehydration and states that he received a total of 4 L of IV fluids during his stay. He does have a prior history of CABG. PAST MEDICAL HISTORY: See Below PAST SURGICAL HISTORY: See Below SOCIAL HISTORY: See Below HOME MEDICATIONS: See Below ALLERGIES: See Below VITALS: See Below PHYSICAL EXAMINATION: GENERAL: NAD, non-toxic. EYE EXAM: Normal conjunctiva. PERRL, no anisocoria and EOM's grossly intact w/o pain. OROPHARYNX: Dry mucus membranes, grossly normal dentition. NECK: Trachea midline, no stridor. LUNGS: Clear to auscultation. Normal chest wall mechanics. HEART: NSR, no MRG. ABDOMEN: Abdomen soft, non-tender, no masses, no rebound or guarding. BACK: No CVA TTP. SKIN: No rashes and no bruising. UPPER EXTREMITIES: Upper extremities are grossly normal. LOWER EXTREMITIES: Grossly normal, no edema. NEURO EXAM: Awake and alert, follows commands, no obvious facial asymmetry, normal speech, moves all 4 extremities. 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) Coronary artery arteriosclerosis (Chronic) Hypercholesterolemia (Chronic) Benign essential hypertension (Chronic) Microalbuminuria (Chronic) Osteoarthritis of left shoulder (Chronic) Diabetes mellitus (Chronic) Medical History Multi-vessel coronary artery stenosis Hypertension Bifascicular bundle branch block Diastolic dysfunction Murmur Obesity Osteoarthritis BPH (benign prostatic hyperplasia) Diabetes mellitus, type 2 IDDM Coronary artery disease 100% RCA with collateralization per cardio Hyperlipidemia Ch DVT/embl low ext NOS Diverticulosis of colon Surgical History Status post total shoulder arthroplasty Left- done 03/25/[address] Bright History of repair of rotator cuff RT Hx of vasectomy History of colonoscopy History of tooth extraction History of tonsillectomy History of cardiac cath 7 YEARS AGO Family History Father Heart murmur Acute myocardial infarction Cardiac disorder Myocardial infarction Denies family history of Ovarian cancer Prostate cancer Breast cancer Colorectal cancer Social History Smoking Status: Never smoker Tobacco Type: Cigarettes Age Started Using Tobacco: 8; Age Quit Using Tobacco: 62; packs per day: 1; Second Hand Exposure: No; Do You Dip or Chew Tobacco: No; Hx Alcohol Use: No Hx Substance Use: No Preferred Language: Hebrew Communication Ability: Effective Visual Impairment: No Limitations Hearing Ability: Normal 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 Beliefs That Will Affect Care: None marital status: / Current Living Situation: Alone current occupational status: retired How many Children do You have: 2 Feels Safe at Home: Yes Childhood Exposure to Second-Hand Smoke: Yes Diet: regular caffeine: Yes during the past year weight has: remained stable Dental Care, Regularly: No Physical Activity Frequency: Does not Exercise Seatbelt Use: never Sunscreen Use: No Assistive Devices: Cane and Walker Allergies Allergies Allergy/AdvReac Type Severity Reaction Status Date / Time lisinopril AdvReac Mild Dizziness Verified 02/08/25 13:02 metformin AdvReac Diarrhea Verified 02/08/25 16:04 Home Meds Home Medications Medication Instructions Recorded Confirmed aspirin 325 mg tablet 325 mg PO HS 02/10/19 02/08/25 docusate sodium 100 mg capsule 100 mg PO BID 02/08/25 02/08/25 Previous Rx's Medication Instructions Recorded lancets 33 gauge (OneTouch Delica #200 ea 11/20/22 Plus Lancet) insulin degludec 200 unit/mL (3 40 - 50 unit (0.2 - 0.25 mL) 12/28/23 mL) subcutaneous pen (Tresiba subcut BID #45 mL FlexTouch U-200 insulin) atorvastatin 20 mg tablet 20 mg PO HS #90 tabs 03/16/24 tamsulosin 0.4 mg capsule 0.4 mg PO DAILY #90 caps 12/15/24 blood sugar diagnostic (OneTouch #200 strips 01/05/25 Ultra Test strips) blood-glucose meter (OneTouch #1 ea 02/02/25 Ultra2 Meter) blood-glucose sensor (FreeStyle #2 ea 02/02/25 Roxie 3 Sensor device) blood-glucose,cylinder grinder,cont #1 ea 02/02/25 (FreeStyle Roxie 3 [place]) blood-glucose sensor (FreeStyle #2 ea 02/06/25 Roxie 3 Plus Sensor device) Results & Data (ED) Vital Signs Vital Signs - 24 hr 02/08/25 13:44 02/08/25 13:54 02/08/25 14:09 Temperature 36.6 C Temperature Source Temporal Artery Scan Pulse Rate 70 72 Pulse Rate from SpO2 Sensor 72 Respiratory Rate 16 22 Respiratory Effort / Characteristics Non-Labored Spontaneous Respiratory Depth Normal Respiratory Pattern Regular Blood Pressure 104/58 L 124/65 Blood Pressure Mean 73 84 Pulse Oximetry 94 92 94 Oxygen Delivery Method Room Air Room Air Sepsis Recent Fever Within 48 Hours No Sepsis New/Unexplained Change in Mental Status No Sepsis Action Taken by Nursing No Action Required 02/08/25 14:18 02/08/25 15:00 02/08/25 16:03 Temperature Temperature Source Pulse Rate 74 66 68 Pulse Rate from SpO2 Sensor 66 69 Respiratory Rate 24 20 Respiratory Effort / Characteristics Respiratory Depth Respiratory Pattern Blood Pressure 153/76 H 161/86 H Blood Pressure Mean 101 111 Pulse Oximetry 94 95 Oxygen Delivery Method Sepsis Recent Fever Within 48 Hours Sepsis New/Unexplained Change in Mental Status Sepsis Action Taken by Nursing 02/08/25 16:24 Temperature Temperature Source Pulse Rate Pulse Rate from SpO2 Sensor Respiratory Rate Respiratory Effort / Characteristics Respiratory Depth Respiratory Pattern Blood Pressure Blood Pressure Mean Pulse Oximetry Oxygen Delivery Method Room Air Sepsis Recent Fever Within 48 Hours Sepsis New/Unexplained Change in Mental Status Sepsis Action Taken by [facility] Medications Current Medication List: was personally reviewed by me Laboratory Data Attestation: I reviewed the patient's lab results. 02/08/25 13:57 02/08/25 13:57 Lab Results 02/08/25 Range/Units 13:57 WBC 11.10 H (4.8-10.8) K/ul RBC 4.25 L (4.70-6.10) M/uL Hgb 13.1 L (14.0-18.0) g/dl Hct 37.4 L (42.0-52.0) % MCV 88.0 (80.0-100.0) fL MCH 30.8 (25.0-34.0) pg MCHC 35.0 (32.0-36.0) g/dL RDW Std Deviation 47.3 H (36.4-46.3) fL RDW Coeff of Karin 14.8 H (11.5-14.5) % Plt Count 342 (130-400) K/uL MPV 8.7 L (9.4-12.4) fL Immature Gran % (Auto) 0.6 % Neut % (Auto) 78.3 % Lymph % (Auto) 12.4 % [place] % (Auto) 8.0 % Eos % (Auto) 0.4 % Baso % (Auto) 0.3 % Neut # (Auto) 8.69 H (1.40-6.50) K/uL Lymph # (Auto) 1.38 (1.20-3.40) K/uL [place] # (Auto) 0.89 H (0.11-0.59) K/uL Eos # (Auto) 0.04 (0.00-0.50) K/uL Baso # (Auto) 0.03 (0.00-0.20) K/uL Immature Gran # (Auto) 0.07 (0.01-0.20) K/uL Sodium 130 L (136-145) mmol/L Potassium 4.7 (3.5-5.1) mmol/L Chloride 97 L (98-107) mmol/L Carbon Dioxide 25 (21-32) mmol/L Anion Gap 8 (3-11) BUN 25 H (6-23) mg/dl Creatinine 1.59 H (0.6-1.4) mg/dl Est Cr Clr Drug Dosing Not Reportable eGFR 43.07 BUN/Creatinine Ratio 15.7 (10-20) Glucose 336 H* (70-99(Fasting)) mg/dl Calcium 9.7 (8.6-10.3) mg/dl Magnesium 1.9 (1.7-2.4) mg/dl Total Bilirubin 1.0 (0.2-1.0) mg/dl AST 12 L (13-39) U/L ALT 18 (7-52) U/L Alkaline Phosphatase 91 (34-104) U/L Troponin I High Sens 10.2 (0-20) pg/ml Total Protein 7.6 (6.0-8.3) gm/dl Albumin 4.4 (3.4-5.0) gm/dl Globulin 3.2 (2.5-4.0) gm/dl Albumin/Globulin Ratio 1.4 (0.9-2) TSH 4.040 (0.300-4.500) uIu/ml Administered Medications Discontinued Medications Sodium Chloride (Nss) 500 mls @ 999 mls/hr IV .Q31M ONE Stop: 02/08/25 14:40 Last Infusion: 02/08/25 14:54 Dose: Infused Documented By: Admin: 02/08/25 14:15 Dose: 999 mls/hr Documented By: YOANNA Sodium Chloride (Nss) 1,000 mls @ 999 mls/hr IV .Q1H1M ONE Stop: 02/08/25 16:12 Last Infusion: 02/08/25 16:17 Dose: Infused Documented By: Admin: 02/08/25 15:16 Dose: 999 mls/hr Documented By: NITHIN Imaging Data Radiologist's Impression: Chest X-Ray 02/08/25 14:10 XR chest 1V portable CLINICAL HISTORY: eval for syncope COMPARISON STUDY: 01/30/2025 FINDINGS: Stable CABG. Heart size and pulmonary vasculature are normal. No consolidation or pleural effusion. No pneumothorax. IMPRESSION: No acute findings seen. ACT 112: Negative or not required by law. Electronically signed by: Camilo Otero M.D. 02/08/2025 2:34 PM Discharge Plan Visit Data Chief Complaint: Fall Stated Complaint: FELL DOWN ED Provider: Paul Steinberg Discharge Problem: Syncope, Hx of CABG, Acute hyponatremia, Acute hyperglycemia Patient Disposition: Admitted As Inpatient Condition: Good Discharge Instructions Interventions: ED Discharge Assessment Last Done: 02/08/25 16:24 Discharge Problem: Syncope Qualifiers: Syncope type: unspecified Qualified Code(s): R55 - Syncope and collapse
[2025-02-08 15:59] LABS: Thyroid Stimulating Hormone 4.040 uIu/ml (0.300-4.500)
--- NOTE | 2025-02-08 16:13 | History & Physical Report ---
Date of Service February 08, 2025 Assessment & Plan (1) Syncope: (2) Heart failure with preserved ejection fraction: Plan In summary this is an 84-year-old male who presents after an episode of witnessed syncope for which he was recently admitted in the past 14 days to this medical facility. #Syncope They deny any prodromal nausea, diaphoresis, visual changes, flushing sensation, atypical neurologic symptoms, or incontinence. This is primarily occurring after he stands and ambulates for a short distance. Pertinent comorbidities include significant coronary artery disease with prior CABG, heart failure with preserved ejection fraction. The patient's initial EKG is not concerning for any acute coronary syndrome, nor the experiencing any anginal equivalent symptoms. Continuous air sampling and monitoring for first 24 hours of admission Follow daily renal function panel and magnesium TTE was recently obtained, without significant dynamic change. Given the absence of anginal equivalents and normal EKG, it is unlikely to have a significant change in the dynamics of their cardiac function. No indication to repeat this study at this time Orthostatic vital signs currently pending Admission and Anticipated Discharge Date Admission Date: 02/08/2025; anticipate discharge within 24 hours History of Present Illness Chief Complaint: Recurrent syncope Primary Care Provider: Kimo Lamar III, NIK Mr. Lima is an 84-year-old male who is active medical conditions include heart failure with preserved ejection fraction in the setting of previous coronary artery bypass graft, CKD stage IIIb among other chronic medical conditions who presents to [facility] for evaluation after witnessed episode of syncope at his primary care physician's office on the same day of presentation. The patient was recently admitted to this facility in the past 2 weeks for similar concerns; at that time the patient's loop diuretic was discontinued given concern for possible intravascular depletion. The patient describes no improvement or resolution of his symptoms since his discharge. He has had no further medication changes since his discharge. He does note that his blood sugar has been persistently difficult to control on his continued t reatment with Tresiba without any recent modification to his regimen. He denies any presyncopal symptoms, focal neurologic deficits, vision changes, associated chest pain. He does have persistent dyspnea on exertion that has not significantly changed in the past several weeks nor has it worsened to the degree that was associated with his episodes of syncope. The patient has not followed with any outside property agent since his CABG in the fall 2023 Allergies Allergy/AdvReac Type Severity Reaction Status Date / Time lisinopril AdvReac Mild Dizziness Verified 02/08/25 13:02 metformin AdvReac Diarrhea Verified 02/08/25 16:04 Home Medications Medication Instructions Recorded Confirmed Type aspirin 325 mg tablet 325 mg PO HS 02/10/19 02/08/25 History lancets 33 gauge (OneTouch Delica #200 ea 11/20/22 02/08/25 Rx Plus Lancet) insulin degludec 200 unit/mL (3 40 - 50 unit (0.2 - 0.25 mL) 12/28/23 02/08/25 Rx mL) subcutaneous pen (Tresiba subcut BID #45 mL FlexTouch U-200 insulin) atorvastatin 20 mg tablet 20 mg PO HS #90 tabs 03/16/24 02/08/25 Rx tamsulosin 0.4 mg capsule 0.4 mg PO DAILY #90 caps 12/15/24 02/08/25 Rx blood sugar diagnostic (OneTouch #200 strips 01/05/25 02/08/25 Rx Ultra Test strips) blood-glucose meter (OneTouch #1 ea 02/02/25 02/08/25 Rx Ultra2 Meter) blood-glucose sensor (FreeStyle #2 ea 02/02/25 02/08/25 Rx Roxie 3 Sensor device) blood-glucose,tax agent,cont #1 ea 02/02/25 02/08/25 Rx (FreeStyle Roxie 3 [place]) blood-glucose sensor (FreeStyle #2 ea 02/06/25 02/08/25 Rx Roxie 3 Plus Sensor device) docusate sodium 100 mg capsule 100 mg PO BID 02/08/25 02/08/25 History Past Med/Surg History Problem List (Updated 02/08/25 @ 16:10 by Steven Storey DO) Heart failure with preserved ejection fraction Syncope Bradycardia (Acute) Atrioventricular block, first degree (Acute) CKD (chronic kidney disease) (Acute) Syncope and collapse (Acute) 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) Dysmetabolic syndrome X (Chronic) LVH (left ventricular hypertrophy) (Chronic) Benign localized hyperplasia of prostate with urinary obstruction (Chronic) Coronary artery arteriosclerosis (Chronic) Hypercholesterolemia (Chronic) Benign essential hypertension (Chronic) Microalbuminuria (Chronic) Osteoarthritis of left shoulder (Chronic) Diabetes mellitus (Chronic) Medical History Multi-vessel coronary artery stenosis Hypertension Bifascicular bundle branch block Diastolic dysfunction Murmur Obesity Osteoarthritis BPH (benign prostatic hyperplasia) Diabetes mellitus, type 2 Coronary artery disease Hyperlipidemia Ch DVT/embl low ext NOS Diverticulosis of colon Surgical History Status post total shoulder arthroplasty History of repair of rotator cuff Hx of vasectomy History of colonoscopy History of tooth extraction History of tonsillectomy History of cardiac cath Family History Father Heart murmur Acute myocardial infarction Cardiac disorder Myocardial infarction Denies family history of Ovarian cancer Prostate cancer Breast cancer Colorectal cancer Social History Smoking Status: Never smoker Tobacco Type: Cigarettes Age Started Using Tobacco: 8; Age Quit Using Tobacco: 62; packs per day: 1; Second Hand Exposure: No; Do You Dip or Chew Tobacco: No; Hx Alcohol Use: No Hx Substance Use: No Preferred Language: Greek Communication Ability: Effective Visual Impairment: No Limitations Hearing Ability: Normal Detective Required: Yes Beliefs That Will Affect Care: None marital status: / Current Living Situation: Alone current occupational status: retired How many Children do You have: 2 Feels Safe at Home: Yes Childhood Exposure to Second-Hand Smoke: Yes Diet: regular caffeine: Yes during the past year weight has: remained stable Dental Care, Regularly: No Physical Activity Frequency: Does not Exercise Seatbelt Use: never Sunscreen Use: No Assistive Devices: Cane and Walker Review of Systems Review of Systems: Constitutional: denies fevers, chills, malaise, fatigue Cardiovascular: denies angina, palpitations, peripheral edema, orthopnea, platypnea Pulmonary: denies cough, pleuritic chest pain Gastrointestinal: denies nausea, emesis, dyspepsia, abdominal distension, constipation, diarrhea Genitourinary: denies dysuria, hematuria, urinary incontinence Neurologic: denies focal weakness, paresthesias or numbness, vision changes or diplopia, ataxia Musculoskeletal: denies arthralgias, progressive weakness Integumentary: denies new or developing rashes or lesions Physical Exam Physical Exam: General: Adult male in no acute distress Vital Signs: Reviewed HEENT: Normocephalic, atraumatic; pupils equally reactive to light, extraocular motions intact; moist mucous membranes Neck: No palpable lymphadenopathy Cardiovascular: Regular rate and rhythm with grade 2/6 systolic murmur best heard in the left second intercostal space parasternally with no rubs or gallops; S1 and S2 normal; bilateral radial and posterior tibial pulses 2+; trace bilateral lower extremity edema distal to the mid leg Gastrointestinal: Soft, nondistended Neurologic: CN II-XII grossly intact; no discernible focal weakness nor pare sthesias Results & Data Results & Data Vital Signs (Past 12 Hours) Vital Signs Temp Pulse Resp BP Pulse Ox O2 Del Method 02/08/25 14:18 74 02/08/25 14:09 94 Room Air 02/08/25 13:44 36.6 C 70 16 104/58 L 94 Room Air Laboratory Results Laboratory Results WBC 11.10 K/ul (4.8-10.8) H 02/08/25 13:57 RBC 4.25 M/uL (4.70-6.10) L 02/08/25 13:57 Hgb 13.1 g/dl (14.0-18.0) L 02/08/25 13:57 Hct 37.4 % (42.0-52.0) L 02/08/25 13:57 MCV 88.0 fL (80.0-100.0) 02/08/25 13:57 MCH 30.8 pg (25.0-34.0) 02/08/25 13:57 MCHC 35.0 g/dL (32.0-36.0) 02/08/25 13:57 RDW Std Deviation 47.3 fL (36.4-46.3) H 02/08/25 13:57 RDW Coeff of Karin 14.8 % (11.5-14.5) H 02/08/25 13:57 Plt Count 342 K/uL (130-400) 02/08/25 13:57 MPV 8.7 fL (9.4-12.4) L 02/08/25 13:57 Immature Gran % (Auto) 0.6 % 02/08/25 13:57 Neut % (Auto) 78.3 % 02/08/25 13:57 Lymph % (Auto) 12.4 % 02/08/25 13:57 [place] % (Auto) 8.0 % 02/08/25 13:57 Eos % (Auto) 0.4 % 02/08/25 13:57 Baso % (Auto) 0.3 % 02/08/25 13:57 Neut # (Auto) 8.69 K/uL (1.40-6.50) H 02/08/25 13:57 Lymph # (Auto) 1.38 K/uL (1.20-3.40) 02/08/25 13:57 [place] # (Auto) 0.89 K/uL (0.11-0.59) H 02/08/25 13:57 Eos # (Auto) 0.04 K/uL (0.00-0.50) 02/08/25 13:57 Baso # (Auto) 0.03 K/uL (0.00-0.20) 02/08/25 13:57 Immature Gran # (Auto) 0.07 K/uL (0.01-0.20) 02/08/25 13:57 Sodium 130 mmol/L (136-145) L 02/08/25 13:57 Potassium 4.7 mmol/L (3.5-5.1) 02/08/25 13:57 Chloride 97 mmol/L (98-107) L 02/08/25 13:57 Carbon Dioxide 25 mmol/L (21-32) 02/08/25 13:57 Anion Gap 8 (3-11) 02/08/25 13:57 BUN 25 mg/dl (6-23) H 02/08/25 13:57 Creatinine 1.59 mg/dl (0.6-1.4) H 02/08/25 13:57 Est Cr Clr Drug Dosing Not Reportable 02/08/25 13:57 eGFR 43.07 02/08/25 13:57 BUN/Creatinine Ratio 15.7 (10-20) 02/08/25 13:57 Glucose 336 mg/dl (70-99(Fasting)) H* 02/08/25 13:57 Calcium 9.7 mg/dl (8.6-10.3) 02/08/25 13:57 Magnesium 1.9 mg/dl (1.7-2.4) 02/08/25 13:57 Total Bilirubin 1.0 mg/dl (0.2-1.0) 02/08/25 13:57 AST 12 U/L (13-39) L 02/08/25 13:57 ALT 18 U/L (7-52) 02/08/25 13:57 Alkaline Phosphatase 91 U/L (34-104) 02/08/25 13:57 Troponin I High Sens 10.2 pg/ml (0-20) 02/08/25 13:57 Total Protein 7.6 gm/dl (6.0-8.3) 02/08/25 13:57 Albumin 4.4 gm/dl (3.4-5.0) 02/08/25 13:57 Globulin 3.2 gm/dl (2.5-4.0) 02/08/25 13:57 Albumin/Globulin Ratio 1.4 (0.9-2) 02/08/25 13:57 TSH 4.040 uIu/ml (0.300-4.500) 02/08/25 13:57 Impressions Chest X-Ray 02/08/25 14:10 XR chest 1V portable CLINICAL HISTORY: eval for syncope COMPARISON STUDY: 01/30/2025 FINDINGS: Stable CABG. Heart size and pulmonary vasculature are normal. No consolidation or pleural effusion. No pneumothorax. IMPRESSION: No acute findings seen. ACT 112: Negative or not required by law. Electronically signed by: Camilo Otero M.D. 02/08/2025 2:34 PM Code Status & VTE Plan Code Status Full Code VTE Prophylaxis Plan VTE Prophylaxis will be ordered: Yes PG Care Time/CCT Total # of Minutes Spent Total Time Spent with Patient: Total time spent is greater than 50% in coordination of care (as documented) at patient's floor/unit and/or counseling patient: Coding Level of Care Code 76778 INT INP/OBS CARE 2/55MIN History Comprehensive Exam Comprehensive Medical Decision Making Moderate Complexity Diagnoses Syncope, unspecified syncope type R55 Syncope type: unspecified Chronic heart failure with preserved ejection fraction (HFpEF) I50.32 Heart failure chronicity: chronic (1) Syncope Syncope type: unspecified Qualified Code(s): R55 - Syncope and collapse (2) Heart failure with preserved ejection fraction Heart failure chronicity: chronic Qualified Code(s): I50.32 - Chronic diastolic (congestive) heart failure
[2025-02-08] MEDS ORDERED: GLUCOSE 40% GEL 15 GM TUBE PO PRN (16:51)
[2025-02-08] MEDS ORDERED: CARBOHYDRATES FOR HYPOGLYCEMIA PO PRN (16:51)
[2025-02-08] MEDS ORDERED: PHARMACY GLYCEMIC MGMT CONSULT PRN (16:51)
[2025-02-08] MEDS ORDERED: DEXTROSE 50% 50 ML SYRINGE IV PRN (16:51)
[2025-02-08] MEDS ORDERED: GLUCAGON FOR INJ 1 MG VIAL SQ PRN (16:51)
[2025-02-08] MEDS ORDERED: GLUCOSE 10 TAB/TUBE PO PRN (16:51)
[2025-02-08] MEDS ORDERED: MELATONIN 3 MG TAB PO PRN (16:51)
[2025-02-08] MEDS ORDERED: Patient's HEIGHT &/or WEIGHT Needed SCH (17:15)
[2025-02-08] MEDS: INSULIN ASPART PER UNIT CHARGE SC SCH (17:53)
[2025-02-08] MEDS: LANTUS PER UNIT CHARGE SC ONE (19:25)
[2025-02-08] MEDS ORDERED: INSULIN ASPART PER UNIT CHARGE SC SCH (21:00)
[2025-02-09 08:33] LABS: Anion Gap 7.0 (3-11); Blood Urea Nitrogen 24.0 mg/dl (6-23); Calcium 8.7 mg/dl (8.6-10.3); Carbon Dioxide 23.0 mmol/L (21-32); Chloride 105.0 mmol/L (98-107); Creatinine Clr Calc Pharmacy 39.8 ml/min; Glucose 87.0 mg/dl (70-99(Fasting)); Magnesium 1.8 mg/dl (1.7-2.4); Potassium 4.1 mmol/L (3.5-5.1); Sodium 135.0 mmol/L (136-145)
--- NOTE | 2025-02-09 09:04 | Hospitalist Progress Note ---
Date of Service February 09, 2025 Assessment & Plan (1) Syncope: (2) Heart failure with preserved ejection fraction: Plan In summary this is an 84-year-old male who presents after an episode of witnessed syncope for which he was recently admitted in the past 14 days to this medical facility. #Syncope They deny any prodromal nausea, diaphoresis, visual changes, flushing sensation, atypical neurologic symptoms, or incontinence. This is primarily occurring after he stands and ambulates for a short distance. Pertinent comorbidities include significant coronary artery disease with prior CABG, heart failure with preserved ejection fraction. The patient's initial EKG is not concerning for any acute coronary syndrome, nor the experiencing any anginal equivalent symptoms.Orthostatic vital signs were obtained on the evening of patient's initial admission and were noted to be positive however the patient was not symptomatic in any degree. Given the lack of increased heart rate associated with his decreased blood pressure upon standing, this does suggest that he may have a degree of autonomic instability/insufficiency however the lack of associated symptoms and his absence of prodromal symptoms at the time of his actual syncopal episodes is concerning for a primarily conductive cause. 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 Given the absence of anginal equivalents and normal EKG, it is unlikely to have a significant change in the dynamics of their cardiac function. No indication to repeat this study at this time Cardiology consulted Admission and Anticipated Discharge Date Admission Date: February 08, 2025; anticipated discharge in 24 to 48 hours Subjective Mr. Lima is an 84-year-old male who is active medical conditions include heart failure with preserved ejection fraction in the setting of previous coronary artery bypass graft, CKD stage IIIb among other chronic medical conditions who presents to [facility] for evaluation after witnessed episode of syncope at his primary care physician's office on the same day of presentation. No acute overnight events; patient does endorse some right sided posterior neck pain that worsened overnight, suspects that this is positional from sleeping in the bed. Otherwise he has no specific complaints or concerns this morning. Review of Systems Review of Systems: Constitutional: denies fevers, chills, malaise, fatigue Cardiovascular: denies angina, palpitations, peripheral edema, orthopnea, platypnea Pulmonary: denies cough, pleuritic chest pain Gastrointestinal: denies nausea, emesis, dyspepsia, abdominal distension, constipation, diarrhea Genitourinary: denies dysuria, hematuria, urinary incontinence Neurologic: denies focal weakness, paresthesias or numbness, vision changes or diplopia, ataxia Musculoskeletal: Endorses right posterior neck strain as described above;denies arthralgias, progressive weakness Integumentary: denies new or developing rashes or lesions Physical Exam Physical Exam: General: Adult male in no acute distress Vital Signs: Reviewed HEENT: Normocephalic, atraumatic; pupils equally reactive to light, extraocular motions intact; moist mucous membranes Neck: No palpable lymphadenopathy; Right trapezial border of the posterior neck is tender to palpation and hypertonic compared to the left; no significantly noted restricted range of motion either active or passive Cardiovascular: Regular rate and rhythm with grade 2/6 systolic murmur best heard in the left second intercostal space parasternally with no rubs or gallops; S1 and S2 normal; bilateral radial and posterior tibial pulses 2+; trace bilateral lower extremity edema distal to the mid leg Gastrointestinal: Soft, nondistended Neurologic: CN II-XII grossly intact Results & Data Results & Data Vital Signs (Past 12 Hours) Vital Signs Temp Pulse Pulse Pulse Resp BP Pulse Ox 02/09/25 07:32 37.3 C 79 18 125/65 97 02/09/25 05:50 71 02/09/25 02:50 37.1 C 72 18 116/59 L 94 02/08/25 22:25 37.3 C 74 16 135/65 95 O2 Del Method 02/09/25 07:32 Room Air 02/09/25 05:50 02/09/25 02:50 Room Air 02/08/25 22:25 Room Air Laboratory Results 02/09/25 02/09/25 02/08/25 08:01 07:39 21:04 WBC RBC Hgb Hct MCV MCH MCHC RDW Std Deviation RDW Coeff of Karin Plt Count MPV Immature Gran % (Auto) Neut % (Auto) Lymph % (Auto) [place] % (Auto) Eos % (Auto) Baso % (Auto) Neut # (Auto) Lymph # (Auto) [place] # (Auto) Eos # (Auto) Baso # (Auto) Immature Gran # (Auto) Sodium 135 L Potassium 4.1 Chloride 105 Carbon Dioxide 23 Anion Gap 7 BUN 24 H Creatinine 1.42 H Est Cr Clr Drug Dosing 39.8 eGFR 49.34 BUN/Creatinine Ratio 16.9 Glucose 87 POC Glucose 102 H 131 H Calcium 8.7 Phosphorus 3.2 Magnesium 1.8 Total Bilirubin AST ALT Alkaline Phosphatase Troponin I High Sens Total Protein Albumin 3.7 Globulin Albumin/Globulin Ratio TSH 02/08/25 02/08/25 02/08/25 19:15 17:03 13:57 WBC 11.10 H RBC 4.25 L Hgb 13.1 L Hct 37.4 L MCV 88.0 MCH 30.8 MCHC 35.0 RDW Std Deviation 47.3 H RDW Coeff of Karin 14.8 H Plt Count 342 MPV 8.7 L Immature Gran % (Auto) 0.6 Neut % (Auto) 78.3 Lymph % (Auto) 12.4 [place] % (Auto) 8.0 Eos % (Auto) 0.4 Baso % (Auto) 0.3 Neut # (Auto) 8.69 H Lymph # (Auto) 1.38 [place] # (Auto) 0.89 H Eos # (Auto) 0.04 Baso # (Auto) 0.03 Immature Gran # (Auto) 0.07 Sodium 130 L Potassium 4.7 Chloride 97 L Carbon Dioxide 25 Anion Gap 8 BUN 25 H Creatinine 1.59 H Est Cr Clr Drug Dosing Not Reportable eGFR 43.07 BUN/Creatinine Ratio 15.7 Glucose 336 H* POC Glucose 202 H 241 H Calcium 9.7 Phosphorus Magnesium 1.9 Total Bilirubin 1.0 AST 12 L ALT 18 Alkaline Phosphatase 91 Troponin I High Sens 10.2 Total Protein 7.6 Albumin 4.4 Globulin 3.2 Albumin/Globulin Ratio 1.4 TSH 4.040 PG Care Time/CCT Total # of Minutes Spent Total Time Spent with Patient: Total time spent is greater than 50% in coordination of care (as documented) at patient's floor/unit and/or counseling patient: Coding Level of Care Code 57331 SUB INP/OBS CARE 235MIN Diagnoses Syncope, unspecified syncope type R55 Syncope type: unspecified Chronic heart failure with preserved ejection fraction (HFpEF) I50.32 Heart failure chronicity: chronic (1) Syncope Syncope type: unspecified Qualified Code(s): R55 - Syncope and collapse (2) Heart failure with preserved ejection fraction Heart failure chronicity: chronic Qualified Code(s): I50.32 - Chronic diastolic (congestive) heart failure
--- NOTE | 2025-02-09 09:19 | Cardiology Progress Note ---
Date of Service February 09, 2025 Assessment & Plan (1) Syncope: Plan: See below Present on Admission?: Yes Plan 84 yo man presenting with Syncope * CAD * Hx of CABG 02/2024 * LVEF 60% * TriFasicular Block * CKD * Symptoms - positional - worse with standing * On Flomax - has been on it for 10 years * No palpitations leading up to event * No known LEE * No ETOH * Initial Evaluation: * Troponin negative * Recent ECHO - mild * Electrolytes * QT 462 * No AV rom blocking agents * TSH 4.04 (02/08/2025) Concern for Bradycardia leading to Syncope * Will discuss with EP re: LINQ /Implantable Loop Recorder vs Zio * Check Orthostatics * K+ goal 4.5-5 * Mag goal >2 * LEE evaluation as an outpt * PT/OT consultation - walking oximeter * Carotid US (no clear carotid hypersensitivities) 60 min spent addressing challenges, educating and advancing daily plan of care Chevy Looney Admission and Anticipated Discharge Date Admission Date: February 08, 2025 Subjective Events Overnight: * Telemetry - sinus 70's * No pauses Subjective: * no complaints Review of Systems Review of Systems: All systems reviewed & are unremarkable except as noted in HPI & below Physical Exam Physical Exam: Obese No elevation in JVP Left Carotid Bruit S1S2 2/6 Systolic Murmur No C/C/E Results & Data Vital Signs (Past 12 Hours) Vital Signs Temp Pulse Pulse Pulse Resp BP Pulse Ox 02/09/25 07:32 37.3 C 79 18 125/65 97 02/09/25 05:50 71 02/09/25 02:50 37.1 C 72 18 116/59 L 94 02/08/25 22:25 37.3 C 74 16 135/65 95 O2 Del Method 02/09/25 07:32 Room Air 02/09/25 05:50 02/09/25 02:50 Room Air 02/08/25 22:25 Room Air Laboratory Results Cardiac Enzymes 02/08/25 Range/Units 13:57 AST 12 L (13-39) U/L Troponin I High Sens 10.2 (0-20) pg/ml CBC 02/08/25 Range/Units 13:57 WBC 11.10 H (4.8-10.8) K/ul RBC 4.25 L (4.70-6.10) M/uL Hgb 13.1 L (14.0-18.0) g/dl Hct 37.4 L (42.0-52.0) % Plt Count 342 (130-400) K/uL Neut # (Auto) 8.69 H (1.40-6.50) K/uL Lymph # (Auto) 1.38 (1.20-3.40) K/uL [place] # (Auto) 0.89 H (0.11-0.59) K/uL Eos # (Auto) 0.04 (0.00-0.50) K/uL Baso # (Auto) 0.03 (0.00-0.20) K/uL Comprehensive Metabolic Panel 02/08/25 02/09/25 Range/Units 13:57 07:39 Sodium 130 L 135 L (136-145) mmol/L Potassium 4.7 4.1 (3.5-5.1) mmol/L Chloride 97 L 105 (98-107) mmol/L Carbon Dioxide 25 23 (21-32) mmol/L BUN 25 H 24 H (6-23) mg/dl Creatinine 1.59 H 1.42 H (0.6-1.4) mg/dl Glucose 336 H* 87 (70-99(Fasting)) mg/dl Calcium 9.7 8.7 (8.6-10.3) mg/dl AST 12 L (13-39) U/L ALT 18 (7-52) U/L Alkaline Phosphatase 91 (34-104) U/L Total Protein 7.6 (6.0-8.3) gm/dl Albumin 4.4 3.7 (3.4-5.0) gm/dl Intake and Output 02/08/25 02/09/25 02/09/25 22:59 06:59 14:59 Intake Total 1250 / 1950 200 / 1950 Output Total 700 / 1125 425 / 1125 Balance 550 / 825 -225 / 825 Intake: IV 1000 / 1500 Sodium Chloride 0.9% 1,000 ml @ 1000 / 1000 999 mls/hr IV .Q1H1M ONE Rx#: [id number] Oral 250 / 450 200 / 450 Output: Urine 700 / 1125 425 / 1125 Other: Weight 84.1 kg 83.1 kg Weight Measurement Method Standing Scale Diagnostic Findings ECHocardiogram: 01-31-2025 * LVEF 60-65% * LVH * Mild Medications Administered Current Inpatient Medications Dextrose (Dextrose 50% 50 Ml Syringe) 25 - 50 ml IV UD PRN; Protocol PRN Reason: Hypoglycemia Protocol Stop: 03/10/25 16:50 Glucagon (Glucagon For Inj 1 Mg Vial) 1 mg SQ UD PRN; Protocol PRN Reason: Hypoglycemia Protocol Stop: 03/10/25 16:50 Glucose (Glucose 40% Gel 15 Gm Tube) 15 - 30 gm PO UD PRN; Protocol PRN Reason: Hypoglycemia Protocol Stop: 03/10/25 16:50 Glucose (Glucose 10 Tab/Tube) 4 - 8 tab PO UD PRN; Protocol PRN Reason: Hypoglycemia Protocol Stop: 03/10/25 16:50 Insulin Aspart (Insulin Aspart Per Unit Charge) 0 units SC ACHS STARLA Stop: 03/10/25 17:29 Last Admin: 02/08/25 21:19 Dose: Not Given Melatonin (Melatonin 3 Mg Tab) 3 mg PO HS PRN PRN Reason: Sleep Stop: 03/10/25 16:50 Miscellaneous (Carbohydrates For Hypoglycemia ) 15 - 30 gm PO UD PRN PRN Reason: Hypoglycemia Protocol Stop: 03/10/25 16:50 Miscellaneous Information (Pharmacy Glycemic Mgmt Consult) 1 each N/A UD PRN PRN Reason: Consult Stop: 03/10/25 16:50 PG Care Time/CCT Total # of Minutes Spent Total Time Spent with Patient: Total time spent is greater than 50% in coordination of care (as documented) at patient's floor/unit and/or counseling patient: Coding Level of Care Code 69976 SUB INP/OBS CARE 3/50MIN Diagnoses Syncope R55 Syncope type: unspecified (1) Syncope Syncope type: unspecified Qualified Code(s): R55 - Syncope and collapse
--- NOTE | 2025-02-09 09:30 | Cardiology Consultation ---
Date of Consultation February 09, 2025 Assessment & Plan (1) Syncope: (2) Hx of CABG: (3) Heart failure with preserved ejection fraction: (4) ASCVD (arteriosclerotic cardiovascular disease): (5) Status post aorto-coronary artery bypass graft: (6) Hypertension: (7) Dyslipidemia, goal LDL below 70: History of Present Illness Reason for Consultation: Recurrent syncope without prodromal symptoms Requesting Physician: Dr. Steevn Storey DO Attending Physician: Dr. Steven Storey DO History of Present Illness Problem List: ASCVD status post CABG X 4 [place] to LAD SVG to OM1, OM2, [place] [place] Bifascicular heart block Hypertension Dyslipidemia Type 2 diabetes mellitus COPD with emphysema Tobacco use disorder BPH Allergies Allergy/AdvReac Type Severity Reaction Status Date / Time lisinopril AdvReac Mild Dizziness Verified 02/08/25 13:02 metformin AdvReac Diarrhea Verified 02/08/25 16:04 Home Medications Medication Instructions Recorded Confirmed Type aspirin 325 mg tablet 325 mg PO HS 02/10/19 02/08/25 History lancets 33 gauge (OneTouch Delica #200 ea 11/20/22 02/08/25 Rx Plus Lancet) insulin degludec 200 unit/mL (3 40 - 50 unit (0.2 - 0.25 mL) 12/28/23 02/08/25 Rx mL) subcutaneous pen (Tresiba subcut BID #45 mL FlexTouch U-200 insulin) atorvastatin 20 mg tablet 20 mg PO HS #90 tabs 03/16/24 02/08/25 Rx tamsulosin 0.4 mg capsule 0.4 mg PO DAILY #90 caps 12/15/24 02/08/25 Rx blood sugar diagnostic (OneTouch #200 strips 01/05/25 02/08/25 Rx Ultra Test strips) blood-glucose meter (OneTouch #1 ea 02/02/25 02/08/25 Rx Ultra2 Meter) blood-glucose sensor (FreeStyle #2 ea 02/02/25 02/08/25 Rx Roxie 3 Sensor device) blood-glucose,metal buffer,cont #1 ea 02/02/25 02/08/25 Rx (FreeStyle Roxie 3 [place]) blood-glucose sensor (FreeStyle #2 ea 02/06/25 02/08/25 Rx Roxie 3 Plus Sensor device) docusate sodium 100 mg capsule 100 mg PO BID 02/08/25 02/08/25 History Patient History Medical History Multi-vessel coronary artery stenosis Hypertension Bifascicular bundle branch block Diastolic dysfunction Murmur Obesity Osteoarthritis BPH (benign prostatic hyperplasia) Diabetes mellitus, type 2 IDDM Coronary artery disease 100% RCA with collateralization per cardio Hyperlipidemia Ch DVT/embl low ext NOS Diverticulosis of colon Surgical History Status post total shoulder arthroplasty Left- done 03/25/[address] Bright History of repair of rotator cuff RT Hx of vasectomy History of colonoscopy History of tooth extraction History of tonsillectomy History of cardiac cath 7 YEARS AGO Family History Father Heart murmur Acute myocardial infarction Cardiac disorder Myocardial infarction Denies family history of Ovarian cancer Prostate cancer Breast cancer Colorectal cancer Social History Smoking Status: Former smoker Tobacco Type: Cigarettes Age Started Using Tobacco: 8; Age Quit Using Tobacco: 62; packs per day: 1; Second Hand Exposure: No; Do You Dip or Chew Tobacco: No; Hx Alcohol Use: No Hx Substance Use: No Preferred Language: Setswana Communication Ability: Effective Visual Impairment: No Limitations Hearing Ability: Normal Reproductive Surgeon Required: No Beliefs That Will Affect Care: None marital status: / Current Living Situation: Alone current occupational status: retired How many Children do You have: 2 Feels Safe at Home: Yes Childhood Exposure to Second-Hand Smoke: Yes Diet: regular caffeine: Yes during the past year weight has: remained stable Dental Care, Regularly: No Physical Activity Frequency: Does not Exercise Seatbelt Use: never Sunscreen Use: No Assistive Devices: Denture - Upper and Denture - Lower Review of Systems 2 Review of Systems: Complete Review of Systems is as stated above, negative, or noncontributory Results & Data Vital Signs (Past 12 Hours) Vital Signs Temp Pulse Pulse Pulse Resp BP Pulse Ox 02/09/25 07:32 37.3 C 79 18 125/65 97 02/09/25 05:50 71 02/09/25 02:50 37.1 C 72 18 116/59 L 94 02/08/25 22:25 37.3 C 74 16 135/65 95 O2 Del Method 02/09/25 07:32 Room Air 02/09/25 05:50 02/09/25 02:50 Room Air 02/08/25 22:25 Room Air Laboratory Results Cardiac Enzymes 02/08/25 Range/Units 13:57 AST 12 L (13-39) U/L Troponin I High Sens 10.2 (0-20) pg/ml CBC 02/08/25 Range/Units 13:57 WBC 11.10 H (4.8-10.8) K/ul RBC 4.25 L (4.70-6.10) M/uL Hgb 13.1 L (14.0-18.0) g/dl Hct 37.4 L (42.0-52.0) % Plt Count 342 (130-400) K/uL Neut # (Auto) 8.69 H (1.40-6.50) K/uL Lymph # (Auto) 1.38 (1.20-3.40) K/uL [place] # (Auto) 0.89 H (0.11-0.59) K/uL Eos # (Auto) 0.04 (0.00-0.50) K/uL Baso # (Auto) 0.03 (0.00-0.20) K/uL Comprehensive Metabolic Panel 02/08/25 02/09/25 Range/Units 13:57 07:39 Sodium 130 L 135 L (136-145) mmol/L Potassium 4.7 4.1 (3.5-5.1) mmol/L Chloride 97 L 105 (98-107) mmol/L Carbon Dioxide 25 23 (21-32) mmol/L BUN 25 H 24 H (6-23) mg/dl Creatinine 1.59 H 1.42 H (0.6-1.4) mg/dl Glucose 336 H* 87 (70-99(Fasting)) mg/dl Calcium 9.7 8.7 (8.6-10.3) mg/dl AST 12 L (13-39) U/L ALT 18 (7-52) U/L Alkaline Phosphatase 91 (34-104) U/L Total Protein 7.6 (6.0-8.3) gm/dl Albumin 4.4 3.7 (3.4-5.0) gm/dl Intake and Output 02/08/25 02/09/25 02/09/25 22:59 06:59 14:59 Intake Total 1250 / 1950 200 / 1950 Output Total 700 / 1125 425 / 1125 Balance 550 / 825 -225 / 825 Intake: IV 1000 / 1500 Sodium Chloride 0.9% 1,000 ml @ 1000 / 1000 999 mls/hr IV .Q1H1M ONE Rx#: [id number] Oral 250 / 450 200 / 450 Output: Urine 700 / 1125 425 / 1125 Other: Weight 84.1 kg 83.1 kg Weight Measurement Method Standing Scale Diagnostic Findings EKG: Sinus rhythm at 70 bpm with a first degree AV block, RBBB, LABF, Bifascicular block, LVH. diffuse T wave abnormality. QTc 462 ms. Telemetry: Sinus rhythm in the 70's PG Care Time/CCT Total # of Minutes Spent Total Time Spent with Patient: Total time spent is greater than 50% in coordination of care (as documented) at patient's floor/unit and/or counseling patient: Coding Level of Care Code 06243 IN/OBS CONSULT LVL 5,80M Diagnoses Syncope R55 Syncope type: unspecified Hx of CABG Z95.1 Chronic heart failure with preserved ejection fraction (HFpEF) I50.32 Heart failure chronicity: chronic ASCVD (arteriosclerotic cardiovascular disease) I25.10 Status post aorto-coronary artery bypass graft Z95.1 Hypertension I10 Dyslipidemia, goal LDL below 70 E78.5 (1) Syncope Syncope type: unspecified Qualified Code(s): R55 - Syncope and collapse (3) Heart failure with preserved ejection fraction Heart failure chronicity: chronic Qualified Code(s): I50.32 - Chronic diastolic (congestive) heart failure
[2025-02-09] MEDS: LANTUS PER UNIT CHARGE SC ONE (13:49)
--- NOTE | 2025-02-09 15:35 | Pharmacy Report ---
Pharmacy Glycemic Short Note 2 - Date of Service February 09, 2025 - Glycemic Short BSG Results (Last 24 hours): 02/08/25 02/08/25 02/08/25 17:03 19:15 21:04 Glucose POC Glucose 241 H 202 H 131 H 02/09/25 02/09/25 02/09/25 07:39 08:01 11:58 Glucose 87 POC Glucose 102 H 203 H OUTPATIENT ANTIDIABETIC REGIMEN: * Tresiba 46 units SC BID A1c = 9.1% (12/16/24) ASSESSMENT: * Ronn is a 84 yo T2DM with PMH significant for heart failure with preserved ejection fraction and previous coronary artery bypass graft, CKD stage IIIb. He has been admitted for evaluation of syncope. Severe hyperglycemia on presentation. Per patient last dose of basal insulin was 02/07 @ 1999. * Reported home insulin usage of ~92 units/day (all basal). Will attempt to split this into a 50% bolus + 50% basal regimen. * Will utilize basal dosing per BSG scale until needs are better known. * Will tighten CF and CR based on trend from 102 -> 203 mg/dL at lunch. PLAN FOR INPATIENT GLYCEMIC CONTROL: * Basal insulin * Lantus 20-25-30 units SQ BID (20 units for < 140, 25 units for 140-200, 30 units for > 200) * Bolus insulin * NovoLog per scale ACHS or Q6hrs while NPO * Goal Range: Low 110 mg/dL - High 140 mg/dL * Correction Factor: 25 mg/dL/unit * Nutritional / Prandial insulin per carb ratio of 1 unit per 8 grams CHO consumed
--- NOTE | 2025-02-09 15:54 | Ultrasound Report ---
CAROTID ARTERY ULTRASOUND CLINICAL HISTORY: Right bruit. COMPARISON STUDY: None. TECHNIQUE: Real-time, grayscale, and color Doppler sonography of the carotid and vertebral arteries w as performed. Images were viewed in the transverse and longitudinal planes. FINDINGS: There is moderate atherosclerotic plaque within the carotid bifurcations. Velocity measurements are l isted below. COMMON CAROTID PEAK SYSTOLIC VELOCITY (CM/S): RIGHT 62 LEFT 83 ICA PEAK SYSTOLIC VELOCITY (CM/S): RIGHT 76 LEFT 59 Systolic ratios between the internal to common carotid arteries are normal. Antegrade flow is seen in the vertebral arteries. The external carotid arteries are patent. IMPRESSION: Moderate atherosclerotic plaque without evidence for a hemodynamically stiffness stenosi s. ACT 112: Negative or not required by law. Electronically signed by: Tip Liu M.D. 02/09/2025 3:52 PM
[2025-02-09] MEDS: LANTUS PER UNIT CHARGE SC SCH (21:08)
[2025-02-10 07:07] LABS: Anion Gap 8.0 (3-11); Blood Urea Nitrogen 23.0 mg/dl (6-23); Calcium 8.5 mg/dl (8.6-10.3); Carbon Dioxide 24.0 mmol/L (21-32); Chloride 101.0 mmol/L (98-107); Creatinine Clr Calc Pharmacy 36.7 ml/min; Glucose 103.0 mg/dl (70-99(Fasting)); Magnesium 1.8 mg/dl (1.7-2.4); Potassium 4.1 mmol/L (3.5-5.1); Sodium 133.0 mmol/L (136-145)
--- NOTE | 2025-02-10 07:53 | Cardiology Progress Note ---
Date of Service February 10, 2025 Assessment & Plan (1) Syncope: Plan: See below Plan 84 yo man presenting with Syncope * CAD * Hx of CABG 02/2024 * LVEF 60% * TriFasicular Block * CKD * Symptoms - positional - worse with standing * On Flomax - has been on it for 10 years * No palpitations leading up to event * No known LEE * No ETOH * Initial Evaluation: * Troponin negative * Recent ECHO - mild * Electrolytes * QT 462 * No AV rom blocking agents * TSH 4.04 (02/08/2025) Concern for Bradycardia leading to Syncope * Orthostatics - as per patient, SBP dropped >30 mmHg with standing; if corroborated, would explain symptoms * May have autonomic dysfunction from long-standing Diabetes * K+ goal 4.5-5 * KDUR 40 meq po x 1 * Mag goal >2 * 4 gm of Magnesium Sulfate IV x 1 * LEE evaluation as an outpt * PT/OT consultation * Decrease Flomax dose * ZioPatch as an outpt in clinic * Carotid US (no clear carotid hypersensitivities) - + carotid atherosclerosis; no critical stenosis reported * Follow up with [facility] in [facility] * Please call back with any additional questions 50 min spent addressing challenges, educating and advancing daily plan of care Chevy Looney Admission and Anticipated Discharge Date Admission Date: February 08, 2025 Subjective Events Overnight: Subjective: Review of Systems Review of Systems: All systems reviewed & are unremarkable except as noted in HPI & below Physical Exam Physical Exam: Obese No elevation in JVP Left Carotid Bruit S1S2 2/6 Systolic Murmur No C/C/E Results & Data Vital Signs (Past 12 Hours) Vital Signs Temp Pulse Pulse Resp BP Pulse Ox O2 Del Method 02/10/25 07:36 36.7 C 71 16 120/54 L 95 Room Air 02/10/25 03:08 36.7 C 75 16 118/61 95 Room Air 02/09/25 22:52 37.3 C 75 16 118/55 L 94 Room Air 02/09/25 21:40 66 02/09/25 21:15 Room Air 02/09/25 19:53 37.6 C H 70 16 139/61 96 Room Air Laboratory Results Comprehensive Metabolic Panel 02/09/25 02/10/25 Range/Units 07:39 05:27 Sodium 135 L 133 L (136-145) mmol/L Potassium 4.1 4.1 (3.5-5.1) mmol/L Chloride 105 101 (98-107) mmol/L Carbon Dioxide 23 24 (21-32) mmol/L BUN 24 H 23 (6-23) mg/dl Creatinine 1.42 H 1.54 H (0.6-1.4) mg/dl Glucose 87 103 H (70-99(Fasting)) mg/dl Calcium 8.7 8.5 L (8.6-10.3) mg/dl Albumin 3.7 3.4 (3.4-5.0) gm/dl Intake and Output 02/09/25 02/10/25 02/10/25 22:59 06:59 14:59 Intake Total 480 / 580 100 / 580 Output Total 975 / 1525 200 / 1525 Balance -495 / -945 -100 / -945 Intake: Oral 480 / 580 100 / 580 Output: Urine 975 / 1525 200 / 1525 Other: Weight 83.3 kg Diagnostic Findings Carotid US: 02-10-2025 IMPRESSION: Moderate atherosclerotic plaque without evidence for a hemodynamically stiffness stenosis. Medications Administered Current Inpatient Medications Dextrose (Dextrose 50% 50 Ml Syringe) 25 - 50 ml IV UD PRN; Protocol PRN Reason: Hypoglycemia Protocol Stop: 03/10/25 16:50 Glucagon (Glucagon For Inj 1 Mg Vial) 1 mg SQ UD PRN; Protocol PRN Reason: Hypoglycemia Protocol Stop: 03/10/25 16:50 Glucose (Glucose 40% Gel 15 Gm Tube) 15 - 30 gm PO UD PRN; Protocol PRN Reason: Hypoglycemia Protocol Stop: 03/10/25 16:50 Glucose (Glucose 10 Tab/Tube) 4 - 8 tab PO UD PRN; Protocol PRN Reason: Hypoglycemia Protocol Stop: 03/10/25 16:50 Insulin Aspart (Insulin Aspart Per Unit Charge) 0 units SC ACHS STARLA Stop: 03/10/25 17:29 Last Admin: 02/09/25 21:09 Dose: 3 units Insulin Glargine (Lantus Per Unit Charge) 0 units SC BID STARLA; Protocol Stop: 03/11/25 20:59 Last Admin: 02/09/25 21:08 Dose: 30 units Melatonin (Melatonin 3 Mg Tab) 3 mg PO HS PRN PRN Reason: Sleep Stop: 03/10/25 16:50 Miscellaneous (Carbohydrates For Hypoglycemia ) 15 - 30 gm PO UD PRN PRN Reason: Hypoglycemia Protocol Stop: 03/10/25 16:50 Miscellaneous Information (Pharmacy Glycemic Mgmt Consult) 1 each N/A UD PRN PRN Reason: Consult Stop: 03/10/25 16:50 PG Care Time/CCT Total # of Minutes Spent Total Time Spent with Patient: Total time spent is greater than 50% in coordination of care (as documented) at patient's floor/unit and/or counseling patient: Coding Level of Care Code 31644 SUB INP/OBS CARE 3/50MIN Diagnoses Syncope R55 Syncope type: unspecified (1) Syncope Syncope type: unspecified Qualified Code(s): R55 - Syncope and collapse
--- NOTE | 2025-02-10 16:52 | Hospitalist Progress Note ---
Date of Service February 10, 2025 Assessment & Plan (1) Syncope: (2) Heart failure with preserved ejection fraction: Plan In summary this is an 84-year-old male who presents after an episode of witnessed syncope for which he was recently admitted in the past 14 days to this medical facility. #Syncope They deny any prodromal nausea, diaphoresis, visual changes, flushing sensation, atypical neurologic symptoms, or incontinence. This is primarily occurring after he stands and ambulates for a short distance. Pertinent comorbidities include significant coronary artery disease with prior CABG, heart failure with preserved ejection fraction. The patient's initial EKG is not concerning for any acute coronary syndrome, nor the experiencing any anginal equivalent symptoms.Orthostatic vital signs were obtained on the evening of patient's initial admission and were noted to be positive however the patient was not symptomatic in any degree. Given the lack of increased heart rate associated with his decreased blood pressure upon standing, this does suggest that he may have a degree of autonomic instability/insufficiency however the lack of associated symptoms and his absence of prodromal symptoms at the time of his actual syncopal episodes is concerning for a primarily conductive cause. Maintain continuous environmental monitoring specialist Cardiology recommends Zio patch Significant orthostatic hypotension today I will hydrate him gently and repeat orthostatic vital signs tomorrow Follow daily renal function panel and magnesium TTE was recently obtained, without significant dynamic change. Given the absence of anginal equivalents and normal EKG, it is unlikely to have a si gnificant change in the dynamics of their cardiac function. No indication to repeat this study at this time Admission and Anticipated Discharge Date Admission Date: February 08, 2025 Subjective Patient says that he had a 37 point drop in his blood pressure when he stood up earlier today. He said that he felt dizzy at that point. Review of Systems Review of Systems: All systems reviewed & are unremarkable except as noted in Subjective Physical Exam Physical Exam: General: Awake, conversant Heart: S1, S2/regular rate and rhythm, no murmur rubs or gallops Lungs: Clear to auscultation bilaterally. Normal effort Abdomen: Soft/nontender/nondistended. No hepatosplenomegaly Extremities: No clubbing/cyanosis. No edema Behavior: Appropriate, cooperative Results & Data Results & Data Vital Signs (Past 12 Hours) Vital Signs Temp Pulse Pulse Resp BP Pulse Ox O2 Del Method 02/10/25 15:59 37.1 C 69 20 144/62 H 96 Room Air 02/10/25 13:01 70 02/10/25 12:01 37.0 C 69 20 131/61 95 Room Air 02/10/25 07:36 36.7 C 71 16 120/54 L 95 Room Air 02/10/25 05:38 76 Laboratory Results Abnormal lab results 02/09/25 02/10/25 02/10/25 Range/Units 20:18 05:27 08:01 Sodium 133 L (136-145) mmol/L Creatinine 1.54 H (0.6-1.4) mg/dl Glucose 103 H (70-99(Fasting)) mg/dl POC Glucose 215 H 117 H (70-99) mg/dl Calcium 8.5 L (8.6-10.3) mg/dl 02/10/25 Range/Units 12:16 Sodium (136-145) mmol/L Creatinine (0.6-1.4) mg/dl Glucose (70-99(Fasting)) mg/dl POC Glucose 190 H (70-99) mg/dl Calcium (8.6-10.3) mg/dl Diagnostic Findings Chest X-Ray 02/08/25 14:10 XR chest 1V portable CLINICAL HISTORY: eval for syncope COMPARISON STUDY: 01/30/2025 FINDINGS: Stable CABG. Heart size and pulmonary vasculature are normal. No consolidation or pleural effusion. No pneumothorax. IMPRESSION: No acute findings seen. ACT 112: Negative or not required by law. Electronically signed by: Camilo Otero M.D. 02/08/2025 2:34 PM Carotid Doppler Study 02/09/25 15:30 CAROTID ARTERY ULTRASOUND CLINICAL HISTORY: Right bruit. COMPARISON STUDY: None. TECHNIQUE: Real-time, grayscale, and color Doppler sonography of the carotid and vertebral arteries was performed. Images were viewed in the transverse and longitudinal planes. FINDINGS: There is moderate atherosclerotic plaque within the carotid bifurcations. Velocity measurements are listed below. COMMON CAROTID PEAK SYSTOLIC VELOCITY (CM/S): RIGHT 62 LEFT 83 ICA PEAK SYSTOLIC VELOCITY (CM/S): RIGHT 76 LEFT 59 Systolic ratios between the internal to common carotid arteries are normal. Antegrade flow is seen in the vertebral arteries. The external carotid arteries are patent. IMPRESSION: Moderate atherosclerotic plaque without evidence for a hemodynamically stiffness stenosis. ACT 112: Negative or not required by law. Electronically signed by: Tip Liu M.D. 02/09/2025 3:52 PM PG Care Time/CCT Total # of Minutes Spent Total Time Spent with Patient: Total time spent is greater than 50% in coordination of care (as documented) at patient's floor/unit and/or counseling patient: Coding Level of Care Code 72457 SUB INP/OBS CARE 2/35MIN Diagnoses Syncope, unspecified syncope type R55 Syncope type: unspecified Chronic heart failure with preserved ejection fraction (HFpEF) I50.32 Heart failure chronicity: chronic (1) Syncope Syncope type: unspecified Qualified Code(s): R55 - Syncope and collapse (2) Heart failure with preserved ejection fraction Heart failure chronicity: chronic Qualified Code(s): I50.32 - Chronic diastolic (congestive) heart failure
[2025-02-10] MEDS: SODIUM CHLORIDE 0.9% 1,000 ML IV SCH (17:02)
[2025-02-10] MEDS: DOCUSATE SODIUM 100 MG CAP PO SCH (21:38)
[2025-02-10] MEDS: POLYETHYLENE (MIRALAX) 17 GM PACK PO PRN (21:46)
--- NOTE | 2025-02-11 06:09 | Electrocardiogram Report ---
Test Reason : Blood Pressure : */* mmHG Vent. Rate : 70 BPM Atrial Rate : 70 BPM P-R Int : 240 ms QRS Dur : 144 ms QT Int : 428 ms P-R-T Axes : 40 -70 54 degrees QTcB Int : 462 ms Sinus rhythm with 1st degree A-V block Right bundle branch block Left anterior fascicular block Bifascicular block Minimal voltage criteria for LVH, may be normal variant ( R in aVL ) T wave abnormality, consider lateral ischemia Abnormal ECG When compared with ECG of 30-Jan-2025 15:12, Nonspecific T wave abnormality has replaced inverted T waves in Inferior leads Confirmed by Hadley Harrison ([id number]) on 02/11/2025 6:08:45 AM Referred By: REFERRED SELF Confirmed By: Hadley Harrison
[2025-02-11 06:38] LABS: Anion Gap 6.0 (3-11); Blood Urea Nitrogen 24.0 mg/dl (6-23); Calcium 8.2 mg/dl (8.6-10.3); Carbon Dioxide 25.0 mmol/L (21-32); Chloride 103.0 mmol/L (98-107); Creatinine Clr Calc Pharmacy 37.0 ml/min; Glucose 107.0 mg/dl (70-99(Fasting)); Magnesium 2.0 mg/dl (1.7-2.4); Potassium 4.0 mmol/L (3.5-5.1); Sodium 134.0 mmol/L (136-145)
[2025-02-11] MEDS: MIDODRINE HCL 2.5 MG TAB PO SCH (11:13)
--- NOTE | 2025-02-11 13:31 | Hospitalist Progress Note ---
Date of Service February 11, 2025 Assessment & Plan (1) Syncope: (2) Heart failure with preserved ejection fraction: Plan In summary this is an 84-year-old male who presents after an episode of witnessed syncope for which he was recently admitted in the past 14 days to this medical facility. #Syncope He denied any prodromal nausea, diaphoresis, visual changes, flushing sensation, atypical neurologic symptoms, or incontinence. This is primarily occurring after he stands and ambulates for a short distance. Pertinent comorbidities include significant coronary artery disease with prior CABG, heart failure with preserved ejection fraction. The patient's initial EKG is not concerning for any acute coronary syndrome, nor the experiencing any anginal equivalent symptoms.Orthostatic vital signs were obtained on the evening of patient's initial admission and were noted to be positive however the patient was not symptomatic in any degree. Given the lack of increased heart rate associated with his decreased blood pressure upon standing, this does suggest that he may have a degree of autonomic instability/insufficiency however the lack of associated symptoms and his absence of prodromal symptoms at the time of his actual syncopal episodes is concerning for a primarily conductive cause. Maintain continuous cardiac specialist Cardiology recommends Zio patch Significant orthostatic hypotension 02/10 and 02/11. No improvement with hydration Start midodrine Recheck orthostatic vital signs tomorrow Follow daily renal function panel and magnesium TTE was recently obtained, without significant dynamic change. Given the absence of anginal equivalents and normal EKG, it is unlikely to have a significant change in the dynamics of their cardiac function. No indication to repeat this study at this time CKD stage III Diabetes mellitus type 2 Longstanding Could be complicated by autonomic neuropathy Admission and Anticipated Discharge Date Admission Date: February 10, 2025 Subjective Patient says that he does not feel dizzy today. He did not feel dizzy when they were checking his orthostatic vital signs either. Although there was an orthostatic drop. He denies any chest pain or shortness of breath Review of Systems Review of Systems: All systems reviewed & are unremarkable except as noted in Subjective Physical Exam Physical Exam: General: Awake, conversant Heart: S1, S2/regular rate and rhythm, no murmur rubs or gallops Lungs: Clear to auscultation bilaterally. Normal effort Abdomen: Soft/nontender/nondistended. No hepatosplenomegaly Extremities: No clubbing/cyanosis. No edema Behavior: Appropriate, cooperative Results & Data Results & Data Vital Signs (Past 12 Hours) Vital Signs Temp Pulse Pulse Resp BP Pulse Ox O2 Del Method 02/11/25 11:30 36.6 C 62 16 145/61 H 95 Room Air 02/11/25 08:16 36.7 C 63 16 122/63 95 Room Air 02/11/25 06:16 64 02/11/25 03:34 36.8 C 73 16 125/64 95 Room Air Laboratory Results Abnormal lab results 02/10/25 02/10/25 02/11/25 Range/Units 16:53 20:18 06:05 Sodium 134 L (136-145) mmol/L BUN 24 H (6-23) mg/dl Creatinine 1.53 H (0.6-1.4) mg/dl Glucose 107 H (70-99(Fasting)) mg/dl POC Glucose 164 H 242 H (70-99) mg/dl Calcium 8.2 L (8.6-10.3) mg/dl Albumin 3.3 L (3.4-5.0) gm/dl 02/11/25 02/11/25 Range/Units 08:05 12:04 Sodium (136-145) mmol/L BUN (6-23) mg/dl Creatinine (0.6-1.4) mg/dl Glucose (70-99(Fasting)) mg/dl POC Glucose 118 H 191 H (70-99) mg/dl Calcium (8.6-10.3) mg/dl Albumin (3.4-5.0) gm/dl PG Care Time/CCT Total # of Minutes Spent Total Time Spent with Patient: Total time spent is greater than 50% in coordination of care (as documented) at patient's floor/unit and/or counseling patient: Coding Level of Care Code 43060 SUB INP/OBS CARE 2/35MIN Diagnoses Syncope, unspecified syncope type R55 Syncope type: unspecified Chronic heart failure with preserved ejection fraction (HFpEF) I50.32 Heart failure chronicity: chronic (1) Syncope Syncope type: unspecified Qualified Code(s): R55 - Syncope and collapse (2) Heart failure with preserved ejection fraction Heart failure chronicity: chronic Qualified Code(s): I50.32 - Chronic diastolic (congestive) heart failure
[2025-02-11 19:55] VITALS: RESP 18
[2025-02-12 06:00] LABS: Anion Gap 6.0 (3-11); Blood Urea Nitrogen 24.0 mg/dl (6-23); Calcium 8.3 mg/dl (8.6-10.3); Carbon Dioxide 25.0 mmol/L (21-32); Chloride 108.0 mmol/L (98-107); Creatinine Clr Calc Pharmacy 42.9 ml/min; Glucose 120.0 mg/dl (70-99(Fasting)); Magnesium 2.1 mg/dl (1.7-2.4); Potassium 4.0 mmol/L (3.5-5.1); Sodium 139.0 mmol/L (136-145)
--- NOTE | 2025-02-12 10:36 | Hospitalist Progress Note ---
Date of Service February 12, 2025 Assessment & Plan (1) Syncope: (2) Heart failure with preserved ejection fraction: Plan In summary this is an 84-year-old male who presents after an episode of witnessed syncope for which he was recently admitted in the past 14 days to this medical facility. #Syncope He denied any prodromal nausea, diaphoresis, visual changes, flushing sensation, atypical neurologic symptoms, or incontinence. This is primarily occurring after he stands and ambulates for a short distance. Pertinent comorbidities include significant coronary artery disease with prior CABG, heart failure with preserved ejection fraction. The patient's initial EKG is not concerning for any acute coronary syndrome, nor the experiencing any anginal equivalent symptoms.Orthostatic vital signs were obtained on the evening of patient's initial admission and were noted to be positive however the patient was not symptomatic in any degree. Given the lack of increased heart rate associated with his decreased blood pressure upon standing, this does suggest that he may have a degree of autonomic instability/insufficiency however the lack of associated symptoms and his absence of prodromal symptoms at the time of his actual syncopal episodes is concerning for a primarily conductive cause. Maintain continuous milieu therapist TTE was recently obtained, without significant dynamic change. Given the absence of anginal equivalents and normal EKG, it is unlikely to have a significant change in the dynamics of their cardiac function. No indication to repeat this study at this time Cardiology recommends Zio patch Significant orthostatic hypotension 02/10 and 02/11. No improvement with hydration Started midodrine Blood pressure 02/12 is still dropping with positional change but systolics staying above 100. Patient is less symptomatic Ordered SCDs 02/12. Repeat orthostatic vital signs 02/13. Follow daily renal function panel and magnesium CKD stage III Diabetes mellitus type 2 Longstanding Could be complicated by autonomic neuropathy leading to orthostatic hypotension and syncope Disposition: Likely discharge on 02/13 if orthostatic vital signs are improved after midodrine and SCDs. Will need Zio patch arranged at the time of discharge Admission and Anticipated Discharge Date Admission Date: February 10, 2025 Subjective Patient feels well. Says that he had a drop in his blood pressure but he did not feel dizzy today. Review of Systems Review of Systems: All systems reviewed & are unremarkable except as noted in Subjective Physical Exam Physical Exam: General: Awake, conversant Heart: S1, S2/regular rate and rhythm, no murmur rubs or gallops Lungs: Clear to auscultation bilaterally. Normal effort Abdomen: Soft/nontender/nondistended. No hepatosplenomegaly Extremities: No clubbing/cyanosis. No edema Behavior: Appropriate, cooperative Results & Data Results & Data Vital Signs (Past 12 Hours) Vital Signs Temp Pulse Pulse Resp BP Pulse Ox O2 Del Method 02/12/25 08:26 36.3 C L 55 L 18 97 Room Air 02/12/25 07:07 53 L 02/12/25 03:11 36.8 C 59 L 18 123/66 96 Room Air PG Care Time/CCT Total # of Minutes Spent Total Time Spent with Patient: Total time spent is greater than 50% in coordination of care (as documented) at patient's floor/unit and/or counseling patient: Coding Level of Care Code 03656 SUB INP/OBS CARE 2/35MIN Diagnoses Syncope, unspecified syncope type R55 Syncope type: unspecified Chronic heart failure with preserved ejection fraction (HFpEF) I50.32 Heart failure chronicity: chronic (1) Syncope Syncope type: unspecified Qualified Code(s): R55 - Syncope and collapse (2) Heart failure with preserved ejection fraction Heart failure chronicity: chronic Qualified Code(s): I50.32 - Chronic diastolic (congestive) heart failure
[2025-02-13 08:16] VITALS: PULSE 57; TEMP 97.5; O2SAT 98
[2025-02-13 08:24] LABS: Anion Gap 6.0 (3-11); Blood Urea Nitrogen 17.0 mg/dl (6-23); Calcium 8.3 mg/dl (8.6-10.3); Carbon Dioxide 25.0 mmol/L (21-32); Chloride 110.0 mmol/L (98-107); Creatinine Clr Calc Pharmacy 48.6 ml/min; Glucose 81.0 mg/dl (70-99(Fasting)); Magnesium 2.0 mg/dl (1.7-2.4); Potassium 3.9 mmol/L (3.5-5.1); Sodium 141.0 mmol/L (136-145)
--- NOTE | 2025-02-13 08:45 | Pharmacy Report ---
Pharmacy Glycemic Short Note 2 - Date of Service February 13, 2025 - Glycemic Short BSG Results (Last 24 hours): 02/12/25 02/12/25 02/12/25 12:10 17:02 20:27 Glucose POC Glucose 153 H 98 100 H 02/13/25 02/13/25 07:13 07:57 Glucose 81 POC Glucose 83 OUTPATIENT ANTIDIABETIC REGIMEN: * Tresiba 46 units SC BID A1c = 9.1% (12/16/24) ASSESSMENT: 02/13/25: * Blood sugars reasonably well-controlled over past 72 hours, but overall trend has been lower yesterday into this morning * Receiving ~65-80 units of insulin/day * Fasting blood sugar of 83 mg/dL this morning - changing from BID to HS basal today 02/09/25: * Ronn is a 84 yo T2DM with PMH significant for heart failure with preserved ejection fraction and previous coronary artery bypass graft, CKD stage IIIb. He has been admitted for evaluation of syncope. Severe hyperglycemia on presentation. Per patient last dose of basal insulin was 02/07 @ 1999. * Reported home insulin usage of ~92 units/day (all basal). Will attempt to split this into a 50% bolus + 50% basal regimen. * Will utilize basal dosing per BSG scale until needs are better known. * Will tighten CF and CR based on trend from 102 -> 203 mg/dL at lunch. PLAN FOR INPATIENT GLYCEMIC CONTROL: * Basal insulin * Lantus HS TBD * Bolus insulin * NovoLog per scale ACHS or Q6hrs while NPO * Goal Range: Low 110 mg/dL - High 150 mg/dL * Correction Factor: 30 mg/dL/unit * Nutritional / Prandial insulin per carb ratio of 1 unit per 7 grams CHO consumed
--- NOTE | 2025-02-13 09:29 | Discharge Summary ---
Discharge Summary Date of Service February 13, 2025 Principal Dx & Hospital Course #1 = Principal Diagnosis (1) Syncope: (2) Heart failure with preserved ejection fraction: Plan In summary this is an 84-year-old male who presents after an episode of witnessed syncope at his PCP office on 02/08. Recent [place] hospitalization 01/30 - 02/01 for similar. Day of discharge 02/13: Mildly bradycardic at 57 bpm; mildly hypertensive at 159/78; vitals otherwise stable. Patient reports he is in good spirits this morning. He did wake up multiple times to use the bathroom overnight, but reports no episodes of dizzines s/lightheadedness when getting up to use the bathroom. No additional episodes of syncope in the hospital. He reports he slept okay, and has been urinating fairly frequently even though he is no longer taking tamsulosin. Patient feels he is ready to return home at this time. His only new complaint this morning, is that his left eye was itchy overnight, and he has been rubbing it, and now it is very red. It has also been watering overnight. No headaches, nausea, photophobia, or purulent drainage from the eye. Discussed with patient that this is likely an allergic versus viral conjunctivitis, and when offered eyedrops, patient declined. Patient believes that the midodrine helped significantly with his lightheadedness when standing. No reported side effects after taking. He also reports that stopping the tamsulosin helped. ROS: Patient endorses increased urinary frequency (which he attributes to IV fluids) Patient denies fever, chills, night sweats, dizziness/lightheadedness when walking to the bathroom, headaches, photophobia, changes in vision, chest pain, chest palpitations, SOB, cough, abdominal pain, N/V/D, burning with urination, blood in the urine or stool, or numbness or tingling in arms or legs. #Syncope and collapse | Orthostatic hypotension He denied any prodromal nausea, diaphoresis, visual changes, flushing sensation, atypical neurologic symptoms, or incontinence. This is primarily occurring after he stands and ambulates for a short distance. Pertinent comorbidities include significant coronary artery disease with prior CABG, heart failure with preserved ejection fraction. The patient's initial EKG is not concerning for any acute coronary syndrome, nor the experiencing any anginal equivalent symptoms. Orthostatic vital signs were obtained on the evening of patient's initial admission and were noted to be positive; however, the patient was not symptomatic in any degree. Given the lack of increased heart rate associated with his decreased blood pressure upon standing, this does suggest that he may have a degree of autonomic instability/insufficiency however the lack of associated symptoms and his absence of prodromal symptoms at the time of his actual syncopal episodes is concerning for a primarily conductive cause. Touched base with telemetry monitoring on 02/13 They did notice sinus bradycardia with first degree AV block 50-60bpm on the evening of 02/12 Day of discharge 02/13: Bradycardic at 52bpm this morning, but now around 70bpm at time of discharge; NSR TTE was recently obtained, without significant dynamic change. Given the absence of anginal equivalents and normal EKG, it is unlikely to have a significant change in the dynamics of their cardiac function. No indication to repeat this study at this time. Cardiology recommends Zio patch Touched base with CM Will plan for OP Cardio follow-up at [facility] for Zio patch placement Significant orthostatic hypotension 02/10 and 02/11 Mild improvement with hydration PT recommendation on 02/09: Return home with roommate if able to meet goals while in the hospital Midodrine initiated on 02/12; patient reports it has been very helpful while in the hospital INITIATE midodrine 2.5 mg p.o. TID Continue to HOLD tamsulosin 0.4 mg Blood pressure 02/12 was still dropping with positional change but systolics staying above 100. Patient is less symptomatic. Repeat orthostatics on 02/13 are still positive for a systolic drop; however, patient maintains a blood pressure above 126/64 when standing Will plan for discharge home with close PCP/cardiology follow-up #Allergic conjunctivitis The medial aspect of patient's left eye is erythematous on morning of 02/13 No discharge; patient reports it is itchy and that he has been rubbing it He declines eyedrop Rx at time of discharge; recommended OTC eye lubricant drops if continued irritation #Diabetes mellitus type 2 Longstanding Could be complicated by autonomic neuropathy leading to orthostatic hypotension and syncope Disposition: Discharged home on 02/13; will need Zio patch arranged at the time of discharge Notes For Next Care Provider Patient hospitalized for recurrent syncope and collapse. While suspected orthostatic hypotension/vasovagal syncope, there is still some concern that a conduction issue may be the primary cause. 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 Patient being discharged on midodrine 2.5 mg tablets 3 times daily. Hold tamsulosin until seen for follow-up. Admission HPI Per Admitting Provider Mr. Lima is an 84-year-old male who is active medical conditions include heart failure with preserved ejection fraction in the setting of previous coronary artery bypass graft, CKD stage IIIb among other chronic medical conditions who presents to [facility] for evaluation after witnessed episode of syncope at his primary care physician's office on the same day of presentation. The patient was recently admitted to this facility in the past 2 weeks for similar concerns; at that time the patient's loop diuretic was discontinued given concern for possible intravascular depletion. The patient describes no improvement or resolution of his symptoms since his discharge. He has had no further medication changes since his discharge. He does note that his blood sugar has been persistently difficult to control on his continued treatment with Tresiba without any recent modification to his regimen. He denies any presyncopal symptoms, focal neurologic deficits, vision changes, associated chest pain. He does have persistent dyspnea on exertion that has not significantly changed in the past several weeks nor has it worsened to the degree that was associated with his episodes of syncope. The patient has not followed with any basin finish operator tig welder since his CABG in the fall 2023 Admission Exam Per Admitting Provider General: Adult male in no acute distress Vital Signs: Reviewed HEENT: Normocephalic, atraumatic; pupils equally reactive to light, extraocular motions intact; moist mucous membranes Neck: No palpable lymphadenopathy Cardiovascular: Regular rate and rhythm with grade 2/6 systolic murmur best heard in the left second intercostal space parasternally with no rubs or gal lops; S1 and S2 normal; bilateral radial and posterior tibial pulses 2+; trace bilateral lower extremity edema distal to the mid leg Gastrointestinal: Soft, nondistended Neurologic: CN II-XII grossly intact; no discernible focal weakness nor paresthesias Discharge Exam General: no acute distress; pleasant affect; non-toxic appearing; well-nour ished; cooperative; SpO2 98% on RA HEENT: normocephalic, atraumatic; medial canthus of the left eye is erythematous; watery; no purulent drainage appreciated; PERRLA w/ EOMs intact; vision and hearing intact Neck: supple; no lymphadenopathy; trachea midline Skin: warm, dry without signs of tenting; no cyanosis; no rashes, bruising, lesions, or erythema noted CV: chest wall NTP; RR, mildly bradycardic around 57 bpm; S1/S2 normal; no murmurs/rubs/gallops; pulses intact and symmetric at radial, DP, and PT Lungs: no acute respiratory distress; symmetrical chest wall expansion; clear breath sounds across all lung castro w/o adventitious sounds; no wheezing ABD: Soft, NTP; BS present; no rebound/guarding; no distention MSK: no tics or fasciculations; no edema noted in the LEs b/l, nonerythematous Neuro: A&Ox3; normal mood and affect; fluent speech; no focal deficits; sensation grossly intact in the LEs b/l Discharge Plan Discharge Items Patient Disposition: Home - Self-Care Reason For Visit: RECURRENT SYNCOPE Discharge Diagnosis: Syncope and collapse Condition on Discharge: Good Activity: As commented below Activity Comment: Gradually resume previous activity as tolerated Non-emergency contact: Primary Care Provider Call non-emergency contact if: you have any medication questions, your symptoms worsen and you have a fever Follow-up/Referrals: Kimo Lamar III, CRNP [Primary Care Provider] - 02/16/25 9:20 am (Please arrive 15 min. before your scheduled appointment. Thank you!) Diet: Carb Consistent or DM2 Addtl Attending Provider Instructions: You were hospitalized at [facility] from 02/08 - 02/13 after an episode where you passed out at your PCPs office. The cause of this syncopal episode was unclear on arrival, but thought to be secondary to something called "orthostatic hypotension". This is the most common cause of fainting; it is often related to blood pressure medications, and can occur when standing too quickly. However, there is also some concern that your episodes of passing out are due to a conduction abnormality with your heart. For this reason, we recommend that you follow-up with your basin finish operator tig welder (Jazmin Cuevas) to obtain a Zio patch for further cardiac monitoring. New prescriptions: Midodrine 2.5 mg three times daily Please take this medication at 8AM, 12PM, and 5PM HOLD tamsulosin 0.4mg capsules until seen by your PCP for a follow-up appointment in the next 1 to 2 weeks. If you develop any new or worsening symptoms, such as episodes of passing out, dizziness/lightheadedness with walking, headaches, sensitivity to light, fevers, chest pain, chest palpitations, or trouble breathing, please return to the emergency department immediately. It was a pleasure taking care of you. Please reach out with any questions or concerns. Sincerely, The Hospital medicine team at [facility] Pending Studies at Discharge: No Stand-Alone Forms: My [facility] Medications and DC Order Prescriptions: New midodrine 2.5 mg Tablet 2.5 mg PO TID@0800,1200,1700 Qty: 60 0RF Rx Instructions: Take tablet 3 times per day at 8 AM, 12 PM, and 5 PM for orthostatic hypotension Continued (DME) lancets [OneTouch Delica Plus Lancet] [facility] See Dose Instructions .ROUTE .MEDSUPPLY Qty: 200 3RF Rx Instructions: As directed to check blood sugars two times a day Tresiba FlexTouch U-200 200 unit/mL (3 mL) insulin pen 40 - 50 unit SQ BID Qty: 45 3RF Rx Instructions: 02/08/25 : CURRENTLY 46 UNITS MORNING AND EVENING. atorvastatin 20 mg tablet 20 mg PO HS Qty: 90 3RF (DME) OneTouch Ultra Test Strip See Rx Instructions .ROUTE .COMPLEX Qty: 200 3RF Dose Instruction: TEST TWICE DAILY E11.9 Rx Instructions: TEST TWICE DAILY E11.9 (DME) blood-glucose meter [OneTouch Ultra2 Meter] [facility] See Rx Instructions .Route Qty: 1 0RF Rx Instructions: As directed to check blood sugars two times a day (DME) FreeStyle Roxie 3 Sensor Device See Rx Instructions .MEDSUPPLY Qty: 2 5RF Rx Instructions: Use to check blood glucose three times a day and as needed (DME) FreeStyle Roxie 3 [facility] See Rx Instructions .MEDSUPPLY Qty: 1 0RF Rx Instructions: Use to check blood glucose 3 times daily and as needed for symptomatic hypoglycemia (DME) FreeStyle Roxie 3 Plus Sensor Device See Rx Instructions .Route Qty: 2 5RF Rx Instructions: Change every 15 days aspirin 325 mg tablet 325 mg PO HS docusate sodium 100 mg capsule 100 mg PO BID Held tamsulosin 0.4 mg capsule 0.4 mg PO DAILY Qty: 90 1RF Hold Instructions: Resume on 02/27/25. HOLD medication until seen by PCP for follow-up appointment Discharge Orders: Discharge Order (Routine); Ordered 02/13/25 Ordered By: Thaddeus Stokes/Other Patient Handouts: Orthostatic Hypotension Admission Data Admit Date/Time: 02/10/25 17:25 Attending Provider: Chevy Norris Admit Provider: Steven Storey Primary Care Provider: Kimo Lamar III Other Providers: Steven Storey Other Interventions: Discharge Summary Assessment (RN) Last Done: 02/13/25 09:57 Hospital Stay Data Consultations 02/08/25 15:12 ED Decision to Admit Stat Diagnostic Imagining Performed 02/09/25 15:30 Carotid duplex [US carotid doppler BI] Routine Discharge Instructions Given to Patient (Per Discharging Provider) You were hospitalized at [facility] from 02/08 - 02/13 after an episode where you passed out at your PCPs office. The cause of this syncopal episode was unclear on arrival, but thought to be secondary to something called "orthostatic hypotension". This is the most common cause of fainting; it is often related to blood pressure medications, and can occur when standing too quickly. However, there is also some concern that your episodes of passing out are due to a conduction abnormality with your heart. For this reason, we recommend that you follow-up with your basin finish operator tig welder (Jazmin Cuevas) to obtain a Zio patch for further cardiac monitoring. New prescriptions: Midodrine 2.5 mg three times daily Please take this medication at 8AM, 12PM, and 5PM HOLD tamsulosin 0.4mg capsules until seen by your PCP for a follow-up appointment in the next 1 to 2 weeks. If you develop any new or worsening symptoms, such as episodes of passing out, dizziness/lightheadedness with walking, headaches, sensitivity to light, fevers, chest pain, chest palpitations, or trouble breathing, please return to the emergency department immediately. It was a pleasure taking care of you. Please reach out with any questions or concerns. Sincerely, The Hospital medicine team at [facility] Total Time Total Time Spent Total Time Spent (In Minutes): 25 C[place] [id number] IN/OBS DISCH 30 MIN/LESS Patient Type Established History Comprehensive Exam Comprehensive Medical Decision Making Moderate Complexity Diagnoses Syncope, unspecified syncope type R55 Syncope type: unspecified Chronic heart failure with preserved ejection fraction (HFpEF) I50.32 Heart failure chronicity: chronic
[2025-02-13 10:00] VITALS: BP 151/68
== END 2025-02-13 11:33 | disposition home or self-care (01) | DRG 74 ==
LOC: SUATTDRO → 2N 13:39 → ED 13:39 → SUATTDRO 15:32 → 2N 16:24 → SUATTDRO 02-10 17:25